=== PATIENT | female | born 1950 | race Caucasian/White ===

== ENCOUNTER 2019-08-17 20:31 | Inpatient (IN) | payer OTHER, SELFPAY ==
--- NOTE | ~2019-08-17 | XR_ITS ---
EXAMINATION: XR ankle LT min 3V EXAM DATE: 08/17/2019 22:58 INDICATION: Initial encounter following injury, with pain of the left ankle. TECHNIQUE: Left ankle frontal, lateral and oblique projections obtained and reviewed. There is no pr ior study for comparison. FINDINGS: The left ankle mortise appears intact. Sequela from prior medial malleolar avulsion frac ture. There are no acute fractures or dislocations identified. There is no subcutaneous gas. The so ft tissue is unremarkable. There are no radiopaque foreign bodies. IMPRESSION: No acute osseous findings. Reviewed, dictated and finalized at location A. IMPRESSION: No acute osseous findings.
--- NOTE | ~2019-08-17 | XR_ITS ---
EXAMINATION: XR abdomen NG/feed tube insert DATE: 08/24/2019 11:38 INDICATION: Nasogastric tube placement. TECHNIQUE: A supine view of the abdomen and lower chest was obtained for evaluation of feeding tube placement. COMPARISON: 08/21/2019 FINDINGS: Nasogastric tube tip in proximal side port in the body of the stomach. There appears to be significan t mass effect upon what appears to be gas-filled distal stomach which extends from left to right acro ss the upper abdomen cephalad to the transverse colon. No dilated small bowel to suggest obstruction. Cholecystectomy clips in the left upper quadrant. Airspace opacities in the left lower lung zone. Mi ld to moderate thoracolumbar spondylosis. IMPRESSION: 1. Nasogastric tube in the proximal stomach. 2. Nonspecific bowel gas pattern with apparent mass effect upon the caudal margin of the more distal stomach concerning for right upper quadrant mass. Recommend further evaluation with contrast-enhanced CT of the abdomen and pelvis. 3. Mild airspace opacities in the left mid to lower lung zone likely combination of atelectasis and p rominent left paracardial fat pad although pneumonia not excludable. Reviewed, dictated and finalized at location A. IMPRESSION: 1. Nasogastric tube in the proximal stomach. 2. Nonspecific bowel gas pattern with apparent mass effect upon the caudal dell in of the more distal stomach concerning for right upper quadrant mass. Recomme nd further evaluation with contrast-enhanced CT of the abdomen and pelvis. 3. Mild airspace opacities in the left mid to lower lung zone likely combinatio n of atelectasis and prominent left paracardial fat pad although pneumonia not excludable.
--- NOTE | ~2019-08-17 | CT_ITS ---
EXAMINATION: CT abdomen pelvis w con DATE: 08/25/2019 08:22 INDICATION: Cystic right upper quadrant mass TECHNIQUE: Computed tomography (CT) of the abdomen and pelvis was performed with 100 mL Omnipaque-350 intravenous contrast. Automated exposure control and iterative reconstruction technique were employe d. The dose-length product was 668.00 mGy-cm. COMPARISON: Ultrasound dated 08/24/2019 FINDINGS: Mild atelectasis at the left lower lobe and lingula. Heart size is normal. No pericardial or pleural effusion. Nasogastric tube tip possibly 3 cm below the level of the gastroesophageal junction. Small amount of likely refluxed fluid in the distal esophagus. 8 mm cyst in the left hepatic lobe. The comm on bile duct is mildly dilated to 10 mm and there is minimal central intrahepatic biliary ductal dila tion, both findings which are within normal limits post cholecystectomy with cholecystectomy clips at the gallbladder fossa. There is a large thin-walled fluid attenuation cystic lesion centered at the head of the pancreas whi ch measures 14.1 x 8.9 x 12.3 cm. There is a thin internal septation which appears incomplete with a large central perforation. No evident solid nodular soft tissue component. There is significant mass effect upon the adjacent structures with the distal stomach and duodenum extending around the periphe ry of the mass, the body of the pancreas and normal caliber main pancreatic duct are draped along the cephalad margin of the lesion and the main portal vein abutting the posterior margin of the lesion m ildly compressed between the cystic lesion and the main hepatic artery. The tail of the pancreas is u nremarkable. No surrounding inflammatory stranding to suggest abscess or acute pancreatitis/walled of f necrosis. No internal gas to suggest communication with the bowel. Spleen, bilateral adrenal glands are normal. Cortical scarring and 1.5 cm cyst at the left kidney. 7 mm lesion in the right kidney with well-defined margins but intermediate attenuation which is indeter minate but statistically most likely to represent a proteinaceous/hemorrhagic cyst. There are a few d iverticula along the colon without adjacent inflammatory change to suggest active colitis. Small marybeth l and appendix are normal. Bladder is normal. The uterus is not identified and has likely been surgic ally resected. No free intraperitoneal gas or fluid. No pathologically enlarged abdominal or pelvic l ymphadenopathy. Mild lumbar levocurvature with severe spondylosis. Hemangioma at L3. Moderate thoraci c spondylosis. IMPRESSION: 1. 14.1 x 8.9 x 12.3 cm thin-walled cystic mass centered at the head of the pancreas with no evident solid soft tissue component. The differential diagnosis includes pancreatic cyst, pseudocyst or macro cystic mucinous tumor. 2. Nasogastric tube tip 3 cm above the gastroesophageal junction. Recommend advancement by 10 cm to p lace the proximal side port below the level of the gastroesophageal junction. 3. Indeterminate 7 mm intermediate attenuation right renal lesion statistically most likely to repres ent a pronation/hemorrhagic cyst although solid enhancing neoplasm cannot be absolutely excluded. Rec ommend 6-12 month follow-up pre and postcontrast MRI or CT. Reviewed, dictated and finalized at location A. IMPRESSION: 1. 14.1 x 8.9 x 12.3 cm thin-walled cystic mass centered at the head of the barreto creas with no evident solid soft tissue component. The differential diagnosis i ncludes pancreatic cyst, pseudocyst or macrocystic mucinous tumor. 2. Nasogastric tube tip 3 cm above the gastroesophageal junction. Recommend adv ancement by [address] the proximal side port below the level of the gastro esophageal junction. 3. Indeterminate 7 mm intermediate attenuation rig
--- NOTE | ~2019-08-17 | XR_ITS ---
EXAMINATION: XR knee LT 3V DATE: 08/20/2019 08:35 INDICATION: Left knee injury and pain. TECHNIQUE: 3 views of left knee were obtained. COMPARISON: None. FINDINGS: Bone alignment is normal. No fracture. There is moderate osteoarthritis of medial and later al compartments and severe osteoarthritis of patellofemoral compartment. There is a small knee joint effusion. There are loose bodies in the knee joint measuring up to 12 mm. IMPRESSION: 1. Severe left knee osteoarthritis. 2. Small left knee joint effusion with loose bodies. Reviewed, dictated and finalized at location A.
--- NOTE | ~2019-08-17 | XR_ITS ---
XR chest 1V portable DATE: 08/19/2019 06:21 INDICATION: Cough TECHNIQUE: Portable upright AP chest on 08/19/2019 at 0550 hours COMPARISON: None FINDINGS: The lungs are hyperinflated,, with mild volume loss suggested on the left versus right and apparent mild leftward shift of the heart mediastinum. No pulmonary infiltrate or consolidation, pleu ral effusion or pulmonary vascular congestion or pneumothorax is evident. Diffuse osteopenia. Prominent osteoarthritic spurring at the left glenohumeral joint. Dextroscoliosis of the thoracolumbar spine. Surgical clips appear to overlie the right upper quadrant, likely due to cholecystectomy. IMPRESSION: Bilateral hyperinflation; suggestion of some volume loss of the left lung compared to the right Reviewed, dictated and finalized at location A. IMPRESSION: Bilateral hyperinflation; suggestion of some volume loss of the lef t lung compared to the right
--- NOTE | ~2019-08-17 | CT_ITS ---
EXAMINATION: CT brain wo con EXAM DATE: 08/17/2019 22:43 INDICATION: Weakness. TECHNIQUE: Spiral CT of the head was performed without contrast. Axial, coronal and sagittal images were reviewed. The dose-length product (DLP) for this examination was 681.00 mGy-cm. The exposure w as tailored according to patient size, and iterative reconstruction (ASIR) was used as additional dos e reduction technique. There is no prior study for comparison. FINDINGS: There is no acute intraparenchymal hemorrhage. No evidence of intraparenchymal brain mass lesion. No evidence of acute infarction. Please note that initial head CT has limited sensitivity f or small or acute infarctions. There is mild periventricular and subcortical hypodensity, nonspecific but probably related to small vessel ischemic disease. There is mild to moderate prominence of the sulci and ventricles related to cerebral atrophy. There is hyperostosis frontalis. There is intracr anial carotid arteriosclerosis. There are no extra-axial collections. There is no mass effect or mi dline shift. The orbits are unremarkable. Soft tissue is unremarkable. The visualized sinuses and mastoid air cells are well aerated. IMPRESSION: 1. No acute intracranial findings. 2. Chronic age related findings. Reviewed, dictated and finalized at location A.
--- NOTE | ~2019-08-17 | XR_ITS ---
EXAMINATION: XR small bowel follow through EXAM DATE: 08/25/2019 14:43 INDICATION: Dilated duodenum, retained gastric contents, vomiting. TECHNIQUE: Vessel Welder radiograph was acquired. Small bowel series was performed with water-soluble contr ast solution. This was injected through the nasogastric tube in place on patient arrival. A total of 5 KUB images were obtained with fluoroscopy time 0.0 minutes. Correlation was made with CT from [facility] same date. FINDINGS: On the 15 and 1 hour images, contrast remained in the stomach, the patient was reportedly w anting to lay on her left side, which would prevent dumping into the duodenum. On the 2 hour image, t here is contrast throughout the small bowel and starting to enter the colon. This further opacifies o n a 3.5 hour image. There is an intra-abdominal mass, most likely a pseudocyst correlating with CT obtained earlier causi ng mass effect on the gastric pylorus and duodenum which is draped around this. Ileal and jejunal fold patterns are normal. There is no small bowel wall thickening or mass effect d isplacing small bowel. There are no intraluminal filling defects identified. There is no small marybeth l dilation. Terminal ileum is normal in appearance. IMPRESSION: Pancreatic mass most likely large pancreatic head pseudocyst causing mass effect on gastr ic pylorus and duodenal sweep. Normal transit time of 2 hours. Reviewed, dictated and finalized at location A. IMPRESSION: Pancreatic mass most likely large pancreatic head pseudocyst causin g mass effect on gastric pylorus and duodenal sweep. Normal transit time of 2 h ours.
--- NOTE | ~2019-08-17 | XR_ITS ---
EXAMINATION: XR ankle RT min 3V EXAM DATE: 08/17/2019 22:58 INDICATION: Initial encounter following injury, with pain of the right ankle. TECHNIQUE: Right ankle frontal, lateral and oblique projections obtained and reviewed. There is no p rior study for comparison. FINDINGS: There is acute nondisplaced oblique fracture through the right fibular distal calf cyst ex tending into the syndesmosis. The right ankle mortise relationship appears intact. Closed, posttrauma tic fracture. There is overlying soft tissue swelling. No other acute findings. There are no acute fractures or dislocations identified. There is no subcutaneous gas. The soft tissue is unremarkable . There are no radiopaque foreign bodies. IMPRESSION: Acute nondisplaced right distal fibular metaphyseal fracture into syndesmosis; recommend orthopedic consult. Reviewed, dictated and finalized at location A. IMPRESSION: Acute nondisplaced right distal fibular metaphyseal fracture into s yndesmosis; recommend orthopedic consult.
--- NOTE | ~2019-08-17 | US_ITS ---
EXAMINATION: US right upper quadrant DATE: 08/24/2019 17:58 INDICATION: Elevated liver function tests. TECHNIQUE: Multiple grayscale and Doppler ultrasound images of the abdomen were obtained. COMPARISON: None FINDINGS: Evaluation is somewhat limited by large amount of gas scattered throughout the stomach and bowels lik shellie related to the recent endoscopy as well as relatively high riding position of the liver and right kidney resulting in scattered shadowing from the overlying ribs. The region of the pancreas is obscu red. Liver has normal echogenicity and contour. No liver lesion identified. No intrahepatic biliary d uct dilation suspected. Portal venous flow was seen in the hepatopetal, normal direction and has norm al Doppler waveform. The gallbladder is not visualized and per patient was resected in 1991. Common b ile duct measures 3-4 mm in diameter which is normal. Visualized portion of the right kidney demonstr ates normal contour and echogenicity with no hydronephrosis. There is a nonspecific large cystic lesi on measuring 12.3 x 8.4 x 14.5 cm in the right upper quadrant which likely accounts for the mass effe ct noted on the prior KUB. It is unclear if and from which organ or structure the cystic lesion arise s with possibilities including liver, common bile duct, pancreas, duodenum, right kidney, adrenal gla nd, retroperitoneum or vasculature. There is however no internal flow on color Doppler to suggest ane urysm. IMPRESSION: 1. Indeterminate 14.5 x 12.3 x 8.4 cm cystic structure in the right upper quadrant. Recommend contras t-enhanced CT for further evaluation. 2. Nonvisualized gallbladder which is reportedly surgically absent with no evident intrahepatic ducta l or ductal dilation. 3. Limited study due to extensive bowel gas likely related to recent endoscopy. Reviewed, dictated and finalized at location A. IMPRESSION: 1. Indeterminate 14.5 x 12.3 x 8.4 cm cystic structure in the right upper quadr ant. Recommend contrast-enhanced CT for further evaluation. 2. Nonvisualized gallbladder which is reportedly surgically absent with no evid ent intrahepatic ductal or ductal dilation. 3. Limited study due to extensive bowel gas likely related to recent endoscopy.
--- NOTE | ~2019-08-17 | XR_ITS ---
EXAMINATION: XR abdomen/kub 1V INDICATION: Abdominal distention TECHNIQUE: Supine views of the abdomen were obtained on 2 radiographs. COMPARISON: None FINDINGS: There are no dilated loops of bowel. The bowel gas pattern is normal. Surgical clips in the right upper quadrant are likely from prior cholecystectomy. There is moderate lumbar spondylosis. IMPRESSION: 1. No radiographic correlate for the patient's symptoms. Reviewed, dictated and finalized at location A.
[2019-08-17 20:39] VITALS: BP 110/51; PULSE 96; RESP 16; TEMP 36.9; O2SAT 100
--- NOTE | 2019-08-17 22:12 | ED_ITS ---
I attest that this documentation has been prepared under the direction and in the presence of Yolanda Fontenot MD. Bulmaro Carroll Scribe 08/17/19;22:12 HPI - Extremity Injury (Upper) General Chief Complaint: Extremity Injury, Upper Stated Complaint: bilateral ankle pain s/p fall Time Seen by Provider: 08/17/19 21:42 Related Data Allergies Allergy/AdvReac Type Severity Reaction Status Date / Time diphenhydramine Allergy Severe Other Verified 12/05/17 19:52 morphine Allergy Severe Other Verified 12/05/17 19:52 DIURETICS AdvReac Intermediate Other Uncoded 12/05/17 19:52 [facility] Social History Social History Gender identity (if verbalized by the patient): Female Course Vital Signs Vital signs: Vital Signs Temperature 98.4 F 08/17/19 20:39 Pulse Rate 96 08/17/19 20:39 Respiratory Rate 16 08/17/19 20:39 Blood Pressure 110/51 L 08/17/19 20:39 Pulse Oximetry 100 08/17/19 20:39 Temperature 98.4 F 08/17/19 20:39 Pulse Rate 96 08/17/19 20:39 Respiratory Rate 16 08/17/19 20:39 Blood Pressure 110/51 L 08/17/19 20:39 Pulse Oximetry 100 08/17/19 20:39
--- NOTE | 2019-08-17 22:17 | ED.GENADULT ---
HPI - General Adult General Chief complaint: Extremity Injury, Upper Stated complaint: bilateral ankle pain s/p fall Time Seen by Provider: 08/17/19 21:42 Source: patient and RN notes reviewed Mode of arrival: EMS Limitations: no limitations History of Present Illness HPI narrative: A 69 y/o female presents to the ED via EMS with constant, worsening, severe, HEBER ankle pain for the past 2 days. She states that she had a ground level fall 2 days ago and was seen at [place], then d/c home after having negative x-rays and a CT. She reports that she was able to ambulate with a cane for a couple days but that today she has been unable too walk d/t the pain. She notes that movement or trying to bare weight aggravates the pain and that she took 800 mg of Ibuprofen last night but denies it alleviating her pain. She also denies any fevers or numbness. complaint: HEBER ankle pain Onset (ago): day(s) (2) Location: lower extremity (HEBER ankles) Pain Consistency: constant (worsening) Relieving factors: none Exacerbating factors: movement and other (trying to bare weight) Associated symptoms: other (unable to ambulate d/t pain) Treatments prior to arrival: NSAID (Ibuprofen) Related Data Allergies Allergy/AdvReac Type Severity Reaction Status Date / Time diphenhydramine Allergy Severe Other Verified 12/05/17 19:52 morphine Allergy Severe Other Verified 12/05/17 19:52 DIURETICS AdvReac Intermediate Other Uncoded 12/05/17 19:52 Review of Systems Review of Systems: Narrative: CONSTITUTIONAL: Denies fever. MUSCULOSKELETAL: Reports HEBER ankle pain and not being able to ambulate d/t the pain. NEUROLOGIC: Denies numbness All systems reviewed & are unremarkable except as noted in HPI and below PMFSH Past Medical History Medical History (Updated 08/17/19 @ 23:54 by Yolanda Fontenot MD) MVP (mitral valve prolapse) Seizures Surgical History Surgical History (Updated 08/17/19 @ 22:39 by Bulmaro Carroll) Surgical history unknown Social History Social History (Updated 08/17/19 @ 22:39 by Bulmaro Carroll) Smoking status: Unknown if ever smoked Gender identity (if verbalized by the patient): Female Exam Narrative: Exam Narrative: GENERAL: Well-appearing, well-nourished, and in no acute distress. HEAD: Normocephalic, atraumatic. EYES: PERRLA and EOMI. ENT: Nares clear, no rhinorrhea or epistaxis. Mucous membranes moist. NECK: Supple. CHEST: Clear to auscultation. No respiratory distress. HEART: Regular rate and rhythm. No murmur heard. Normal peripheral pulses. ABDOMEN: Soft, nontender, nondistended, normal active bowel sounds. EXTREMITIES: Tenderness to the lateral and medial malleus of her HEBER ankles greatest over the right ankle, nonpitting edema to HEBER ankles, no deformity, DP pulses 2+ HEBER. Intact sensation distally. SKIN: Warm, dry, no rash. NEURO: No focal deficits. Alert and oriented X3. Course Course Emergency Course: Patient presented to the emergency department for evaluation of continued bilateral ankle pain after a fall several days ago. At the time of initial assessment, patient is neurovascularly intact. She has some point tenderness to bilateral ankles, greatest on the right lateral malleolus with some edema. No obvious deformity. Because the patient has been feeling weak, he wanted to expand the work-up. No focal neurological deficits on exam. X-ray imaging does show a right distal fibular oblique fracture. Patient will be splinted. Because the patient is having such pain and difficulty with ambulation, she will likely require placement as she is not been able to function well at home, and family cannot lift the patient. Patient was then admitted in stable condition. Vital Signs Vital signs: Vital Signs Temperature 36.9 C 08/17/19 20:39 Pulse Rate 96 08/17/19 20:39 Respiratory Rate 16 08/17/19 20:39 Blood Pressure 110/51 L 08/17/19 20:39 Pulse Oximetry 100 08/17/19 20:39 Temperature 36.9 C 08/17/19 20:39
--- NOTE | 2019-08-17 22:28 | ECG_ITS ---
Measurements Intervals [place] Rate: 92 P: 23 ID: [id number] QRS: 30 QRSD: 86 T: 1 QT: 374 QTc: 464 Interpretive Statements SINUS RHYTHM EARLY PRECORDIAL R/S TRANSITION NONSPECIFIC ST & T-WAVE ABNORMALITY- ANT/INF LEADS BORDERLINE ECG Electronically Signed On 08-18-2019 7:08:43 CDT by Ayaz East D.O.
[2019-08-17 23:16] LABS: Basophils Absolute Auto 0.1 K/mm3 (0.0-0.1); Basophils Percent Auto 0.5 % (0.2-1.2); Eosinophils Absolute Auto 0.2 K/mm3 (0-0.3); Eosinophils Percent Auto 1.7 % (0-4.4); Hematocrit 38.7 % (37.0-47.0); Hemoglobin 12.9 g/dL (12.0-15.0); Immature Granulocyte Absolute 0.06 K/mm3 (0.00-0.031); Immature Granulocyte Percent A 0.6 % (0-0.5); Lymphocytes Absolute Auto 2.32 K/mm3 (0.9-3.2); Lymphocytes Percent Auto 23.6 % (18.3-44.2); Mean Corpuscular HGB Conc 33.3 g/dl (32-36); Mean Corpuscular Hemoglobin 32.7 pg (26-34); Mean Corpuscular Volume 98.2 fl (80-100); Mean Platelet Volume 9.8 fl (7.4-10.4); Monocytes Absolute Auto 1.3 K/mm3 (0.1-0.6); Monocytes Percent Auto 13.5 % (2.6-8.5); Neutrophils Absolute Auto 5.9 K/mm3 (1.3-6.7); Neutrophils Percent Auto 60.1 % (45.5-73.1); Platelet Count Result 283 k/mm3 (150-375); Red Blood Count 3.94 M/mm3 (4.2-5.4); Red Cell Distribution Width 13.4 % (11.5-14.5); White Blood Count 9.9 K/mm3 (4.5-10.0)
[2019-08-17] MEDS: SODIUM CHLORIDE 0.9% IV 1,000 ML 999 ML IV CONT (23:28)
[2019-08-17] MEDS: ACETAMINOPHEN 500 MG TABLET 1000 MG PO (23:28)
[2019-08-17 23:32] LABS: Blood Urea Nitrogen 13 mg/dL (7-17); CRP 7.9 mg/dL (<1.0); Calcium 8.7 mg/dL (8.4-10.2); Carbon Dioxide 26 mmol/L (22-30); Chloride 107 mmol/L (98-107); Estimated Glomerular Filt Rate > 60; Glucose 115 mg/dL (65-105); INR 1.1; Potassium 3.9 mmol/L (3.4-5.0); Prothrombin Time 13.8 Seconds (11.1-14.7); Sodium 138 mmol/L (137-145)
[2019-08-17 23:33] LABS: Partial Thromboplastin Time 46.7 SECONDS (22.3-36.8)
[2019-08-17] MEDS: KETOROLAC 15 MG/ML VIAL (*BKC) 30 MG IV PUSH (23:41)
[2019-08-17 23:50] LABS: Troponin I < 0.012 ng/mL (0.000-0.034)
[2019-08-17 23:56] LABS: Erythrocyte Sedimentation Rate 43 mm/hr (0-20)
[2019-08-17 23:58] VITALS: TEMP 36.8
[2019-08-18] VITALS (10 sets, daily range): BP systolic 100–138; BP diastolic 47–68; PULSE 84–100; RESP 16–18; TEMP 36.4–36.8; O2SAT 93–96; BMI 30.7
[2019-08-18 00:35] LABS: Add Urine Microscopic? YES; Appearance Urine Clear (Clear); Bacteria Urine Trace /hpf; Bilirubin Urine Negative (Negative); Blood Urine Negative (Negative); Color Urine Yellow (Yellow); Glucose Urine UA Negative (Negative); Ketones Urine Negative (Negative); Leukocyte Esterase Ur Trace LEU/UL (Negative); Mucus Urine Rare /lpf; Nitrate Urine Negative (Negative); Protein Urine Negative (Negative); RBC Urine 0-2 /hpf (0-2); Specific Grav Ur 1.018 (1.001-1.035); Squamous Epithelial Cell Urine Few /hpf (Few); Urobilinogen Urine Negative mg/dL (<2.0); WBC Urine 0-3 /hpf
--- NOTE | 2019-08-18 02:31 | ADMGEN ---
This patient, Roopa Hough, was admitted to [facility] Surg Room 331-02. Patient/family oriented to hospital policies and general routines including ID bracelet, bed and alarms, visiting hours, pain management, procedures, bathroom and other care routines, personal items, smoking policy, room service/diet, and visiting hours. Valuables list has been completed. Information on how to activate the Rapid Response Team has been discussed. Patient/Family are encouraged to report perceived risks to care and to ask questions if they do not understand what they are told or what they should do.
[2019-08-18] MEDS: IBUPROFEN 400 MG TABLET PO (09:41)
[2019-08-18] MEDS: DOCUSATE SODIUM 100 MG CAPSULE PO ×2 (09:45→18:16)
[2019-08-18] MEDS: VITAMIN E 400 UNIT CAPSULE PO (09:45)
[2019-08-18] MEDS: CHOLECALCIFEROL 1,000 UNIT TABLET 1000 UNITS PO (09:45)
[2019-08-18] MEDS: PRIMIDONE 250 MG TABLET PO ×3 (09:45→18:17)
[2019-08-18] MEDS: ASPIRIN 325 MG TABLET PO (09:45)
[2019-08-18] MEDS: ASCORBIC ACID 500 MG TABLET PO (09:45)
[2019-08-18] MEDS: OMEGA 3 POLYUNSAT FATTY ACIDS 1 GM CAP PO ×3 (09:45→18:16)
[2019-08-18] MEDS: PROPRANOLOL HCL 20 MG TABLET 80 MG PO ×2 (09:46→18:17)
[2019-08-18] MEDS: THIAMINE HCL 100 MG TABLET PO (09:47)
--- NOTE | 2019-08-18 10:30 | PCOTNOTE ---
Awaiting orthopedic consult. Will attempt OT evaluation after consult and when medically appropriate.
--- NOTE | 2019-08-18 11:56 | PM.PROC ---
Procedure Note - Detailed Date of procedure: 08/20/19 Pre-op diagnosis: right fibular fracture Surgeon: Dharmesh Ahmadi MD
--- NOTE | 2019-08-18 13:01 | PCPTNOTE ---
PT eval on hold awaiting Ortho consult. Will follow.
[2019-08-18 14:05] LABS: Vitamin D 25 Hydroxy 28.1 ng/mL
--- NOTE | 2019-08-18 16:59 | PM.CNOR ---
Assessment and Plan Additional Plan Patient is a 69-year-old female who fell 3 days ago injuring her right ankle. two weeks ago she fell injuring her left ankle and this was getting better. She has been unable to get around with her new injury to the right ankle. she was seen in the ER last night and had x-rays of both ankles. The ankle x-ray on the left is negative. The ankle x-ray in the right demonstrates a truly nondisplaced oblique Jennifer B type lateral malleolus fracture with no disruption of the mortise visible. She is admitted for safety reasons as she is unable to ambulate at home. She does have a history of heart problems and takes a full-strength aspirin daily. She denied any personal or family history of thromboembolic complications however her sister reported that their father of pulmonary emboli. He had other conditions he had these with the [place] as well as congestive heart failure but she does have a positive family history and since she is going to be quite immobile potentially I would recommend some sort of DVT prophylaxis pharmacologically. Since she is on a full-strength aspirin per day I will start her on Lovenox 40 mg daily subcu. Her platelets were 283,000. On examination today she is a pleasant female in no acute distress. She had minimal tenderness over the distal fibula on the left ankle just proximal to the lateral malleolus no swelling foot was nontender should full range of motion over foot and ankle. on the right side she has a well-padded OCL type short-leg splint in place that is comfortable for her. She wiggles her toes she reports no numbness or tingling. She denies any other injury. I will ask physical therapy to work on transfers and also ambulation for short distances and she is able to Lexie not to wean Junior non-weight placement in rehab is being considered. Her 25 hydroxy vitamin D was 28. We will supplement with ergo calciferol 90284 units per week for 8 weeks. She should have a bone density test done after discharge and I have discussed this with her in her sister. We can get this when it is convenient. After tumor 3 weeks when her symptoms improve we can see if she can tolerate some light partial weight-bearing in a Cam walker boot which will improve her activity level. I expect that the fracture is stable enough to allow that History of Present Illness HPI Consult date: 08/18/19 Chief complaint: right fibular fracture PMFSH Past Medical History Medical History (Updated 08/17/19 @ 23:54 by Yolanda Fontenot MD) MVP (mitral valve prolapse) Seizures Surgical History Surgical History (Updated 08/17/19 @ 22:39 by Bulmaro Carroll) Surgical history unknown Family History Family History (Updated 08/18/19 @ 02:51 by Ria Lay RN) Mother Uterine cancer Father Emphysema lung Mesothelioma Sibling Asthma Bronchitis Social History Social History (Updated 08/17/19 @ 22:39 by Bulmaro Carroll) Smoking status: Never smoker Second hand tobacco smoke exposure: Yes Alcohol intake: never Substance use: never Gender identity (if verbalized by the patient): Female Spiritual care concerns: No Agree to blood products: Yes Meds Home Medications and Allergies Home Medications Medication Instructions Recorded Confirmed Type ascorbic acid (vitamin C) [Vitamin 500 mg PO DAILY 08/18/19 08/18/19 History C] aspirin [Tank Aspirin] 325 mg PO DAILY 08/18/19 08/18/19 History cholecalciferol (vitamin D3) 1,000 unit PO DAILY 08/18/19 08/18/19 History [Vitamin D3] docusate sodium 100 mg PO BID 08/18/19 08/18/19 History melatonin 3 mg PO HS 08/18/19 08/18/19 History omega 6-mfn-tna-fish oil [Fish Oil] 1 cap PO TID 08/18/19 08/18/19 History phenytoin sodium extended 100 mg PO BID 08/18/19 08/18/19 History primidone 250 mg PO TID 08/18/19 08/18/19 History propranolol 80 mg PO BID 08/18/19 08/18/19 History thiamine HCl (vitamin B1) 100 mg PO DAILY 08/18/19 08/18/19 History vitam
--- NOTE | 2019-08-18 17:46 | PM.IMHP ---
H&P: HPI History of Present Illness Chief complaint: right fibular fracture Narrative: Roopa Hough is a 69 year old female fell out of her bed, left ankle folded over and she fell straight down. pt 69 y/o was seen at [place], and was discharged home after having negative x-rays and a CT.pt had having continued ankle pain, pt had X-ray imaging does show a right distal fibular oblique fracture.pt to see orthopedics. Splint in place. pt has history of mvp , seizures, pt is having bad cough today. no other symptoms apart from ankle pain Review of Systems Review of Systems: All systems reviewed & are unremarkable except as noted in HPI and below Respiratory: Respiratory: Reports cough Musculoskeletal: Comments: ankle pain PMFSH Past Medical History Medical History MVP (mitral valve prolapse) Seizures Surgical History Surgical History Surgical history unknown Family History Family History Mother Uterine cancer Father Emphysema lung Mesothelioma Sibling Asthma Bronchitis Social History Social History Smoking status: Never smoker Second hand tobacco smoke exposure: Yes Alcohol intake: never Substance use: never Gender identity (if verbalized by the patient): Female Spiritual care concerns: No Agree to blood products: Yes Meds Home Medications and Allergies Home Medications Medication Instructions Recorded Confirmed Type ascorbic acid (vitamin C) [Vitamin 500 mg PO DAILY 08/18/19 08/18/19 History C] aspirin [Tank Aspirin] 325 mg PO DAILY 08/18/19 08/18/19 History cholecalciferol (vitamin D3) 1,000 unit PO DAILY 08/18/19 08/18/19 History [Vitamin D3] docusate sodium 100 mg PO BID 08/18/19 08/18/19 History melatonin 3 mg PO HS 08/18/19 08/18/19 History omega 8-aex-srp-fish oil [Fish Oil] 1 cap PO TID 08/18/19 08/18/19 History phenytoin sodium extended 100 mg PO BID 08/18/19 08/18/19 History primidone 250 mg PO TID 08/18/19 08/18/19 History propranolol 80 mg PO BID 08/18/19 08/18/19 History thiamine HCl (vitamin B1) 100 mg PO DAILY 08/18/19 08/18/19 History vitamin E 400 unit PO DAILY 08/18/19 08/18/19 History Allergies Allergy/AdvReac Type Severity Reaction Status Date / Time diphenhydramine Allergy Severe Other Verified 12/05/17 19:52 morphine Allergy Severe Other Verified 12/05/17 19:52 DIURETICS AdvReac Intermediate Other Uncoded 12/05/17 19:52 Vital Signs Vital Signs - 24 hr 08/17/19 20:39 08/17/19 23:58 08/18/19 00:11 Temperature 36.9 C 36.8 C 36.8 C Pulse Rate 96 Respiratory Rate 16 Blood Pressure 110/51 L Pulse Oximetry 100 08/18/19 01:05 08/18/19 02:10 08/18/19 06:00 Temperature 36.8 C 36.4 C 36.4 C Pulse Rate 90 98 91 Respiratory Rate 18 18 18 Blood Pressure 110/68 100/63 113/60 Pulse Oximetry 93 93 95 08/18/19 09:46 08/18/19 14:40 Temperature 36.4 C Pulse Rate 100 90 Respiratory Rate 16 Blood Pressure 106/47 L Pulse Oximetry 95 Exam Const: General: other (morbidly obese ) Nutritional Appearance: well nourished HENMT: Head: normocephalic Eyes: General: appearance normal, both eyes and all related structures Pupils: Equal, round and reactive pupils present Neck: Neck: supple Chest: Chest palpation & inspection: normal inspection of the chest Resp: Effort & Inspection: normal respiratory effort Auscultation: wheezes Cardio: Jugular venous distension: no JVD Rhythm: regular rhythm Heart sounds: S1 normal heart sound present and S2 normal heart sound present GI: Inspection: normal to inspection GI Palp: No abdominal tenderness, Yes Soft to palpation and No Tenderness to palpation present (GI) Auscultation: normal bowel sounds : General: Yes no CVA tenderness Back/Spine/Pelvis: Juany
[2019-08-18] MEDS: ALBUTEROL SULFATE NEB 2.5 MG/0.5 ML INH INHALATION (19:26)
[2019-08-18] MEDS: MELATONIN 3 MG TABLET PO (22:16)
[2019-08-18] MEDS: PHENYTOIN SODIUM 100 MG CAP 200 MG PO (22:16)
[2019-08-19] MEDS: GUAIFENESIN 200 MG/10 ML UDC PO ×3 (05:50→20:57)
[2019-08-19 06:00] VITALS: BP 105/55; PULSE 88; RESP 18; TEMP 36.7; O2SAT 94
[2019-08-19 06:43] LABS: Hemoglobin 11.6 g/dL (12.0-15.0); Mean Corpuscular HGB Conc 33.1 g/dl (32-36); Mean Corpuscular Hemoglobin 32.7 pg (26-34); Mean Corpuscular Volume 98.6 fl (80-100); Platelet Count Result 245 k/mm3 (150-375); Red Blood Count 3.55 M/mm3 (4.2-5.4); Red Cell Distribution Width 13.4 % (11.5-14.5)
[2019-08-19 07:00] LABS: Blood Urea Nitrogen 13 mg/dL (7-17); Calcium 8.3 mg/dL (8.4-10.2); Carbon Dioxide 23 mmol/L (22-30); Chloride 110 mmol/L (98-107); Estimated CRCL calculation 77 ml/min; Estimated Glomerular Filt Rate > 60; Glucose 110 mg/dL (65-105); Potassium 4.1 mmol/L (3.4-5.0); Sodium 140 mmol/L (137-145)
[2019-08-19] MEDS: VITAMIN E 400 UNIT CAPSULE PO (09:47)
[2019-08-19] MEDS: ENOXAPARIN 40 MG/0.4 ML SYRINGE SUB-Q (09:47)
[2019-08-19] MEDS: ASCORBIC ACID 500 MG TABLET PO (09:48)
[2019-08-19] MEDS: DOCUSATE SODIUM 100 MG CAPSULE PO ×2 (09:48→18:32)
[2019-08-19] MEDS: CHOLECALCIFEROL 1,000 UNIT TABLET 1000 UNITS PO (09:48)
[2019-08-19] MEDS: PRIMIDONE 250 MG TABLET PO ×3 (09:48→18:32)
[2019-08-19] MEDS: ASPIRIN 325 MG TABLET PO (09:48)
[2019-08-19] MEDS: OMEGA 3 POLYUNSAT FATTY ACIDS 1 GM CAP PO ×3 (09:48→18:32)
[2019-08-19] MEDS: ERGOCALCIFEROL 50,000 UNIT CAPSULE 50000 UNITS PO (09:48)
[2019-08-19 09:52] VITALS: PULSE 85
[2019-08-19] MEDS: PROPRANOLOL HCL 20 MG TABLET 80 MG PO ×2 (09:52→18:33)
[2019-08-19] MEDS: THIAMINE HCL 100 MG TABLET PO (10:23)
--- NOTE | 2019-08-19 13:42 | PM.IMPN ---
Progress Note: A&P Assessment and Plan (1) Cough: Code(s): R05 - Cough Status: Acute Assessment and Plan: Robuttisin ordered, albuterol nebs ordered (2) Seizures: Code(s): R56.9 - Unspecified convulsions Status: Acute Assessment and Plan: Continue home medications (3) MVP (mitral valve prolapse): Code(s): I34.1 - Nonrheumatic mitral (valve) prolapse Status: Acute Assessment and Plan: Continue home medicatins (4) Closed right fibular fracture: Qualifiers: Encounter type: initial encounter Fibula location: distal Fracture morphology: unspecified fracture morphology Qualified Code(s): S82.831A - Other fracture of upper and lower end of right fibula, initial encounter for closed fracture Code(s): S82.401A - Unspecified fracture of shaft of right fibula, initial encounter for closed fracture Status: Acute Assessment and Plan: Seen by orthopedics, PT/ OT to continue, due to increasing ankle pain, fracture, splint in place. Pt wants rehab placement. Subjective Date/time seen: 08/19/19 13:42 Interval history: 69 year old female fell out of her bed, her left ankle folded over and she fell straight down. pt was discharged home after having negative x-rays and a CT from [place]. Pt had having continued ankle pain, pt had X-ray imaging does show a right distal fibular oblique fracture. Pt seen by orthopedics. Splint in place. Pt has history of mvp , seizures, both are stable. Pt still having bad cough today, other symptoms apart from ankle pain. Cxr shows hyperinflation of lungs. continue albuterol treatments, pt doing well with physical theraphy wanting to go to rehab placement. Review of Systems Review of Systems: All systems reviewed & are unremarkable except as noted in HPI and below Respiratory: Respiratory: Reports cough Musculoskeletal: Comments: Bilateral ankle pain Exam Const: General: cooperative and healthy appearing; No in distress Nutritional Appearance: overweight Orientation/consciousness: oriented to person HENMT: Head: normal to inspection Resp: Effort & Inspection: no respiratory distress Auscultation: wheezes expiratory wheezes Cardio: Rate: regular rate Rhythm: regular rhythm GI: Inspection: normal to inspection GI Palp: No abdominal tenderness Auscultation: normal bowel sounds Neuro: General: oriented to person Extrem: General: other (R leg in splint ) Objective Data Vital Signs Vital Signs: Vital Signs - 24 hr 08/18/19 14:40 08/18/19 18:17 08/18/19 19:29 Temperature 36.4 C Pulse Rate 90 84 87 Respiratory Rate 16 16 Blood Pressure 106/47 L Pulse Oximetry 95 08/18/19 19:37 08/18/19 22:00 08/19/19 06:00 Temperature 36.6 C 36.7 C Pulse Rate 89 93 88 Respiratory Rate 16 16 18 Blood Pressure 138/68 105/55 L Pulse Oximetry 96 94 08/19/19 09:52 Temperature Pulse Rate 85 Respiratory Rate Blood Pressure Pulse Oximetry Intake/Output Intake/Output: Intake & Output 08/16/19 08/17/19 08/18/19 08/19/19 23:59 23:59 23:59 23:59 Intake Total 1910 400 Output Total 200 600 Balance 1710 -200 Meds/Results Medications: Active Medications Generic Name Dose Route Start Last Admin Trade Name Freq PRN Reason Stop Dose Admin Hydrocodone Bitart/Acetaminophen 2 tab 08/18/19 00:09 08/19/19 00:51 [place] 5-325 Mg PO 2 tab Q4H PRN Administration Pain Rated 7-10 Albuterol 2.5 mg 08/18/19 16:32 08/18/19 19:26 Albuterol Sulf Neb 2.5mg/0.5ml INHALATION 2.5 mg Q6HRT PRN Administration Shortness Of Breath Ascorbic Acid 500 mg 08/18/19 09:00 08/19/19 09:48 Vitamin C PO 500 mg DAILY TRAVIS Administration Aspirin 325 mg 08/18/19 09:00 08/19/19 09:48 Aspirin PO 325 mg DAILY TRAVIS Administration Docusate Sodium 100 mg 08/18/19 09:00 08/19/19 09:48 Colace Capsule PO 100 mg BID TRAVIS Administration Enoxaparin So
[2019-08-19 14:54] VITALS: BP 98/57; PULSE 84; RESP 16; TEMP 36.4; O2SAT 95
[2019-08-19 18:33] VITALS: PULSE 96
[2019-08-19] MEDS: MELATONIN 3 MG TABLET PO (20:56)
[2019-08-19] MEDS: PHENYTOIN SODIUM 100 MG CAP 200 MG PO (20:57)
[2019-08-19 22:00] VITALS: BP 112/58; PULSE 85; RESP 18; TEMP 36.3; O2SAT 92
[2019-08-20 06:00] VITALS: BP 147/65; PULSE 88; RESP 20; TEMP 36.7; O2SAT 97
--- NOTE | 2019-08-20 07:37 | PM.PNORT ---
Progress Note: A&P Additional Plan So patient yesterday also at 7 a.m. but did not leave a note as she not been on that since the evening before I saw her . Yesterday she did get up and was able to take a few steps in the room. a she had tolerated 2 Amis better if she can't put the splint on the right on the ground without bearing any weight. I think that would be fine. She did this without having significant problems of her left ankle but she complains of significant pain in the left knee. with her 1st fall the 1 prior to the fall that resulted in a right ankle fracture she states she hurt her left knee and when I move the left knee slightly in rotation she yells out with pain in the knee and points to the antral lateral aspect of the knee. She had minimal medial and lateral tenderness over the medial femoral condyle medial joint line tibial plateau or lateral femoral condyle lateral joint line lateral plateau. No significant tenderness over the anterior aspect of the knee. She had no effusion the knee but she does have pain with patellofemoral grind yelling out again when I do this. She states she has no history of any prior problems with her knee. we will obtain an x-ray of her left knee today to evaluate this. My suspicion is that she has some underlying arthritis has aggravated the arthritis with her fall. If no fracture is seen radiographically a cortisone shot might be hopeful for. Clinically I do not suspect a fracture based on her symptoms and absence of effusion. added rotate her left hip back and forth without out rotating the knee she denied any discomfort with that Impression 1. Nondisplaced B[place] B right lateral malleolus fracture. Plan is non operative treatment. 2. Left knee pain x-rays ordered. We have were on Lovenox for DVT prophylaxis and she is very inactive now. Subjective Subjective Date/Time Seen: 08/20/19 07:37 Objective Data Vital Signs Vital Signs: Vital Signs - 24 hr 08/19/19 09:52 08/19/19 14:54 08/19/19 18:33 Temperature 36.4 C Pulse Rate 85 84 96 Respiratory Rate 16 Blood Pressure 98/57 L Pulse Oximetry 95 08/19/19 22:00 08/20/19 06:00 Temperature 36.3 C L 36.7 C Pulse Rate 85 88 Respiratory Rate 18 20 Blood Pressure 112/58 L 147/65 H Pulse Oximetry 92 97 Intake/Output Intake/Output: Intake & Output 08/17/19 08/18/19 08/19/19 08/20/19 23:59 23:59 23:59 23:59 Intake Total 1910 2220 340 Output Total 535 803 3353 Balance 1710 1620 -910 Meds/Results Medications: Active Medications Generic Name Dose Route Start Last Admin Trade Name Freq PRN Reason Stop Dose Admin Hydrocodone Bitart/Acetaminophen 2 tab 08/18/19 00:09 08/19/19 00:51 [place] 5-325 Mg PO 2 tab Q4H PRN Administration Pain Rated 7-10 Albuterol 2.5 mg 08/18/19 16:32 08/18/19 19:26 Albuterol Sulf Neb 2.5mg/0.5ml INHALATION 2.5 mg Q6HRT PRN Administration Shortness Of Breath Ascorbic Acid 500 mg 08/18/19 09:00 08/19/19 09:48 Vitamin C PO 500 mg DAILY TRAVIS Administration Aspirin 325 mg 08/18/19 09:00 08/19/19 09:48 Aspirin PO 325 mg DAILY TRAVIS Administration Docusate Sodium 100 mg 08/18/19 09:00 08/19/19 18:32 Colace Capsule PO 100 mg BID TRAVIS Administration Enoxaparin Sodium 40 mg 08/19/19 09:00 08/19/19 09:47 Lovenox SUB-Q 40 mg DAILY TRAVIS Administration Ergocalciferol 50,000 unit 08/19/19 09:00 08/19/19 09:48 Drisdol PO 50,000 unit WEEKLY TRAVIS Administration Fish Oil 1 gm 08/18/19 09:00 08/19/19 18:32 Lovaza PO 1 gm TID TRAVIS Administration Guaifenesin 200 mg 08/18/19 18:50 08/19/19 20:57 Guaifenesin Liq PO 200 mg Q4H PRN Administration Cough Melatonin 3 mg 08/18/19 21:00 08/19/19 20:56 Melatonin PO 3 mg HS TRAVIS Administration Phenytoin Sodium 200 mg 08/18/19 21:00 08/19/19 20:57 Dilantin Kapseals PO 200 mg HS TRAVIS Administration Primidone 250 mg 08/18/19 09:00
[2019-08-20 09:35] VITALS: PULSE 84
[2019-08-20] MEDS: VITAMIN E 400 UNIT CAPSULE PO (09:35)
[2019-08-20] MEDS: ASCORBIC ACID 500 MG TABLET PO (09:35)
[2019-08-20] MEDS: PRIMIDONE 250 MG TABLET PO ×3 (09:35→17:37)
[2019-08-20] MEDS: ENOXAPARIN 40 MG/0.4 ML SYRINGE SUB-Q (09:35)
[2019-08-20] MEDS: ASPIRIN 325 MG TABLET PO (09:35)
[2019-08-20] MEDS: PROPRANOLOL HCL 20 MG TABLET 80 MG PO ×2 (09:35→17:37)
[2019-08-20] MEDS: OMEGA 3 POLYUNSAT FATTY ACIDS 1 GM CAP PO ×3 (09:35→17:37)
[2019-08-20] MEDS: THIAMINE HCL 100 MG TABLET PO (09:35)
[2019-08-20] MEDS: CHOLECALCIFEROL 1,000 UNIT TABLET 1000 UNITS PO (09:35)
[2019-08-20] MEDS: DOCUSATE SODIUM 100 MG CAPSULE PO ×2 (09:35→17:37)
[2019-08-20] MEDS: methylPREDNISolone (MEDROL) DOSEPACK 4 MG TABLETS PO ×4 (13:40→21:42)
[2019-08-20 14:00] VITALS: BP 100/60; PULSE 85; RESP 18; TEMP 36.6; O2SAT 95
--- NOTE | 2019-08-20 14:28 | PM.IMPN ---
Progress Note: A&P Assessment and Plan (1) Cough: Code(s): R05 - Cough Status: Acute Assessment and Plan: Robuttisin ordered, albuterol nebs ordered, add medrol dose pack (2) Seizures: Code(s): R56.9 - Unspecified convulsions Status: Acute Assessment and Plan: Continue home medications (3) MVP (mitral valve prolapse): Code(s): I34.1 - Nonrheumatic mitral (valve) prolapse Status: Acute Assessment and Plan: Continue home medicatins (4) Closed right fibular fracture: Qualifiers: Encounter type: initial encounter Fibula location: distal Fracture morphology: unspecified fracture morphology Qualified Code(s): S82.831A - Other fracture of upper and lower end of right fibula, initial encounter for closed fracture Code(s): S82.401A - Unspecified fracture of shaft of right fibula, initial encounter for closed fracture Status: Acute Assessment and Plan: Seen by orthopedics, PT/ OT to continue, due to increasing ankle pain, fracture, splint in place. Pt wants rehab placement. Awaiting placement. Subjective Date/time seen: 08/20/19 14:28 Interval history: 69 year old female fell out of her bed, her left ankle folded over and she fell straight down. pt was discharged home after having negative x-rays and a CT from [place]. Pt had having continued ankle pain, pt had X-ray imaging does show a right distal fibular oblique fracture. Pt seen by orthopedics. Splint in place. Pt has history of mvp , seizures, both are stable. Pt still having bad cough today, other symptoms apart from ankle pain. Cxr shows hyperinflation of lungs. continue albuterol treatments, pt doing well with physical theraphy wanting to go to rehab placement. Review of Systems Review of Systems: All systems reviewed & are unremarkable except as noted in HPI and below Respiratory: Respiratory: Reports cough Exam Const: General: cooperative, healthy appearing and other (morbidly obese ); No in distress Nutritional Appearance: well nourished and overweight Orientation/consciousness: oriented to person HENMT: Head: normal to inspection and normocephalic Eyes: General: appearance normal, both eyes and all related structures Pupils: Equal, round and reactive pupils present Neck: Neck: supple Chest: Chest palpation & inspection: normal inspection of the chest Resp: Effort & Inspection: normal respiratory effort and no respiratory distress Auscultation: wheezes expiratory wheezes Cardio: Jugular venous distension: no JVD Rate: regular rate Rhythm: regular rhythm Heart sounds: S1 normal heart sound present and S2 normal heart sound present GI: Inspection: normal to inspection Auscultation: normal bowel sounds : General: Yes no CVA tenderness Back/Spine/Pelvis: Back: no CVA tenderness Skin: General skin exam: normal color and dry skin Neuro: General: oriented to person Cranial nerves: Yes CN's II-XII intact bilaterally and Yes Equal, round and reactive pupils present Cognition (Neuro): normal cognition Speech: normal speech Motor exam (neuro): 5/5 motor strength present throughout Extrem: General: other (R leg in splint ) Psych: Appearance: grossly normal Mental Status: mental status grossly normal Objective Data Vital Signs Vital Signs: Vital Signs - 24 hr 08/19/19 14:54 08/19/19 18:33 08/19/19 22:00 Temperature 36.4 C 36.3 C L Pulse Rate 84 96 85 Respiratory Rate 16 18 Blood Pressure 98/57 L 112/58 L Pulse Oximetry 95 92 08/20/19 06:00 08/20/19 09:35 Temperature 36.7 C Pulse Rate 88 84 Respiratory Rate 20 Blood Pressure 147/65 H Pulse Oximetry 97 Intake/Output Intake/Output: Intake & Output 08/17/19 08/18/19 08/19/19 08/20/19 23:59 23:59 23:59 23:59 Intake Total 1910 2220 820 Output Total 330 635 3068 Balance 1710 1620 -430 Meds/Results Medications: Active Medications Generic Name Dose Route Start Last Adm
[2019-08-20 17:36] VITALS: BP 105/58; PULSE 92; RESP 18; TEMP 36.8; O2SAT 97
[2019-08-20 17:37] VITALS: PULSE 92
[2019-08-20] MEDS: FAMOTIDINE 20 MG TABLET PO (17:37)
[2019-08-20] MEDS: ONDANSETRON INJ 4 MG/2 ML VIAL IV PUSH ×2 (18:38→23:00)
[2019-08-20] MEDS: MELATONIN 3 MG TABLET PO (21:41)
[2019-08-20] MEDS: PHENYTOIN SODIUM 100 MG CAP 200 MG PO (21:42)
[2019-08-20] MEDS: CALCIUM CARBONATE (TUMS) 500 MG (200 MG ELEMENTAL) PO (21:48)
[2019-08-20 22:00] VITALS: BP 117/65; PULSE 84; RESP 20; TEMP 36.9; O2SAT 95
[2019-08-21] MEDS: PROMETHAZINE HCL 25 MG/ML AMPUL IM (02:22)
[2019-08-21] MEDS: methylPREDNISolone (MEDROL) DOSEPACK 4 MG TABLETS PO ×4 (05:42→20:48)
[2019-08-21 06:00] VITALS: BP 118/67; PULSE 108; RESP 18; TEMP 36.5; O2SAT 94
[2019-08-21 06:20] LABS: Hemoglobin 13.7 g/dL (12.0-15.0); Mean Corpuscular HGB Conc 33.4 g/dl (32-36); Mean Corpuscular Volume 98.8 fl (80-100); Mean Platelet Volume 9.8 fl (7.4-10.4); Platelet Count Result 286 k/mm3 (150-375); Red Blood Count 4.15 M/mm3 (4.2-5.4); Red Cell Distribution Width 13.5 % (11.5-14.5)
[2019-08-21 06:37] LABS: Blood Urea Nitrogen 14 mg/dL (7-17); Calcium 9.1 mg/dL (8.4-10.2); Carbon Dioxide 30 mmol/L (22-30); Chloride 103 mmol/L (98-107); Estimated CRCL calculation 77 ml/min; Estimated Glomerular Filt Rate > 60; Glucose 134 mg/dL (65-105); Potassium 3.8 mmol/L (3.4-5.0); Sodium 138 mmol/L (137-145)
[2019-08-21 10:05] VITALS: PULSE 100
[2019-08-21] MEDS: PROPRANOLOL HCL 20 MG TABLET 80 MG PO ×2 (10:05→16:55)
[2019-08-21] MEDS: PRIMIDONE 250 MG TABLET PO ×3 (10:07→16:54)
[2019-08-21] MEDS: CALCIUM CARBONATE (TUMS) 500 MG (200 MG ELEMENTAL) PO (10:47)
[2019-08-21] MEDS: ENOXAPARIN 40 MG/0.4 ML SYRINGE SUB-Q (10:47)
[2019-08-21] MEDS: ONDANSETRON INJ 4 MG/2 ML VIAL IV PUSH ×3 (10:49→20:53)
[2019-08-21] MEDS: LIDOCAINE HCL 1% LOCAL INJ 20 ML VIAL 3 ML INFILTRATE (11:34)
[2019-08-21] MEDS: BETAMETHASONE SOD PHOS/ACETATE 30 MG/5 ML VIAL 12 MG IM (11:35)
--- NOTE | 2019-08-21 11:37 | PM.PNORT ---
Progress Note: A&P Additional Plan Patient's chief complaint vomiting. Fullness feeling in her stomach she has vomited 3 times yesterday and once this morning. She has not had the 2 [place] dose since the and I discontinued that. She is on Pepcid. She has been taking a Medrol Dosepak for her cough that seems to be improving. She takes 325 mg aspirin daily. That was held today. consideration for enteric-coated aspirin would be reasonable. She is currently on Lovenox for DVT prophylaxis. X-rays of her left knee obtained yesterday demonstrated mild to moderate hypertrophic changes and degenerative changes in all 3 compartments. the radiologist said severe and although it might be severe I do not have evidence to suggest she has [id number] arthritis from these nonweightbearing x-rays. There is no evidence of fracture. On exam today she continues to have moderate parapatellar tenderness. I think there is a trace effusion. There is no redness or warmth and her range of motion was 5-130? today. no instability to varus valgus stress. hip range of motion causes no discomfort. She was not yelling out in pain with manipulation of her knee today like she was yesterday. Zbigniew are offered her a cortisone shot into the left knee in the hopes that this will facilitate her mobilization since we are having her keep her weight off of her right ankle which has the fracture. she indicated to me that her knee was injured with the 2nd fall on discussion today. my impression is that she is aggravated preexisting arthritis there and I do not see evidence for fracture or internal derangement and a cortisone shot might alleviate her symptoms more quickly. I discussed with her the risk of side affects inches allergic reaction and infection from a cortisone shot into a joint. Two like to try a cortisone shot. The left knee was prepped with 2 consecutive ChloraPrep prepping devices and injected with a 3 cc of Celestone Soluspan and 3 cc of 1% lidocaine using a 22 gauge needle. she tolerated this very well and I move her knee through a full range of motion afterwards and she thought 2 tardy felt better. A GI consult as been placed for her feeling of bloating and vomiting. She states she did have a bowel movement yesterday. Subjective Subjective Date/Time Seen: 08/21/19 11:37 Objective Data Vital Signs Vital Signs: Vital Signs - 24 hr 08/20/19 14:00 08/20/19 17:36 08/20/19 17:37 Temperature 36.6 C 36.8 C Pulse Rate 85 92 92 Respiratory Rate 18 18 Blood Pressure 100/60 105/58 L Pulse Oximetry 95 97 08/20/19 22:00 08/21/19 06:00 08/21/19 10:05 Temperature 36.9 C 36.5 C Pulse Rate 84 108 H 100 Respiratory Rate 20 18 Blood Pressure 117/65 118/67 Pulse Oximetry 95 94 Intake/Output Intake/Output: Intake & Output 08/18/19 08/19/19 08/20/19 08/21/19 23:59 23:59 23:59 23:59 Intake Total 1910 2220 1510 440 Output Total 188 432 9863 1100 Balance 1710 1620 -360 -584 Meds/Results Medications: Active Medications Generic Name Dose Route Start Last Admin Trade Name Freq PRN Reason Stop Dose Admin Hydrocodone Bitart/Acetaminophen 2 tab 08/18/19 00:09 08/19/19 00:51 [place] 5-325 Mg PO 2 tab Q4H PRN Administration Pain Rated 7-10 Albuterol 2.5 mg 08/18/19 16:32 08/18/19 19:26 Albuterol Sulf Neb 2.5mg/0.5ml INHALATION 2.5 mg Q6HRT PRN Administration Shortness Of Breath Ascorbic Acid 500 mg 08/18/19 09:00 08/21/19 10:34 Vitamin C PO Not Given DAILY [facility] Aspirin 325 mg 08/18/19 09:00 08/21/19 10:34 Aspirin PO Not Given DAILY [facility] Calcium Carbonate 200 mg 08/20/19 16:56 08/21/19 10:47 Tums PO 200 mg Q8H PRN Administration Indigestion Docusate Sodium 100 mg 08/18/19 09:00 08/21/19 10:35 Colace Capsule PO Not Given BID [facility] Enoxaparin Sodium 40 mg 08/19/19 09:00 08/21/19 10:47 Lovenox SUB-Q 40 mg DAILY TRAVIS Administration Ergocalciferol 50,000 unit 08/07
[2019-08-21 14:00] VITALS: BP 108/59; PULSE 104; RESP 16; TEMP 36.4; O2SAT 90
--- NOTE | 2019-08-21 14:37 | PM.IMPN ---
Progress Note: A&P Assessment and Plan (1) Cough: Code(s): R05 - Cough Status: Resolved Assessment and Plan: Robuttisin ordered, albuterol nebs ordered, add medrol dose pack mild bronchitis (2) Seizures: Code(s): R56.9 - Unspecified convulsions Status: Acute Assessment and Plan: Continue home medications (3) MVP (mitral valve prolapse): Code(s): I34.1 - Nonrheumatic mitral (valve) prolapse Status: Acute Assessment and Plan: Continue home medicatins (4) Closed right fibular fracture: Qualifiers: Encounter type: initial encounter Fibula location: distal Fracture morphology: unspecified fracture morphology Qualified Code(s): S82.831A - Other fracture of upper and lower end of right fibula, initial encounter for closed fracture Code(s): S82.401A - Unspecified fracture of shaft of right fibula, initial encounter for closed fracture Status: Acute Assessment and Plan: Seen by orthopedics, PT/ OT to continue, due to increasing ankle pain, fracture, splint in place. Pt wants rehab placement. Awaiting placement. (5) Vomiting: Code(s): R11.10 - Vomiting, unspecified Status: Acute Assessment and Plan: KUB is Normal, ? constipation related pt is less mobile presently. PT want to see GI MD. pt had pepcid, tums and zofran IV for vomiting, pt has vomited X3 times Subjective Date/time seen: 08/21/19 14:37 Interval history: 69 year old female fell out of her bed, her left ankle folded over and she fell straight down. pt was discharged home after having negative x-rays and a CT from [place]. Pt had having continued ankle pain, pt had X-ray imaging does show a right distal fibular oblique fracture. Pt seen by orthopedics. Splint in place. Pt has history of ,mvp , seizures, both are stable. Pt still having bad cough today, other symptoms apart from ankle pain. Cxr shows hyperinflation of lungs. continue albuterol treatments, pt doing well with physical theraphy wanting to go to rehab placement. Pt cough is better, pt main complaint is abdominal bloating and vomiting want to see GI. Review of Systems Review of Systems: All systems reviewed & are unremarkable except as noted in HPI and below Respiratory: Respiratory: Reports cough Gastrointestinal: Gastrointestinal: Reports bloating, Reports constipation and Reports vomiting Exam Const: General: cooperative and other (morbidly obese ); No in distress Chest: Chest palpation & inspection: normal inspection of the chest Resp: Effort & Inspection: normal respiratory effort and no respiratory distress Auscultation: wheezes expiratory wheezes Cardio: Jugular venous distension: no JVD Rate: regular rate Rhythm: regular rhythm Heart sounds: S1 normal heart sound present and S2 normal heart sound present GI: Inspection: distended Auscultation: normal bowel sounds : General: Yes no CVA tenderness Skin: General skin exam: normal color and dry skin Neuro: General: oriented to person Cranial nerves: Yes CN's II-XII intact bilaterally and Yes Equal, round and reactive pupils present Cognition (Neuro): normal cognition Speech: normal speech Motor exam (neuro): 5/5 motor strength present throughout Extrem: General: other (R leg in splint ) Psych: Appearance: grossly normal Mental Status: mental status grossly normal Objective Data Vital Signs Vital Signs: Vital Signs - 24 hr 08/20/19 17:36 08/20/19 17:37 08/20/19 22:00 Temperature 36.8 C 36.9 C Pulse Rate 92 92 84 Respiratory Rate 18 20 Blood Pressure 105/58 L 117/65 Pulse Oximetry 97 95 08/21/19 06:00 08/21/19 10:05 08/21/19 14:00 Temperature 36.5 C 36.4 C Pulse Rate 108 H 100 104 H Respiratory Rate 18 16 Blood Pressure 118/67 108/59 L Pulse Oximetry 94 90 Intake/Output Intake/Output: Intake & Output 08/18/19 08/19/19 08/20/19 08/21/19 23:59 23:59 23:59 23:59 Intake Total 1909 2219
[2019-08-21 16:55] VITALS: PULSE 112
[2019-08-21] MEDS: ACETAMINOPHEN/ASPIRIN/CAFFEINE 250-250-65 MG TABLET 1 TABLET PO (18:49)
[2019-08-21] MEDS: PHENYTOIN SODIUM 100 MG CAP 200 MG PO (20:48)
[2019-08-21] MEDS: MELATONIN 3 MG TABLET PO (20:48)
[2019-08-21] MEDS: FAMOTIDINE 20 MG TABLET PO (20:48)
[2019-08-21] MEDS: KETOROLAC 15 MG/ML VIAL (*BKC) IV PUSH (21:41)
[2019-08-21 22:00] VITALS: BP 115/62; PULSE 99; RESP 18; TEMP 36.7; O2SAT 90
[2019-08-22] MEDS: methylPREDNISolone (MEDROL) DOSEPACK 4 MG TABLETS PO ×4 (05:54→20:48)
[2019-08-22 06:00] VITALS: BP 109/60; PULSE 82; RESP 16; TEMP 36.8; O2SAT 96
[2019-08-22 06:13] LABS: Hematocrit 40.7 % (37.0-47.0); Hemoglobin 13.3 g/dL (12.0-15.0); Mean Corpuscular HGB Conc 32.7 g/dl (32-36); Mean Corpuscular Hemoglobin 32.6 pg (26-34); Mean Corpuscular Volume 99.8 fl (80-100); Mean Platelet Volume 10.4 fl (7.4-10.4); Platelet Count Result 339 k/mm3 (150-375); Red Blood Count 4.08 M/mm3 (4.2-5.4); Red Cell Distribution Width 13.6 % (11.5-14.5)
[2019-08-22 06:24] LABS: Blood Urea Nitrogen 23 mg/dL (7-17); Calcium 8.5 mg/dL (8.4-10.2); Carbon Dioxide 22 mmol/L (22-30); Chloride 101 mmol/L (98-107); Estimated CRCL calculation 68 ml/min; Estimated Glomerular Filt Rate > 60; Glucose 117 mg/dL (65-105); Sodium 137 mmol/L (137-145)
[2019-08-22] MEDS: ASPIRIN 325 MG TABLET PO (09:16)
[2019-08-22] MEDS: ENOXAPARIN 40 MG/0.4 ML SYRINGE SUB-Q (09:16)
[2019-08-22] MEDS: ASCORBIC ACID 500 MG TABLET PO (09:17)
[2019-08-22] MEDS: OMEGA 3 POLYUNSAT FATTY ACIDS 1 GM CAP PO ×3 (09:17→17:33)
[2019-08-22] MEDS: DOCUSATE SODIUM 100 MG CAPSULE PO ×2 (09:17→17:32)
[2019-08-22] MEDS: CHOLECALCIFEROL 1,000 UNIT TABLET 1000 UNITS PO (09:17)
[2019-08-22] MEDS: FAMOTIDINE 20 MG TABLET PO (09:17)
[2019-08-22] MEDS: THIAMINE HCL 100 MG TABLET PO (09:18)
[2019-08-22] MEDS: PRIMIDONE 250 MG TABLET PO ×3 (09:18→17:32)
[2019-08-22 09:19] VITALS: PULSE 82
[2019-08-22] MEDS: PROPRANOLOL HCL 20 MG TABLET 80 MG PO ×2 (09:19→17:31)
[2019-08-22] MEDS: VITAMIN E 400 UNIT CAPSULE PO (09:20)
[2019-08-22] MEDS: CALCIUM CARBONATE (TUMS) 500 MG (200 MG ELEMENTAL) PO ×2 (09:40→17:38)
[2019-08-22] MEDS: ONDANSETRON INJ 4 MG/2 ML VIAL IV PUSH ×2 (11:31→19:56)
--- NOTE | 2019-08-22 11:43 | WPDGIPROGNO ---
Progress Note: A&P Additional Plan GI check LFT's Stop Pepcid Protonix BID Reglan 10 achs [facility] [phone] #[id number] Subjective Date/time seen: 08/22/19 11:43 Objective Data Vital Signs Vital Signs: Vital Signs - 24 hr 08/21/19 14:00 08/21/19 16:55 08/21/19 22:00 Temperature 36.4 C 36.7 C Pulse Rate 104 H 112 H 99 Respiratory Rate 16 18 Blood Pressure 108/59 L 115/62 Pulse Oximetry 90 90 08/22/19 06:00 08/22/19 09:19 Temperature 36.8 C Pulse Rate 82 82 Respiratory Rate 16 Blood Pressure 109/60 Pulse Oximetry 96 Intake/Output Intake/Output: Intake & Output 08/19/19 08/20/19 08/21/19 08/22/19 23:59 23:59 23:59 23:59 Intake Total 2220 1510 680 280 Output Total 600 2300 1700 100 Balance 1620 -790 -1020 180 Meds/Results Medications: Active Medications Generic Name Dose Route Start Last Admin Trade Name Freq PRN Reason Stop Dose Admin Acetaminophen/Aspirin/Caffeine 1 tablet 08/21/19 18:39 08/21/19 18:49 Pain Reliever Plus Tablet PO 1 tablet Q6H PRN Administration Pain Rated 1-3 Albuterol 2.5 mg 08/18/19 16:32 08/18/19 19:26 Albuterol Sulf Neb 2.5mg/0.5ml INHALATION 2.5 mg Q6HRT PRN Administration Shortness Of Breath Ascorbic Acid 500 mg 08/18/19 09:00 08/22/19 09:17 Vitamin C PO 500 mg DAILY [facility] Administration Aspirin 325 mg 08/18/19 09:00 08/22/19 09:16 Aspirin PO 325 mg DAILY [facility] Administration Calcium Carbonate 200 mg 08/20/19 16:56 08/22/19 09:40 Tums PO 200 mg Q8H PRN Administration Indigestion Docusate Sodium 100 mg 08/18/19 09:00 08/22/19 09:17 Colace Capsule PO 100 mg BID [facility] Administration Enoxaparin Sodium 40 mg 08/19/19 09:00 08/22/19 09:16 Lovenox SUB-Q 40 mg DAILY [facility] Administration Ergocalciferol 50,000 unit 08/19/19 09:00 08/19/19 09:48 Drisdol PO 50,000 unit WEEKLY [facility] Administration Famotidine 20 mg 08/20/19 17:00 08/22/19 09:17 Pepcid PO 20 mg Q12HR [facility] Administration Fish Oil 1 gm 08/18/19 09:00 08/22/19 09:17 Lovaza PO 1 gm TID [facility] Administration Guaifenesin 200 mg 08/18/19 18:50 08/19/19 20:57 Guaifenesin Liq PO 200 mg Q4H PRN Administration Cough Melatonin 3 mg 08/18/19 21:00 08/21/19 20:48 Melatonin PO 3 mg HS [facility] Administration Methylprednisolone 4 mg 08/20/19 06:30 08/22/19 05:54 Medrol Dosepak PO 08/25/19 07:29 4 mg 0630,1200,1700,2100 [facility] Administration Taper Metoclopramide HCl 10 mg 08/22/19 16:30 Reglan PO ACHS [facility] Ondansetron HCl 4 mg 08/20/19 21:54 08/22/19 11:31 Zofran Inj IV PUSH 4 mg Q4H PRN Administration Nausea And Vomiting Pantoprazole Sodium 40 mg 08/22/19 21:00 Protonix PO Q12HR [facility] Phenytoin Sodium 200 mg 08/18/19 21:00 08/21/19 20:48 Dilantin Kapseals PO 200 mg HS [facility] Administration Primidone 250 mg 08/18/19 09:00 08/22/19 09:18 Primidone PO 250 mg TID [facility] Administration Propranolol HCl 80 mg 08/18/19 09:00 08/22/19 09:19 Inderal PO 80 mg BID [facility] Administration Thiamine HCl 100 mg 08/18/19 09:00 08/22/19 09:18 Vitamin B-1 PO 100 mg DAILY [facility] Administration Vitamin D 1,000 unit 08/18/19 09:00 08/22/19 09:17 Vitamin D PO 1,000 unit DAILY [facility] Administration Vitamin E 400 unit 08/18/19 09:00 08/22/19 09:20 Vitamin E PO 400 unit DAILY [facility] Administration Radiology Results: ITS Impressions Head CT 08/17/19 22:51 IMPRESSION: 1. No acute intracranial findings. 2. Chronic age related findings. Ankle X-Ray 08/17/19 23:05 IMPRESSION: Acute nondisplaced right distal fibular metaphyseal fracture into syndesmosis; recommend orthopedic consult. Chest X-Ray 08/19/19 07:10 IMPRESSION: Bilateral hyperinflation; suggestion of some volume loss of the left lung compared to the right Knee X-Ray 08/20/19 08:47 IMPRESSION: 1.
[2019-08-22 12:18] LABS: Alanine Aminotransferase 46 U/L (4-35); Albumin Level 4.1 g/dL (3.5-5.1); Alkaline Phosphatase 86 U/L (38-126); Aspartate Amino Transferase 54 U/L (14-36); Bilirubin,Total 0.6 mg/dL (0.2-1.3)
[2019-08-22 14:00] VITALS: BP 111/67; PULSE 88; RESP 20; TEMP 36.8; O2SAT 91
--- NOTE | 2019-08-22 15:48 | PM.IMPN ---
Progress Note: A&P Assessment and Plan (1) Cough: Code(s): R05 - Cough Status: Resolved Assessment and Plan: Robuttisin ordered, albuterol nebs ordered, add medrol dose pack mild bronchitis (2) Seizures: Code(s): R56.9 - Unspecified convulsions Status: Acute Assessment and Plan: Continue home medications (3) MVP (mitral valve prolapse): Code(s): I34.1 - Nonrheumatic mitral (valve) prolapse Status: Acute Assessment and Plan: Continue home medicatins (4) Closed right fibular fracture: Qualifiers: Encounter type: initial encounter Fibula location: distal Fracture morphology: unspecified fracture morphology Qualified Code(s): S82.831A - Other fracture of upper and lower end of right fibula, initial encounter for closed fracture Code(s): S82.401A - Unspecified fracture of shaft of right fibula, initial encounter for closed fracture Status: Acute Assessment and Plan: Seen by orthopedics, PT/ OT to continue, due to increasing ankle pain, fracture, splint in place. Pt wants rehab placement. Awaiting placement. (5) Vomiting: Code(s): R11.10 - Vomiting, unspecified Status: Acute Assessment and Plan: KUB is Normal, ? constipation related pt is less mobile presently. PT want to see GI MD. pt had pepcid, tums and zofran IV for vomiting, pt has vomited X3 times 69 year old female fell out of her bed, her left ankle folded over and she fell straight down. pt was discharged home after having negative x-rays and a CT from [place]. Pt had having continued ankle pain, pt had X-ray imaging does show a right distal fibular oblique fracture. Pt seen by orthopedics. Splint in place. Pt has history of ,mvp , seizures, both are stable. Pt still having bad cough today, other symptoms apart from ankle pain. Cxr shows hyperinflation of lungs. continue albuterol treatments, pt doing well with physical theraphy wanting to go to rehab placement. Pt cough is better, on 08/20 patient started to complain of epigastric pain bloating KUB was done which essentially normal, she had BM on 08/20, patient is concerned stool sometime ago the patient has a pancreatic cyst, patient is seen by GI stop the Pepcid started a Protonix and Reglan and further recommendations are pending Subjective Date/time seen: 08/22/19 15:48 Interval history: 69 year old female fell out of her bed, her left ankle folded over and she fell straight down. pt was discharged home after having negative x-rays and a CT from [place]. Pt had having continued ankle pain, pt had X-ray imaging does show a right distal fibular oblique fracture. Pt seen by orthopedics. Splint in place. Pt has history of ,mvp , seizures, both are stable. Pt still having bad cough today, other symptoms apart from ankle pain. Cxr shows hyperinflation of lungs. continue albuterol treatments, pt doing well with physical theraphy wanting to go to rehab placement. Pt cough is better, on 08/20 patient started to complain of epigastric pain bloating KUB was done which essentially normal, she had BM on 08/20, patient is concerned stool sometime ago the patient has a pancreatic cyst, patient is seen by GI stop the Pepcid started a Protonix and Reglan and further recommendations are pending Review of Systems Review of Systems: All systems reviewed & are unremarkable except as noted in HPI and below Respiratory: Respiratory: Reports cough Gastrointestinal: Gastrointestinal: Reports bloating, Reports constipation and Reports vomiting Exam Narrative: Exam Narrative: Moderately obese Const: General: comfortable and no acute distress HENMT: General nose exam: Normal nares present Mouth: Yes moist mucous membranes Eyes: General: appearance normal, both eyes and all related structures Sclera: sclerae normal Neck: Neck: supple Resp: Effort & Inspection: normal respiratory effort Auscultation: clear to auscultation bilater
[2019-08-22] MEDS: METOCLOPRAMIDE HCL 10 MG TABLET PO ×2 (16:12→20:48)
[2019-08-22 17:31] VITALS: PULSE 88
--- NOTE | 2019-08-22 20:30 | PC.NURSE ---
Offered patient to put her belongings in the closet but patient would rather keep them at the bedside table.
[2019-08-22] MEDS: PHENYTOIN SODIUM 100 MG CAP 200 MG PO (20:48)
[2019-08-22] MEDS: MELATONIN 3 MG TABLET PO (20:48)
[2019-08-22] MEDS: PANTOPRAZOLE 40 MG TABLET PO (20:48)
[2019-08-22 22:00] VITALS: BP 98/56; PULSE 86; RESP 20; TEMP 37.3; O2SAT 90
[2019-08-22] MEDS: PROMETHAZINE HCL 25 MG/ML AMPUL IM (23:15)
[2019-08-22 23:34] VITALS: BP 111/67
[2019-08-23 06:00] VITALS: BP 106/62; PULSE 104; RESP 16; TEMP 37.2; O2SAT 92
--- NOTE | 2019-08-23 06:15 | CONS_ITS ---
DATE OF CONSULTATION: 08/22/2019 HISTORY OF PRESENT ILLNESS: A 69-year-old female with history of mitral valve prolapse, seizures, cholecystectomy, hysterectomy who I am now asked to provide GI evaluation for multiple GI complaints at the request of the hospitalist service. The patient's primary care provider is Dre DE LA GARZA. The patient recently began having epigastric discomfort that is intermittent. It is not associated with oral intake or bowel movements. She has regurgitation, but no nausea and no real emesis. She denies heartburn, trouble swallowing, loss of appetite or weight. The patient has chronic diarrhea for years that is postprandial in nature. The usual sequence of events that she will eat, then immediately have urgency and explosive liquid stool. Since being in the hospital, she is actually having some mild constipation with straining. No hematochezia, melena, fever, jaundice, scleral icterus, dark urine, light stools, itching, hot or cold intolerance, chest pain, shortness of breath at rest, hematuria, dysuria. She does have a productive cough. No visual changes, easy bruising, tingling of skin or tremors. She does have some bone pain in her ankle. The patient was admitted for ankle fracture, treated surgically, and is now postop and recovering. She is due to go to rehab No endocarditis risk factors. ALLERGIES: ALLERGY TO BENADRYL, MORPHINE, AND DIURETICS. SOCIAL HISTORY: Nonsmoker, nondrinker. FAMILY HISTORY: Negative for GI malignancy. PAST MEDICAL HISTORY: Approximately 5 years ago she had endoscopy by Dr. Melquiades Cormier at [facility]. Patient thinks she may have had some ulcer disease on the upper endoscopy and colonoscopy in October and had polyps. MEDICATION LIST: The patient is on aspirin 325, vitamin C, vitamin D, Colace, melatonin, fish oil, Dilantin, primidone, B1, vitamin E, Inderal, Drisdol, Lovenox, Medrol Dosepak, Pepcid. PHYSICAL EXAMINATION: GENERAL: Well-developed, well-nourished female, lying in bed, in no apparent distress. She has no lower extremity edema, jaundice, spider angioma, palmar erythema. HEENT: Skull is normocephalic, atraumatic. Pupils nonicteric. Oropharynx clear. NECK: Supple without thyromegaly. LUNGS: Clear to auscultation. HEART: Rate and rhythm regular. S1, S2 normal. ABDOMEN: Normoactive bowel sounds, soft, nontender, nonrigid, nondistended without hepatosplenomegaly or masses. RECTAL: Deferred. NEURO: Conscious, alert x3. LABS: CBC and electrolytes are unremarkable. No LFTs in chart. KUB is unremarkable. ASSESSMENT AND PLAN: 1. Epigastric discomfort and regurgitation. This is likely multifactorial. She has not been on narcotics lately but has been on a full dose aspirin, steroids, and ketorolac. The ketorolac was just discontinued yesterday. She likely has a component of ulcer disease and may have some motility issues related to medication, ulcer, and low mobility. I do not see that she is on much to decrease her GI motility. At this point, would get rid of any unnecessary medication. Would use care with aspirin, nonsteroidals and anticoagulants as well as narcotics. I have started PPI orally and Reglan 10 mg before meals and at bedtime. We will ask primary service to stop the Pepcid. We will check LFTs. Hopefully, patient will make improvement, go to rehab, and I can follow up as an outpatient. Please call with questions or concerns you may have regarding this. 2. Altered bowel habits. Most likely once she recovers, her bowels will return to baseline. If she continues to have postprandial diarrhea, this is likely pronounced gastrocolic reflex. Could be bile acid diarrhea, though this is less likely. Would not make any changes now, but could consider Levbi
[2019-08-23] MEDS: ONDANSETRON INJ 4 MG/2 ML VIAL IV PUSH ×2 (06:20→18:48)
[2019-08-23 08:19] VITALS: PULSE 100
[2019-08-23] MEDS: PROPRANOLOL HCL 20 MG TABLET 80 MG PO ×2 (08:19→17:06)
[2019-08-23] MEDS: PANTOPRAZOLE 40 MG TABLET PO (08:20)
[2019-08-23] MEDS: PRIMIDONE 250 MG TABLET PO ×3 (08:20→17:08)
[2019-08-23] MEDS: ENOXAPARIN 40 MG/0.4 ML SYRINGE SUB-Q (08:20)
[2019-08-23] MEDS: METOCLOPRAMIDE HCL 10 MG TABLET PO ×3 (08:44→17:05)
[2019-08-23] MEDS: SODIUM CHLORIDE 0.9% IV 1,000 ML 100 ML IV CONT ×2 (10:31→21:03)
--- NOTE | 2019-08-23 11:58 | PM.PNORT ---
Progress Note: A&P Additional Plan HD 6 splint on right ankle intact and comfortable, min pain in ankle. Knee to doing better following injection. pt c/o abd. pain which has been eval. and meds changed. will cont to follow while here Subjective Subjective Date/Time Seen: 08/23/19 11:58 Objective Data Vital Signs Vital Signs: Vital Signs - 24 hr 08/22/19 14:00 08/22/19 17:31 08/22/19 22:00 Temperature 36.8 C 37.3 C Pulse Rate 88 88 86 Respiratory Rate 20 20 Blood Pressure 111/67 98/56 L Pulse Oximetry 91 90 08/22/19 23:34 08/23/19 06:00 08/23/19 08:19 Temperature 37.2 C Pulse Rate 104 H 100 Respiratory Rate 16 Blood Pressure 111/67 106/62 Pulse Oximetry 92 Intake/Output Intake/Output: Intake & Output 08/20/19 08/21/19 08/22/19 08/23/19 23:59 23:59 23:59 23:59 Intake Total 1510 680 760 300 Output Total 2300 1700 1000 2100 Balance -790 -1020 -240 -1800 Meds/Results Medications: Active Medications Generic Name Dose Route Start Last Admin Trade Name Freq PRN Reason Stop Dose Admin Acetaminophen 650 mg 08/22/19 11:59 Tylenol Tablet PO Q4H PRN Mild Pain (1-3) or Fever Albuterol 2.5 mg 08/18/19 16:32 08/18/19 19:26 Albuterol Sulf Neb 2.5mg/0.5ml INHALATION 2.5 mg Q6HRT PRN Administration Shortness Of Breath Ascorbic Acid 500 mg 08/18/19 09:00 08/23/19 08:21 Vitamin C PO Not Given DAILY [facility] Aspirin 325 mg 08/18/19 09:00 08/23/19 08:21 Aspirin PO Not Given DAILY [facility] Calcium Carbonate 200 mg 08/20/19 16:56 08/22/19 17:38 Tums PO 200 mg Q8H PRN Administration Indigestion Docusate Sodium 100 mg 08/18/19 09:00 08/23/19 08:21 Colace Capsule PO Not Given BID [facility] Enoxaparin Sodium 40 mg 08/19/19 09:00 08/23/19 08:20 Lovenox SUB-Q 40 mg DAILY [facility] Administration Ergocalciferol 50,000 unit 08/19/19 09:00 08/19/19 09:48 Drisdol PO 50,000 unit WEEKLY [facility] Administration Fish Oil 1 gm 08/18/19 09:00 08/23/19 08:20 Lovaza PO Not Given TID [facility] Guaifenesin 200 mg 08/18/19 18:50 08/19/19 20:57 Guaifenesin Liq PO 200 mg Q4H PRN Administration Cough Sodium Chloride 1,000 mls @ 100 mls/hr 08/23/19 10:20 08/23/19 10:31 Normal Saline Iv IV CONT 100 mls/hr .Q10H [facility] Administration Melatonin 3 mg 08/18/19 21:00 08/22/19 20:48 Melatonin PO 3 mg HS [facility] Administration Methylprednisolone 4 mg 08/20/19 06:30 08/23/19 05:42 Medrol Dosepak PO 08/25/19 07:29 Not Given 0630,1200,2100 [facility] Taper Metoclopramide HCl 10 mg 08/22/19 16:30 08/23/19 08:44 Reglan PO 10 mg ACHS [facility] Administration Ondansetron HCl 4 mg 08/20/19 21:54 08/23/19 06:20 Zofran Inj IV PUSH 4 mg Q4H PRN Administration Nausea And Vomiting Pantoprazole Sodium 40 mg 08/22/19 21:00 08/23/19 08:20 Protonix PO 40 mg Q12HR [facility] Administration Phenytoin Sodium 200 mg 08/18/19 21:00 08/22/19 20:48 Dilantin Kapseals PO 200 mg HS [facility] Administration Primidone 250 mg 08/18/19 09:00 08/23/19 08:20 Primidone PO 250 mg TID [facility] Administration Propranolol HCl 80 mg 08/18/19 09:00 08/23/19 08:19 Inderal PO 80 mg BID [facility] Administration Thiamine HCl 100 mg 08/18/19 09:00 08/23/19 08:22 Vitamin B-1 PO Not Given DAILY [facility] Vitamin D 1,000 unit 08/18/19 09:00 08/23/19 08:21 Vitamin D PO Not Given DAILY [facility] Vitamin E 400 unit 08/18/19 09:00 08/23/19 08:22 Vitamin E PO Not Given DAILY [facility] Radiology Results: ITS Impressions Head CT 08/17/19 22:51 IMPRESSION: 1. No acute intracranial findings. 2. Chronic age related findings. Ankle X-Ray 08/17/19 23:05 IMPRESSION: Acute nondisplaced right distal fibular metaphyseal fracture into syndesmosis; recommend orthopedic consult. Chest X-Ray 08/19/19 07:10 IMPRESSION: Bilateral hyperinflation; suggestion of some v
--- NOTE | 2019-08-23 11:59 | PCPTNOTE ---
P.T. attempted to see patient 3 times this A.M.. Patient nauseated and vomiting when attempted first and second time. Patient declined third attempt.
[2019-08-23 12:00] LABS: Hematocrit 43.4 % (37.0-47.0); Hemoglobin 14.6 g/dL (12.0-15.0); Mean Corpuscular HGB Conc 33.6 g/dl (32-36); Mean Corpuscular Hemoglobin 32.8 pg (26-34); Mean Corpuscular Volume 97.5 fl (80-100); Mean Platelet Volume 9.7 fl (7.4-10.4); Platelet Count Result 412 k/mm3 (150-375); Red Blood Count 4.45 M/mm3 (4.2-5.4); Red Cell Distribution Width 13.6 % (11.5-14.5); White Blood Count 14.4 K/mm3 (4.5-10.0)
--- NOTE | 2019-08-23 12:14 | WPDGIPROGNO ---
Progress Note: A&P Additional Plan Patient reports ongoing nausea vomiting and epigastric pain. She states she has significant vomiting unable to keep any oral intake down. Often vomiting on an empty stomach. She denies any bleeding. She denies fever. Notes discomfort midepigastric area of the abdomen. Patient reports in 1991 had an endoscopy that showed peptic ulcers. CT colonoscopy last year revealed colon polyps in the spring Currently reports her bowel habits have improved. Yesterday was started on Protonix. And trial of Reglan. Physical exam reveals her to be alert. She is anicteric. Lungs are clear. Heart is without murmur. Abdominal exam soft mid epigastric tenderness noted. No masses evident. Labs reveal WBC 14 K, hemoglobin 14.6 stable Impression 1. Ongoing epigastric pain. Will plan to proceed with an EGD in the morning on Friday. Continue proton pump inhibitor. Also continue Reglan promotility agent. 2. Nausea and vomiting. 3. Altered bowel habits this appears improved. 4. Distant history of colon polyps. Most recent exam in October. Follow-up in several years advised. 5. Recent fibula fracture. Subjective Date/time seen: 08/23/19 12:14 Objective Data Vital Signs Vital Signs: Vital Signs - 24 hr 08/22/19 14:00 08/22/19 17:31 08/22/19 22:00 Temperature 36.8 C 37.3 C Pulse Rate 88 88 86 Respiratory Rate 20 20 Blood Pressure 111/67 98/56 L Pulse Oximetry 91 90 08/22/19 23:34 08/23/19 06:00 08/23/19 08:19 Temperature 37.2 C Pulse Rate 104 H 100 Respiratory Rate 16 Blood Pressure 111/67 106/62 Pulse Oximetry 92 Intake/Output Intake/Output: Intake & Output 08/20/19 08/21/19 08/22/19 08/23/19 23:59 23:59 23:59 23:59 Intake Total 1510 680 760 300 Output Total 2300 1700 1000 2100 Balance -790 1020 240 -1800 Meds/Results Medications: Active Medications Generic Name Dose Route Start Last Admin Trade Name Freq PRN Reason Stop Dose Admin Acetaminophen 650 mg 08/22/19 11:59 Tylenol Tablet PO Q4H PRN Mild Pain (1-3) or Fever Albuterol 2.5 mg 08/18/19 16:32 08/18/19 19:26 Albuterol Sulf Neb 2.5mg/0.5ml INHALATION 2.5 mg Q6HRT PRN Administration Shortness Of Breath Ascorbic Acid 500 mg 08/18/19 09:00 08/23/19 08:21 Vitamin C PO Not Given DAILY [facility] Aspirin 325 mg 08/18/19 09:00 08/23/19 08:21 Aspirin PO Not Given DAILY [facility] Calcium Carbonate 200 mg 08/20/19 16:56 08/22/19 17:38 Tums PO 200 mg Q8H PRN Administration Indigestion Docusate Sodium 100 mg 08/18/19 09:00 08/23/19 08:21 Colace Capsule PO Not Given BID [facility] Enoxaparin Sodium 40 mg 08/19/19 09:00 08/23/19 08:20 Lovenox SUB-Q 40 mg DAILY [facility] Administration Ergocalciferol 50,000 unit 08/19/19 09:00 08/19/19 09:48 Drisdol PO 50,000 unit WEEKLY [facility] Administration Fish Oil 1 gm 08/18/19 09:00 08/23/19 08:20 Lovaza PO Not Given TID [facility] Guaifenesin 200 mg 08/18/19 18:50 08/19/19 20:57 Guaifenesin Liq PO 200 mg Q4H PRN Administration Cough Sodium Chloride 1,000 mls @ 100 mls/hr 08/23/19 10:20 08/23/19 10:31 Normal Saline Iv IV CONT 100 mls/hr .Q10H [facility] Administration Melatonin 3 mg 08/18/19 21:00 08/22/19 20:48 Melatonin PO 3 mg HS [facility] Administration Methylprednisolone 4 mg 08/20/19 06:30 08/23/19 05:42 Medrol Dosepak PO 08/25/19 07:29 Not Given 0630,1200,2100 [facility] Taper Metoclopramide HCl 10 mg 08/22/19 16:30 08/23/19 08:44 Reglan PO 10 mg ACHS [facility] Administration Ondansetron HCl 4 mg 08/20/19 21:54 08/23/19 06:20 Zofran Inj IV PUSH 4 mg Q4H PRN Administration Nausea And Vomiting Pantoprazole Sodium 40 mg 08/22/19 21:00 08/23/19 08:20 Protonix PO 40 mg Q12HR [facility] Administration Phenytoin Sodium 200 mg 08/18/19 21:00 08/22/19 20:48 Dilantin Kapseals PO 200 mg HS [facility] Administration P
[2019-08-23 12:23] LABS: Alanine Aminotransferase 54 U/L (4-35); Albumin Level 4.5 g/dL (3.5-5.1); Alkaline Phosphatase 115 U/L (38-126); Aspartate Amino Transferase 58 U/L (14-36); Bilirubin,Total 0.7 mg/dL (0.2-1.3); Blood Urea Nitrogen 34 mg/dL (7-17); Calcium 9.3 mg/dL (8.4-10.2); Carbon Dioxide > 40 mmol/L (22-30); Chloride 93 mmol/L (98-107); Estimated CRCL calculation 50 ml/min; Estimated Glomerular Filt Rate 50; Glucose 127 mg/dL (65-105); Potassium 3.1 mmol/L (3.4-5.0); Sodium 141 mmol/L (137-145)
[2019-08-23 12:46] LABS: Hepatitis B Surface Antigen Negative (Negative)
[2019-08-23 12:52] LABS: HAV RESULT Negative (Negative); Hepatitis B Core IgM Result Negative (Negative)
[2019-08-23] MEDS: methylPREDNISolone (MEDROL) DOSEPACK 4 MG TABLETS PO (12:58)
[2019-08-23 13:03] LABS: Hepatitis C Virus Antibody Negative (Negative)
[2019-08-23] MEDS: CALCIUM CARBONATE (TUMS) 500 MG (200 MG ELEMENTAL) PO ×2 (13:17→19:08)
[2019-08-23 14:00] VITALS: BP 134/65; PULSE 94; RESP 18; TEMP 36.9; O2SAT 95
--- NOTE | 2019-08-23 15:15 | PM.IMPN ---
Progress Note: A&P Assessment and Plan (1) Cough: Code(s): R05 - Cough Status: Resolved Assessment and Plan: Robuttisin ordered, albuterol nebs ordered, add medrol dose pack mild bronchitis (2) Seizures: Code(s): R56.9 - Unspecified convulsions Status: Acute Assessment and Plan: Continue home medications (3) MVP (mitral valve prolapse): Code(s): I34.1 - Nonrheumatic mitral (valve) prolapse Status: Acute Assessment and Plan: Continue home medicatins (4) Closed right fibular fracture: Qualifiers: Encounter type: initial encounter Fibula location: distal Fracture morphology: unspecified fracture morphology Qualified Code(s): S82.831A - Other fracture of upper and lower end of right fibula, initial encounter for closed fracture Code(s): S82.401A - Unspecified fracture of shaft of right fibula, initial encounter for closed fracture Status: Acute Assessment and Plan: Seen by orthopedics, PT/ OT to continue, due to increasing ankle pain, fracture, splint in place. Pt wants rehab placement. Awaiting placement. Patient excepted for rehab may discharge the patient tomorrow (5) Vomiting: Code(s): R11.10 - Vomiting, unspecified Status: Acute Assessment and Plan: 69 year old female fell out of her bed, her left ankle folded over and she fell straight down. pt was discharged home after having negative x-rays and a CT from [place]. Pt had having continued ankle pain, pt had X-ray imaging does show a right distal fibular oblique fracture. Pt seen by orthopedics. Splint in place. Pt has history of ,mvp , seizures, both are stable. Pt still having bad cough today, other symptoms apart from ankle pain. Cxr shows hyperinflation of lungs. continue albuterol treatments, pt doing well with physical theraphy wanting to go to rehab placement. Pt cough is better, on 08/20 patient started to complain of epigastric pain bloating KUB was done which essentially normal, she had BM on 08/20, patient is concerned sometime ago the patient had a pancreatic cyst, patient was seen by GI stopped the Pepcid started a Protonix and Reglan. Today patient the large vomitus this morning states unable to hold any p.o. patient had a EGD several years ago and showed patient has a peptic ulcer, patient was seen by GI today again recommending patient will benefit from EGD to further evaluate, patient is developing ISELA most likely due to vomiting and dehydration as patient is not able to hold p.o. will start IV will monitor, further recommendation to follow after EGD., left ankle fracture stable, patient been accepted for SNF may discharge the patient tomorrow after the EGD if clinically stable. Subjective Date/time seen: 08/23/19 15:15 Interval history: 69 year old female fell out of her bed, her left ankle folded over and she fell straight down. pt was discharged home after having negative x-rays and a CT from [place]. Pt had having continued ankle pain, pt had X-ray imaging does show a right distal fibular oblique fracture. Pt seen by orthopedics. Splint in place. Pt has history of ,mvp , seizures, both are stable. Pt still having bad cough today, other symptoms apart from ankle pain. Cxr shows hyperinflation of lungs. continue albuterol treatments, pt doing well with physical theraphy wanting to go to rehab placement. Pt cough is better, on 08/20 patient started to complain of epigastric pain bloating KUB was done which essentially normal, she had BM on 08/20, patient is concerned sometime ago the patient had a pancreatic cyst, patient was seen by GI stopped the Pepcid started a Protonix and Reglan. Today patient the large vomitus this morning states unable to hold any p.o. patient had a EGD several years ago and showed patient has a peptic ulcer, patient was seen by GI today again recommending patient will benefit from EGD to further evaluate, patient is developing ISELA most likely
[2019-08-23 17:06] VITALS: PULSE 108
[2019-08-23 22:00] VITALS: BP 119/69; PULSE 107; RESP 16; TEMP 37.6; O2SAT 92
[2019-08-24] VITALS (8 sets, daily range): BP systolic 104–144; BP diastolic 58–93; PULSE 95–106; RESP 16–22; TEMP 36.3–37.2; O2SAT 90–95
[2019-08-24] MEDS: PROMETHAZINE HCL 25 MG/ML AMPUL IM (02:29)
[2019-08-24 06:13] LABS: Alanine Aminotransferase 59 U/L (4-35); Albumin Level 4.1 g/dL (3.5-5.1); Alkaline Phosphatase 95 U/L (38-126); Aspartate Amino Transferase 53 U/L (14-36); Bilirubin,Total 0.8 mg/dL (0.2-1.3); Blood Urea Nitrogen 32 mg/dL (7-17); Calcium 8.4 mg/dL (8.4-10.2); Carbon Dioxide > 40 mmol/L (22-30); Chloride 96 mmol/L (98-107); Estimated CRCL calculation 61 ml/min; Estimated Glomerular Filt Rate > 60; Glucose 119 mg/dL (65-105); Potassium 3.1 mmol/L (3.4-5.0); Sodium 141 mmol/L (137-145)
[2019-08-24] MEDS: SODIUM CHLORIDE 0.9% IV 1,000 ML 100 ML IV CONT (07:21)
[2019-08-24] MEDS: KCL 20 MEQ/SW 100 ML 100 ML 50 MEQ IVPB (08:01)
--- NOTE | 2019-08-24 08:57 | PCPTNOTE ---
Attempted to see patient for PT this date, however patient was being taken out of room for a procedure.
--- NOTE | 2019-08-24 08:59 | PC.NURSE ---
To GI Lab per [facility], IV #[id number] RT FA.
[2019-08-24] MEDS: LACTATED RINGERS 1,000 ML 150 ML IV CONT (09:17)
--- NOTE | 2019-08-24 09:32 | WPDANESEPPF ---
Anes - Initial Pre Proc Eval Procedure: Operation Date: 08/24/19 11:00 Proposed Procedures p Esophagogastroduodenoscopy - Stephen Howard MD Date/Time: 08/24/19 09:32 Surgeon: Macario Sky MD Pre Op Diagnosis: right fibular fracture Patient Data Age: 69 Gender: F Height: 5 ft 7 in Weight: 88.8 kg Last Vital Signs Temp 36.7 C 08/24/19 09:24 Pulse 106 H 08/24/19 09:24 Resp 22 H 08/24/19 09:24 BP 104/69 08/24/19 09:24 Pulse Ox 90 08/24/19 09:24 Allergies Allergy/AdvReac Type Severity Reaction Status Date / Time diphenhydramine Allergy Severe Other Verified 08/24/19 09:14 morphine Allergy Severe Other Verified 08/24/19 09:14 DIURETICS AdvReac Intermediate Other Uncoded 08/24/19 09:14 Home Medications Medication Instructions Recorded Confirmed Type ascorbic acid (vitamin C) [Vitamin 500 mg PO DAILY 08/18/19 08/18/19 History C] aspirin [Tank Aspirin] 325 mg PO DAILY 08/18/19 08/18/19 History cholecalciferol (vitamin D3) 1,000 unit PO DAILY 08/18/19 08/18/19 History [Vitamin D3] docusate sodium 100 mg PO BID 08/18/19 08/18/19 History melatonin 3 mg PO HS 08/18/19 08/18/19 History omega [id number]-[id number] oil [Fish Oil] 1 cap PO TID 08/18/19 08/18/19 History phenytoin sodium extended 100 mg PO BID 08/18/19 08/18/19 History primidone 250 mg PO TID 08/18/19 08/18/19 History propranolol 80 mg PO BID 08/18/19 08/18/19 History thiamine HCl (vitamin B1) 100 mg PO DAILY 08/18/19 08/18/19 History vitamin E 400 unit PO DAILY 08/18/19 08/18/19 History Laboratory Tests 08/23/19 08/23/19 08/23/19 11:43 11:43 11:43 WBC 14.4 K/mm3 H K/mm3 (4.5-10.0) RBC 4.45 M/mm3 M/mm3 (4.2-5.4) Hgb 14.6 g/dL g/dL (12.0-15.0) Hct 43.4 % % (37.0-47.0) MCV 97.5 fl fl (80-100) MCH 32.8 pg pg (26-34) MCHC 33.6 g/dl g/dl (32-36) RDW 13.6 % % (11.5-14.5) Plt Count 412 k/mm3 H k/mm3 (150-375) MPV 9.7 fl fl (7.4-10.4) Sodium 141 mmol/L mmol/L (137-145) Potassium 3.1 mmol/L L mmol/L (3.4-5.0) Chloride 93 mmol/L L mmol/L (98-107) Carbon Dioxide > 40 mmol/L H mmol/L (22-30) BUN 34 mg/dL H D mg/dL (7-17) Creatinine 1.10 mg/dL H mg/dL (0.7-1.0) Estim Creat Clear Calc 50 ml/min ml/min Estimated GFR 50 L (59 - ) Glucose 127 mg/dL H mg/dL (65-105) Calcium 9.3 mg/dL mg/dL (8.4-10.2) Total Bilirubin 0.7 mg/dL mg/dL (0.2-1.3) AST 58 U/L H U/L (14-36) ALT 54 U/L H U/L (4-35) Alkaline Phosphatase 115 U/L U/L (38-126) Total Protein 8.0 g/dL g/dL (6.3-8.2) Albumin 4.5 g/dL g/dL (3.5-5.1) Hepatitis A IgM Ab Negative (Negative) Hep Bs Antigen Negative (Negative) Hep B Core IgM Ab Negative (Negative) Hepatitis C Ab Screen Negative (Negative) 08/24/19 05:46 WBC RBC Hgb Hct MCV MCH MCHC RDW Plt Count MPV Sodium 141 mmol/L mmol/L (137-145) Potassium 3.1 mmol/L L mmol/L (3.4-5.0) Chloride 96 mmol/L L mmol/L (98-107) Carbon Dioxide > 40 mmol/L H mmol/L (22-30) BUN 32 mg/dL H mg/dL (7-17) Creatinine 0.90 mg/dL mg/dL (0.7-1.0) Estim Creat Clear Calc 61 ml/min ml/min Estimated GFR > 60 (59 - ) Glucose 119 mg/dL H mg/dL (65-105) Calcium 8.4 mg/dL mg/dL (8.4-10.2) Total Bilirubin 0.8 mg/dL mg/dL (0.2-1.3) AST 53 U/L H U/L (14-36) ALT 59 U/L H U/L (4-35) Alkaline Phosphatase 95 U/L U/L (38-126) Total Protein 8.0 g/dL g/dL (6.3-8.2) Albumin 4.1 g/dL g/dL (3.5-5.1) Hepatitis A IgM Ab Hep Bs Antigen Hep B Core IgM Ab Hepatitis C Ab Screen Patient hx anesthesia problems: none Family hx anesthe
--- NOTE | 2019-08-24 11:16 | SUR.PHASEII ---
1110 NGT 18FR PLACED RIGHT NARES PER ORDER DR. GUTIERREZ, TAPED AT 58CM AT TIP OF NOSE, GREEN LIQ. RETURNED VIA INTER. SUCTION
--- NOTE | 2019-08-24 11:38 | SUR.PHASEII ---
RADIOLOGY HERE FOR PORTABLE XRAY FOR NGT PLACEMENT
[2019-08-24] MEDS: METOCLOPRAMIDE HCL INJ 10 MG/2 ML VIAL IV PUSH ×2 (12:17→18:05)
[2019-08-24] MEDS: PANTOPRAZOLE SODIUM IV 40 MG VIAL IV PUSH ×2 (12:17→20:26)
[2019-08-24] MEDS: ENOXAPARIN 40 MG/0.4 ML SYRINGE SUB-Q (12:18)
--- NOTE | 2019-08-24 12:34 | PC.NURSE ---
Returned from GI Lab.
--- NOTE | 2019-08-24 16:13 | PM.IMPN ---
Progress Note: A&P Assessment and Plan (1) Reflux esophagitis: Code(s): K21.0 - Gastro-esophageal reflux disease with esophagitis Status: Acute Assessment and Plan: EGD showed reflux esophagitis, gastric retention and bile acid reflux. Continue IV Protonix. Continue Reglan. Limit oral meds until able to eat. (2) Vomiting: Qualifiers: Nausea presence: with nausea Vomiting type: bilious vomiting Qualified Code(s): R11.14 - Bilious vomiting Code(s): R11.10 - Vomiting, unspecified Status: Acute Assessment and Plan: EGD as mentioned above. Patient retained fluid noted in the stomach. NG tube was placed and secured. Currently on Reglan. Will start with ice chips. (3) Closed right fibular fracture: Qualifiers: Encounter type: initial encounter Fibula location: distal Fracture morphology: unspecified fracture morphology Qualified Code(s): S82.831A - Other fracture of upper and lower end of right fibula, initial encounter for closed fracture Code(s): S82.401A - Unspecified fracture of shaft of right fibula, initial encounter for closed fracture Status: Acute Assessment and Plan: Seen by orthopedics and soft cast placed. Continue PT/OT. Patient has been accepted to rehab. (4) Elevated LFTs: Code(s): R94.5 - Abnormal results of liver function studies Status: Acute Assessment and Plan: Etiology unclear. Viral related? Medication? Hepatitis panel negative. Will check liver US and lab work. (5) Cough: Code(s): R05 - Cough Status: Resolved Assessment and Plan: Patient with persistent cough. CXR on 08/18 showing bilateral hyperinflation with some volume loss on the left. Being treated symptomatically. Robitussin prn, albuterol nebs prn and scheduled Medrol dose pack ordered. Symptoms appear to be improving. Continue to monitor. (6) Seizures: Code(s): R56.9 - Unspecified convulsions Status: Acute Assessment and Plan: Stable. Continue Dilantin. Subjective Date/time seen: 08/24/19 16:13 Interval history: 69yo female here for right ankle pain after a fall and found to have right distal fibular fracture. Assuming care. Chart reviewed. Pt seen by orthopedics and splint placed. Also had left knee steroid injection with benefit. Patient with persistent cough x weeks productive of clear sputum. She denies SOB or CP. No further epigastric pain. No nausea post EGD today. Denies any significant knee or ankle pain. Exam Narrative: Exam Narrative: Gen - ARNOLD lying almost flat in bed HEENT -NG tube secured. Chest -lungs are clear to auscultation bilaterally. Normal respiratory rate. CV - RRR S1/S2 Abd -soft. Nontender. Nondistended. Positive bowel sounds. Ext -right lower extremity in the soft cast. No pitting lower extremity edema. Psych - Nml mood and affect Skin - Warm and dry Objective Data Vital Signs Vital Signs: Vital Signs - 24 hr 08/23/19 17:06 08/23/19 22:00 08/24/19 06:00 Temperature 99.7 F H 99 F Pulse Rate 108 H 107 H 98 Respiratory Rate 16 16 Blood Pressure 119/69 115/71 Pulse Oximetry 92 90 08/24/19 09:24 08/24/19 10:47 08/24/19 10:57 Temperature 98.0 F Pulse Rate 106 H 95 95 Respiratory Rate 22 H 20 20 Blood Pressure 104/69 125/75 120/67 Pulse Oximetry 90 94 95 08/24/19 11:07 08/24/19 12:00 08/24/19 14:00 Temperature 97.9 F 97.4 F L Pulse Rate 103 H 99 99 Respiratory Rate 20 16 16 Blood Pressure 138/93 H 117/63 136/73 Pulse Oximetry 95 92 92 Intake/Output Intake/Output: Intake & Output 08/21/19 08/22/19 08/23/19 08/24/19 23:59 23:59 23:59 23:59 Intake Total 789 158 0707 1200 Output Total 1700 1000 2350 750 Balance -1020 -240 -1050 450 Meds/Results Medications: Active Medications Generic Name Dose Route Start Last Admin Trade Name Freq PRN Reason Stop Dose Admin Acetaminophen 650
--- NOTE | 2019-08-24 17:33 | PC.NURSE ---
Addendum entered by Misty Pina RN 08/24/19 17:34: Non-distended bladder. Will monitor urine output. Original Note: Patient has voided 200cc since 0700. Bladder scan showed estimated 74cc. Patient is in no discomfort, non-0
[2019-08-25] MEDS: METOCLOPRAMIDE HCL INJ 10 MG/2 ML VIAL IV PUSH ×4 (00:13→17:17)
[2019-08-25] MEDS: SODIUM CHLORIDE 0.9% IV 1,000 ML 100 ML IV CONT ×3 (01:56→21:54)
[2019-08-25 06:00] VITALS: BP 116/68; PULSE 109; RESP 16; TEMP 37; O2SAT 92
[2019-08-25 06:01] LABS: Basophils Percent Auto 0.4 % (0.2-1.2); Eosinophils Percent Auto 0.2 % (0-4.4); Hemoglobin 11.8 g/dL (12.0-15.0); Lymphocytes Percent Auto 18.8 % (18.3-44.2); Mean Corpuscular HGB Conc 32.8 g/dl (32-36); Mean Corpuscular Hemoglobin 32.6 pg (26-34); Mean Corpuscular Volume 99.4 fl (80-100); Mean Platelet Volume 10.2 fl (7.4-10.4); Monocytes Absolute Auto 1.3 K/mm3 (0.1-0.6); Monocytes Percent Auto 13.3 % (2.6-8.5); Neutrophils Absolute Auto 6.3 K/mm3 (1.3-6.7); Neutrophils Percent Auto 66.3 % (45.5-73.1); Platelet Count Result 245 k/mm3 (150-375); Red Blood Count 3.62 M/mm3 (4.2-5.4); Red Cell Distribution Width 13.3 % (11.5-14.5); White Blood Count 9.6 K/mm3 (4.5-10.0)
[2019-08-25 06:22] LABS: Alanine Aminotransferase 43 U/L (4-35); Albumin Level 3.4 g/dL (3.5-5.1); Alkaline Phosphatase 79 U/L (38-126); Aspartate Amino Transferase 38 U/L (14-36); Bilirubin,Total 0.8 mg/dL (0.2-1.3); Blood Urea Nitrogen 23 mg/dL (7-17); Carbon Dioxide 32 mmol/L (22-30); Chloride 103 mmol/L (98-107); Estimated CRCL calculation 77 ml/min; Estimated Glomerular Filt Rate > 60; Glucose 99 mg/dL (65-105); Potassium 3.4 mmol/L (3.4-5.0); Sodium 140 mmol/L (137-145)
[2019-08-25 06:45] LABS: CRP 6.5 mg/dL (<1.0)
[2019-08-25 06:48] LABS: Iron 79 ug/dL (37-170)
[2019-08-25 06:57] LABS: Percent Iron Saturation 41 % (20-50)
--- NOTE | 2019-08-25 08:02 | WPDANESPN ---
Anes - Prog Note Post-Op Date/Time: 08/25/19 08:02 Cardiovascular status: normal Respiratory status: normal Airway patency: baseline Mental status: baseline Post-Op hydration status: normal Vital Signs: Last Vital Signs Temp 37.0 C 08/25/19 06:00 Pulse 109 H 08/25/19 06:00 Resp 16 08/25/19 06:00 BP 116/68 08/25/19 06:00 Pulse Ox 92 08/25/19 06:00 I/O: Intake & Output 08/24/19 08/25/19 08/25/19 23:59 07:59 15:59 Intake Total 128 1112 Output Total 550 650 Balance -422 462 Laboratory Tests 08/25/19 05:31 08/25/19 05:31 08/25/19 08/25/19 08/25/19 05:31 05:31 05:31 WBC RBC Hgb Hct MCV MCH MCHC RDW Plt Count MPV Immature Gran % (Auto) Neut % (Auto) Lymph % (Auto) [place] % (Auto) Eos % (Auto) Baso % (Auto) Lymph # (Auto) [place] # (Auto) Eos # (Auto) Baso # (Auto) Abs Immat Gran (auto) Absolute Neuts (auto) Absolute Nucleated RBC Nucleated RBC % Sodium Potassium Chloride Carbon Dioxide BUN Creatinine Estim Creat Clear Calc Estimated GFR Glucose Calcium Iron 79 TIBC 194 L % Saturation 41 Ferritin 145.00 Total Bilirubin AST ALT Alkaline Phosphatase C-Reactive Protein Total Protein Albumin Ceruloplasmin Pending ERENDIRA Screen Pending 08/25/19 08/25/19 05:31 05:31 WBC 9.6 RBC 3.62 L Hgb 11.8 L Hct 36.0 L MCV 99.4 MCH 32.6 MCHC 32.8 RDW 13.3 Plt Count 245 MPV 10.2 Immature Gran % (Auto) 1.0 H Neut % (Auto) 66.3 Lymph % (Auto) 18.8 [place] % (Auto) 13.3 H Eos % (Auto) 0.2 Baso % (Auto) 0.4 Lymph # (Auto) 1.80 [place] # (Auto) 1.3 H Eos # (Auto) 0.0 Baso # (Auto) 0.0 Abs Immat Gran (auto) 0.10 H Absolute Neuts (auto) 6.3 Absolute Nucleated RBC 0.0 Nucleated RBC % 0.0 Sodium 140 Potassium 3.4 Chloride 103 Carbon Dioxide 32 H BUN 23 H Creatinine 0.70 Estim Creat Clear Calc 77 Estimated GFR > 60 Glucose 99 Calcium 8.0 L Iron TIBC % Saturation Ferritin Total Bilirubin 0.8 AST 38 H ALT 43 H Alkaline Phosphatase 79 C-Reactive Protein 6.5 H Total Protein 6.0 L Albumin 3.4 L Ceruloplasmin ERENDIRA Screen Post-procedural complaints: none Patient Feedback: Patient satisfied with anesthetic care.
--- NOTE | 2019-08-25 08:10 | PCOTNOTE ---
Attempted to see patient this am, however patient off floor at this time.
--- NOTE | 2019-08-25 08:13 | PCPTNOTE ---
Attempted Therapy Session. unable to see due to Pt being out of room for a CT scan.
[2019-08-25] MEDS: ENOXAPARIN 40 MG/0.4 ML SYRINGE SUB-Q (09:56)
[2019-08-25] MEDS: PANTOPRAZOLE SODIUM IV 40 MG VIAL IV PUSH ×2 (09:57→21:49)
--- NOTE | 2019-08-25 10:14 | WPDGIPROGNO ---
Progress Note: A&P Additional Plan Patient denies any more nausea vomiting. NG tube is in place. Large amount of NG tube return noted. Bilious in nature. Physical exam patient is alert. Abdomen is soft. Bowel sounds present no organomegaly. No localized tenderness. Impression 1. Retained gastric contents. No obstruction identified by endoscopy. Some concern over dilatation of the duodenum was identified. This could represent possible small-bowel obstruction versus gastroparesis. Last bowel movement reported was a day and a half to 2 days ago. Plan is to obtain small-bowel follow-through to exclude obstruction. If this is negative then clamp NG tube in gradually advance diet. Reglan will be continued for now. Subjective Date/time seen: 08/25/19 10:14 Objective Data Vital Signs Vital Signs: Vital Signs - 24 hr 08/24/19 10:47 08/24/19 10:57 08/24/19 11:07 Temperature Pulse Rate 95 95 103 H Respiratory Rate 20 20 20 Blood Pressure 125/75 120/67 138/93 H Pulse Oximetry 94 95 95 08/24/19 12:00 08/24/19 14:00 08/24/19 22:00 Temperature 36.6 C 36.3 C L 37.2 C Pulse Rate 99 99 100 Respiratory Rate 16 16 16 Blood Pressure 117/63 136/73 144/58 H Pulse Oximetry 92 92 94 08/25/19 06:00 Temperature 37.0 C Pulse Rate 109 H Respiratory Rate 16 Blood Pressure 116/68 Pulse Oximetry 92 Intake/Output Intake/Output: Intake & Output 08/22/19 08/23/19 08/24/19 08/25/19 23:59 23:59 23:59 23:59 Intake Total 760 1300 1328 1112 Output Total 1000 2350 1300 650 Balance -240 -1050 28 462 Meds/Results Medications: Active Medications Generic Name Dose Route Start Last Admin Trade Name Freq PRN Reason Stop Dose Admin Acetaminophen 650 mg 08/22/19 11:59 Tylenol Tablet PO Q4H PRN Mild Pain (1-3) or Fever Albuterol 2.5 mg 08/18/19 16:32 08/18/19 19:26 Albuterol Sulf Neb 2.5mg/0.5ml INHALATION 2.5 mg Q6HRT PRN Administration Shortness Of Breath Ascorbic Acid 500 mg 08/18/19 09:00 08/24/19 16:23 Vitamin C PO Not Given DAILY [facility] Aspirin 325 mg 08/18/19 09:00 08/24/19 16:23 Aspirin PO Not Given DAILY [facility] Calcium Carbonate 200 mg 08/23/19 18:44 08/23/19 19:08 Tums PO 200 mg Q4H PRN Administration Indigestion Docusate Sodium 100 mg 08/18/19 09:00 08/24/19 16:27 Colace Capsule PO Not Given BID [facility] Enoxaparin Sodium 40 mg 08/19/19 09:00 08/25/19 09:56 Lovenox SUB-Q 40 mg DAILY [facility] Administration Ergocalciferol 50,000 unit 08/19/19 09:00 08/19/19 09:48 Drisdol PO 50,000 unit WEEKLY [facility] Administration Fish Oil 1 gm 08/18/19 09:00 08/24/19 16:27 Lovaza PO Not Given TID [facility] Guaifenesin 200 mg 08/18/19 18:50 08/19/19 20:57 Guaifenesin Liq PO 200 mg Q4H PRN Administration Cough Sodium Chloride 1,000 mls @ 100 mls/hr 08/23/19 10:20 08/25/19 01:56 Normal Saline Iv IV CONT 100 mls/hr .Q10H [facility] Administration Melatonin 3 mg 08/18/19 21:00 08/23/19 21:47 Melatonin PO Not Given HS [facility] Metoclopramide HCl 10 mg 08/24/19 12:00 08/25/19 06:08 Reglan IV PUSH 10 mg Q6HR [facility] Administration Ondansetron HCl 4 mg 08/20/19 21:54 08/23/19 18:48 Zofran Inj IV PUSH 4 mg Q4H PRN Administration Nausea And Vomiting Pantoprazole Sodium 40 mg 08/24/19 10:40 08/25/19 09:57 Protonix Iv IV PUSH 40 mg Q12HR [facility] Administration Phenytoin Sodium 200 mg 08/18/19 21:00 08/24/19 20:26 Dilantin Kapseals PO Not Given HS [facility] Primidone 250 mg 08/18/19 09:00 08/24/19 16:27 Primidone PO Not Given TID [facility] Propranolol HCl 80 mg 08/18/19 09:00 08/24/19 16:27 Inderal PO Not Given BID [facility] Thiamine HCl 100 mg 08/18/19 09:00 08/24/19 16:23 Vitamin B-1 PO Not Given DAILY [facility] Vitamin D 1,000 unit 08/18/19 09:00 08/24/19 16:23 Vitamin D PO Not Given DAILY [facility] Vitamin E 400 unit 08/18/19 09:00
[2019-08-25 10:28] VITALS: PULSE 112
[2019-08-25] MEDS: PROPRANOLOL HCL 20 MG TABLET 80 MG PO ×2 (10:28→17:16)
--- NOTE | 2019-08-25 10:51 | PM.IMPN ---
Progress Note: A&P Assessment and Plan (1) Reflux esophagitis: Code(s): K21.0 - Gastro-esophageal reflux disease with esophagitis Status: Acute Assessment and Plan: EGD showed reflux esophagitis, gastric retention and bile acid reflux. Continue IV Protonix. Limit oral meds until able to eat. (2) Vomiting: Qualifiers: Nausea presence: with nausea Vomiting type: bilious vomiting Qualified Code(s): R11.14 - Bilious vomiting Code(s): R11.10 - Vomiting, unspecified Status: Acute Assessment and Plan: EGD as mentioned above. Patient retained fluid noted in the stomach possibly related to extrinsic obstruction. NG tube was placed and secured. CT scan showing a 14cm cystic mass c/w pancreatic cyst, pseudocyst or macrocystic mucinous tumor. No hx of pancreatitis but has been noted in the past. Small bowel series ordered to see if this is impinging on her stomach or bowel that could be resulting in her symptoms. May need to have this drained. (3) Pancreatic cyst: Code(s): K86.2 - Cyst of pancreas Status: Acute Assessment and Plan: As above. (4) Closed right fibular fracture: Qualifiers: Encounter type: initial encounter Fibula location: distal Fracture morphology: unspecified fracture morphology Qualified Code(s): S82.831A - Other fracture of upper and lower end of right fibula, initial encounter for closed fracture Code(s): S82.401A - Unspecified fracture of shaft of right fibula, initial encounter for closed fracture Status: Acute Assessment and Plan: Seen by orthopedics and soft cast placed. Continue PT/OT. Patient has been accepted to rehab. (5) Elevated LFTs: Code(s): R94.5 - Abnormal results of liver function studies Status: Acute Assessment and Plan: Etiology unclear. Viral related? Medication? Hepatitis panel negative. Liver US showing cystic lesion otherwise normal US. LFTs improved. COntineu to monitor. (6) Cough: Code(s): R05 - Cough Status: Resolved Assessment and Plan: CXR on 08/18 showing bilateral hyperinflation with some volume loss on the left. Cough improved. Continue symptomatic treatment with Robitussin prn, albuterol nebs prn and scheduled Medrol dose pack. Continue to monitor. (7) Seizures: Code(s): R56.9 - Unspecified convulsions Status: Acute Assessment and Plan: Stable. Continue Dilantin. Subjective Date/time seen: 08/25/19 10:51 Interval history: 69yo female here for right ankle pain after a fall and found to have right distal fibular fracture. No hx of pancreatitis. She is aware of having a cyst on her pancreas many years ago but it was small. No follow up planned. She slept poorly last night. Complains of abdominal pain in the epigastric region. Exam Narrative: Exam Narrative: Gen - NARD lying flat in bed HEENT -NG tube secured. Chest - CTA bilaterally, nml RR CV - RRR S1/S2 Abd - soft, fullness in the RUQ region with pain to palpation. +BS Ext -right lower extremity in the soft cast. No pitting left lower extremity edema. Psych - Nml mood and affect Skin - Warm and dry Objective Data Vital Signs Vital Signs: Vital Signs - 24 hr 08/24/19 10:57 08/24/19 11:07 08/24/19 12:00 Temperature 97.9 F Pulse Rate 95 103 H 99 Respiratory Rate 20 20 16 Blood Pressure 120/67 138/93 H 117/63 Pulse Oximetry 95 95 92 08/24/19 14:00 08/24/19 22:00 08/25/19 06:00 Temperature 97.4 F L 98.9 F 98.6 F Pulse Rate 99 100 109 H Respiratory Rate 16 16 16 Blood Pressure 136/73 144/58 H 116/68 Pulse Oximetry 92 94 92 08/25/19 10:28 Temperature Pulse Rate 112 H Respiratory Rate Blood Pressure Pulse Oximetry Intake/Output Intake/Output: Intake & Output 08/22/19 08/23/19 08/24/19 08/25/19 23:59 23:59 23:59 23:59 Intake Total 760 1300 1328 1112 Output Total 1000 2350 1300 6
--- NOTE | 2019-08-25 11:15 | PCOTNOTE ---
Attempted to see patient at this time, however patient was off floor once again.
--- NOTE | 2019-08-25 13:07 | PCPTNOTE ---
Attempted 2nd therapy session. Pt declined treatment due to feeling nauseated and worn out due to all the recent testing. Will continue per POC tomorrow.
[2019-08-25 14:00] VITALS: BP 134/56; PULSE 72; RESP 18; TEMP 36.9; O2SAT 97
--- NOTE | 2019-08-25 16:51 | WPDGIPROGNO ---
Progress Note: A&P Additional Plan Patient appears stable on NG tube decompression. Large amount return noted . Abdomen much softer after NG tube decompression. Labs with very mild elevation of serum transaminases. Ultrasound of the right upper quadrant reveals a cystic lesion in the pancreas. Small-bowel follow-through confirms delayed gastric emptying from extrinsic compression from the pancreatic cystic lesion. CT scan of the abdomen confirm cystic lesion in the pancreas. Secondary outlet obstruction of the stomach is identified. Impression 1. Gastric outlet obstruction. 2. Pancreatic cystic lesion. This is very large. This is symptomatic causing outlet obstruction from the stomach. 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 Pancreatic lipase will be obtained. CA 19-9 tumor marker will also be obtained. Pancreatic cyst will need drainage. Endoscopic ultrasound and endoscopic drainage is advised. This is not available at our institution I would advise transferred to [facility] or other tertiary care center to have this accomplished. I have discussed with hospitalist Dr. Sky her to arrange transfer. Patient should remain NPO with NG tube decompression until this can be accomplished. Subjective Date/time seen: 08/25/19 16:51 Objective Data Vital Signs Vital Signs: Vital Signs - 24 hr 08/24/19 22:00 08/25/19 06:00 08/25/19 10:28 Temperature 37.2 C 37.0 C Pulse Rate 100 109 H 112 H Respiratory Rate 16 16 Blood Pressure 144/58 H 116/68 Pulse Oximetry 94 92 Intake/Output Intake/Output: Intake & Output 08/22/19 08/23/19 08/24/19 08/25/19 23:59 23:59 23:59 23:59 Intake Total 760 1300 1328 2112 Output Total 1000 2350 1300 650 Balance -240 -1050 28 1462 Meds/Results Medications: Active Medications Generic Name Dose Route Start Last Admin Trade Name Freq PRN Reason Stop Dose Admin Acetaminophen 650 mg 08/22/19 11:59 Tylenol Tablet PO Q4H PRN Mild Pain (1-3) or Fever Albuterol 2.5 mg 08/18/19 16:32 08/18/19 19:26 Albuterol Sulf Neb 2.5mg/0.5ml INHALATION 2.5 mg Q6HRT PRN Administration Shortness Of Breath Ascorbic Acid 500 mg 08/18/19 09:00 08/24/19 16:23 Vitamin C PO Not Given DAILY TRAVIS Aspirin 325 mg 08/18/19 09:00 08/24/19 16:23 Aspirin PO Not Given DAILY [facility] Calcium Carbonate 200 mg 08/23/19 18:44 08/23/19 19:08 Tums PO 200 mg Q4H PRN Administration Indigestion Docusate Sodium 100 mg 08/18/19 09:00 08/24/19 16:27 Colace Capsule PO Not Given BID [facility] Enoxaparin Sodium 40 mg 08/19/19 09:00 08/25/19 09:56 Lovenox SUB-Q 40 mg DAILY [facility] Administration Ergocalciferol 50,000 unit 08/19/19 09:00 08/19/19 09:48 Drisdol PO 50,000 unit WEEKLY [facility] Administration Fish Oil 1 gm 08/18/19 09:00 08/24/19 16:27 Lovaza PO Not Given TID [facility] Guaifenesin 200 mg 08/18/19 18:50 08/19/19 20:57 Guaifenesin Liq PO 200 mg Q4H PRN Administration Cough Sodium Chloride 1,000 mls @ 100 mls/hr 08/23/19 10:20 08/25/19 12:13 Normal Saline Iv IV CONT 100 mls/hr .Q10H TRAVIS Administration Melatonin 3 mg 08/18/19 21:00 08/23/19 21:47 Melatonin PO Not Given HS [facility] Metoclopramide HCl 10 mg 08/24/19 12:00 08/25/19 12:14 Reglan IV PUSH 10 mg Q6HR [facility]VIS Administration Ondansetron HCl 4 mg 08/20/19 21:54 08/23/19 18:48 Zofran Inj IV PUSH 4 mg Q4H PRN Administration Nausea And Vomiting Pantoprazole Sodium 40 mg 08/24/19 10:40 08/25/19 09:57 Protonix Iv IV PUSH 40 mg Q12HR [facility] Administration Phenol 1 spray 08/25/19 10:16 Chloraseptic [place] MUCOUS MEM PRN PRN Sore Throat Phenytoin Sodium 200 mg 08/18/19 21:00 08/24/19 20:26 Dilantin Kapseals PO Not Given HS [facility] Primidone 250 mg 08/18/19 09:00 08/24/19 16:27 Primidone PO Not Given TID [facility] Propranolol HCl 80 mg 08/18/19 09:00 08/25/19 10:2
[2019-08-25 17:16] VITALS: PULSE 88
[2019-08-25 19:23] LABS: Lipase 91 U/L (23-300)
[2019-08-25 22:00] VITALS: BP 131/63; PULSE 97; RESP 16; TEMP 36.8; O2SAT 92
--- NOTE | 2019-08-25 23:25 | PC.NURSE ---
Patient was transferred to [facility] via stretcher with Todd JOHNSTON. Patient has all belongings with her.
--- NOTE | 2019-08-25 23:30 | PC.NURSE ---
Report was given to Zachary CAIN from [facility] at [phone]
--- NOTE | 2019-08-27 07:03 | PM.TDS ---
Transfer Discharge Sum: Prov Provider Date of admission: 08/23/19 13:12 Primary care physician: Singh Meyer, PA Admitting clinician: Aisha Ng DO Consults: 08/18/19 00:12 Consult to Physician Routine Comment: Consulting Provider: Dharmesh Ahmadi Reason for consultation: right oblique fibular fracture Has provider been notified: Yes 08/21/19 Consult to Physician Routine Comment: SPOKE TO LORA @1055 ([place]) Consulting Provider: Nitish Matt call worker/MD group to consult: DR MATT PT DUE TO GO TO REHAB TODAY VERY NAUSEATED WITH DISTENDED ABDO Reason for consultation: distended abdo ? IBS Has provider been notified: Yes Attending physician on discharge: Fausto Sky Discharging clinician: Fausto Sky Anticipated date of transfer: 08/25/19 Receiving physician/facility: Dr Coleman DS: Diagnosis Admitting Diagnosis Admitting Diagnosis: Other fracture of upper and lower end of right fibula, initial encounter for closed fracture Discharge Diagnosis (1) Reflux esophagitis: Code(s): K21.0 - Gastro-esophageal reflux disease with esophagitis Status: Acute Assessment and Plan: EGD showed reflux esophagitis, gastric retention and bile acid reflux. Started on IV Protonix. Limit oral meds until able to eat. (2) Vomiting: Qualifiers: Vomiting type: bilious vomiting Nausea presence: with nausea Qualified Code(s): R11.14 - Bilious vomiting Code(s): R11.10 - Vomiting, unspecified Status: Acute Assessment and Plan: EGD as mentioned above. Patient retained fluid noted in the stomach possibly related to extrinsic obstruction. NG tube was placed and secured. CT scan showing a 14cm cystic mass c/w pancreatic cyst, pseudocyst or macrocystic mucinous tumor. No hx of pancreatitis but the cyst has been noted in the past per patient. Small bowel series showing mass effect on gastric pylorus and duodenal sweep. Discussed with GI who felt pateitn should be transferred for further management. (3) Pancreatic cyst: Code(s): K86.2 - Cyst of pancreas Status: Acute Assessment and Plan: As above. (4) Closed right fibular fracture: Qualifiers: Encounter type: initial encounter Fibula location: distal Fracture morphology: unspecified fracture morphology Qualified Code(s): S82.831A - Other fracture of upper and lower end of right fibula, initial encounter for closed fracture Code(s): S82.401A - Unspecified fracture of shaft of right fibula, initial encounter for closed fracture Status: Acute Assessment and Plan: Seen by orthopedics and soft cast placed. Continue PT/OT. Patient has been accepted to rehab. (5) Elevated LFTs: Code(s): R94.5 - Abnormal results of liver function studies Status: Acute Assessment and Plan: Etiology unclear. Viral related? Medication? Related to pancreatic cyst? Hepatitis panel negative. Liver US showing cystic lesion otherwise normal US. LFTs improved. (6) Cough: Code(s): R05 - Cough Status: Resolved Assessment and Plan: CXR on 08/18 showing bilateral hyperinflation with some volume loss on the left. Cough improved. Continue symptomatic treatment with Robitussin prn, albuterol nebs prn and scheduled Medrol dose pack. (7) Seizures: Code(s): R56.9 - Unspecified convulsions Status: Acute Assessment and Plan: Stable. We continued Dilantin. Transfer Discharge Sum: Med Medications Active and Home Medications: Home Medications ascorbic acid (vitamin C) [Vitamin C] 500 mg PO DAILY 08/18/19 [History Confirmed 08/18/19] aspirin [Tank Aspirin] 325 mg PO DAILY 08/18/19 [History Confirmed 08/18/19] cholecalciferol (vitamin D3) [Vitamin D3] 1,000 unit PO DAILY 08/18/19 [History Confirmed 08/18/19] docusate sodium 100 mg PO BID 08/18/19 [History Confirmed 08/18/19] rei
[2019-08-27 10:04] LABS: Ceruloplasmin 32 mg/dL (18-53)
[2019-08-27 10:05] LABS: Anti Nuclear Antibody Pattern Nuclear, Speckled
[2019-08-28 02:52] LABS: CA 19-9 22 U/mL (<34)
== END 2019-08-25 23:25 | disposition short-term general hospital (02) | DRG 282 ==
LOC: ANHED 08-18 00:17 → ANH3MEDSUR 08-18 00:43
PROVIDERS: Family Medicine; Internal Medicine Gastroenterology; Orthopaedic Surgery; Admitting Provider Internal Medicine; Emergency Provider Emergency Medicine; PCP Physician Assistant; Visit Provider Internal Medicine
PROC: 0DJ08ZZ Inspection of Upper Intestinal Tract, Via Natural or Artificial Opening Endoscopic (ICD-10-PCS; CPT 43235; principal; 2019-08-24 11:00)
DX: K86.2 Cyst of pancreas (principal); K31.1 Adult hypertrophic pyloric stenosis; K21.0 Gastro-esophageal reflux disease with esophagitis; K29.60 Other gastritis without bleeding; K31.84 Gastroparesis; S82.434A Nondisplaced oblique fracture of shaft of right fibula, initial encounter for closed fracture; W06.XXXA Fall from bed, initial encounter; M25.562 Pain in left knee; R94.5 Abnormal results of liver function studies; I34.1 Nonrheumatic mitral (valve) prolapse; R11.14 Bilious vomiting; R05 Cough; G40.909 Epilepsy, unspecified, not intractable, without status epilepticus; E66.9 Obesity, unspecified; Z68.30 Body mass index [BMI] 30.0-30.9, adult; Z90.49 Acquired absence of other specified parts of digestive tract; Z79.82 Long term (current) use of aspirin
CPT/HCPCS: 29515; 36415; 70450; 71045; 73562; 73610; 74018; 74177; 74250; 76705; 80048; 80053; 80074; 80076; 81001; 82306; 82390; 82728; 83540; 83550; 83690; 84484; 85025; 85027; 85610; 85652; 85730; 86038; 86039; 86140; 86301; 93005; 94640; 96360; 96361; 96372; 96374; 97110; 97161; 97165; 97530; 97535; 99285; A9270; C9113; G0378; G0379; J0702; J1650; J1885; J2405; J2550; J2704; J2765; J3480; J7030; J7120; Q9967

== ENCOUNTER 2019-09-28 20:00 | Inpatient (IN) | payer OTHER, SELFPAY ==
--- NOTE | ~2019-09-28 | XR_ITS ---
EXAMINATION: XR chest 1V portable INDICATION: Shortness of breath TECHNIQUE: Portable AP chest at 2041 hours COMPARISON: 08/19/2019 FINDINGS: There is unchanged opacity at the left costophrenic angle consistent with mild scarring and atelectasis. The lungs are hyperinflated. There is no pleural effusion or pneumothorax. The cardiome diastinal silhouette is normal. 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 IMPRESSION: 1. No acute cardiopulmonary abnormality. Reviewed, dictated and finalized at location A.
[2019-09-28 20:07] VITALS: BP 95/58; PULSE 81; RESP 16; TEMP 36.4; O2SAT 98
[2019-09-28] MEDS: SODIUM CHLORIDE 0.9% IV 1,000 ML 999 ML (20:15)
[2019-09-28 20:22] VITALS: BP 82/60; PULSE 81
--- NOTE | 2019-09-28 20:23 | ECG_ITS ---
Measurements Intervals [place] Rate: 78 P: 36 IN: 150 QRS: 24 QRSD: 93 T: -1 QT: 371 QTc: 425 Interpretive Statements SINUS RHYTHM EARLY PRECORDIAL R/S TRANSITION LOW QRS VOLTAGE IN PRECORDIAL LEADS BORDERLINE T WAVE ABNORMALITY- ANT/INF LEADS BASELINE WANDER- II, III, V1-V3 BORDERLINE ECG Electronically Signed On 09-29-2019 7:03:00 CDT by Ayaz East D.O.
[2019-09-28 20:32] LABS: Basophils Percent Auto 0.5 % (0.2-1.2); Eosinophils Percent Auto 0.3 % (0-4.4); Hematocrit 40.3 % (37.0-47.0); Hemoglobin 13.1 g/dL (12.0-15.0); Immature Granulocyte Absolute 0.02 K/mm3 (0.00-0.031); Immature Granulocyte Percent A 0.5 % (0-0.5); Lymphocytes Absolute Auto 1.73 K/mm3 (0.9-3.2); Lymphocytes Percent Auto 45.3 % (18.3-44.2); Mean Corpuscular HGB Conc 32.5 g/dl (32-36); Mean Corpuscular Hemoglobin 32.5 pg (26-34); Mean Platelet Volume 10.6 fl (7.4-10.4); Monocytes Absolute Auto 0.7 K/mm3 (0.1-0.6); Monocytes Percent Auto 17.5 % (2.6-8.5); Neutrophils Absolute Auto 1.4 K/mm3 (1.3-6.7); Neutrophils Percent Auto 35.9 % (45.5-73.1); Platelet Count Result 188 k/mm3 (150-375); Red Blood Count 4.03 M/mm3 (4.2-5.4); Red Cell Distribution Width 13.5 % (11.5-14.5); White Blood Count 3.8 K/mm3 (4.5-10.0)
[2019-09-28 20:45] LABS: Blood Urea Nitrogen 17 mg/dL (7-17); Calcium 8.2 mg/dL (8.4-10.2); Carbon Dioxide 27 mmol/L (22-30); Chloride 102 mmol/L (98-107); Estimated Glomerular Filt Rate > 60; Glucose 107 mg/dL (65-105); Potassium 3.8 mmol/L (3.4-5.0); Sodium 135 mmol/L (137-145)
[2019-09-28 20:51] VITALS: BP 88/57; PULSE 81; RESP 14; O2SAT 97
--- NOTE | 2019-09-28 20:56 | ED.SOB ---
HPI - SOB/Dyspnea General Chief Complaint: Shortness of Breath/Dyspnea Stated Complaint: sob Time Seen by Provider: 09/28/19 20:46 History of Present Illness HPI Narrative: BIBEMS from [facility] for cough and generalized weakness. She reports that she has had a cough and mild dyspnea for the past 2 weeks. Yesterday she was not able to participate in therapy due to significant weakness. Today she was considerably worse. Per EMS she was noted to be hypotensive. Fluids and O2 were started. There are reportedly multiple residents at her facility that have tested postive for COVID-19. Related Data Home Medications Medication Instructions Recorded Confirmed ascorbic acid (vitamin C) [Vitamin 500 mg PO DAILY 08/18/19 08/18/19 C] aspirin [Tank Aspirin] 325 mg PO DAILY 08/18/19 08/18/19 cholecalciferol (vitamin D3) 1,000 unit PO DAILY 08/18/19 08/18/19 [Vitamin D3] docusate sodium 100 mg PO BID 08/18/19 08/18/19 melatonin 3 mg PO HS 08/18/19 08/18/19 omega 1-wql-[id number]-fish oil [Fish Oil] 1 cap PO TID 08/18/19 08/18/19 phenytoin sodium extended 100 mg PO BID 08/18/19 08/18/19 primidone 250 mg PO TID 08/18/19 08/18/19 propranolol 80 mg PO BID 08/18/19 08/18/19 thiamine HCl (vitamin B1) 100 mg PO DAILY 08/18/19 08/18/19 vitamin E 400 unit PO DAILY 08/18/19 08/18/19 albuterol sulfate 09/28/19 dextromethorphan-guaifenesin tablet PO 09/28/19 ipratropium bromide 09/28/19 09/28/19 phenytoin sodium extended PO 09/28/19 09/28/19 [Dilantin Extended] rivaroxaban mg 09/28/19 09/28/19 Allergies Allergy/AdvReac Type Severity Reaction Status Date / Time diphenhydramine Allergy Severe Other Verified 09/28/19 20:32 morphine Allergy Severe Other Verified 09/28/19 20:32 DIURETICS AdvReac Intermediate Palpitation Uncoded 09/28/19 20:32 s Review of Systems Review of Systems: All systems reviewed & are unremarkable except as noted in HPI and below Constitutional: Constitutional: Reports fatigue, Denies fever(s) and Reports weakness ENT: Denies sore throat Cardiovascular: Cardiovascular: Denies chest pain Respiratory: Respiratory: Reports cough and Reports dyspnea Gastrointestinal: Gastrointestinal: Reports nausea Genitourinary: Genitourinary: Denies dysuria Musculoskeletal: Musculoskeletal: Denies back pain Neurologic: Denies confusion [facility] Past Medical History Medical History MVP (mitral valve prolapse) Seizures Surgical History Surgical History Surgical history unknown Family History Family History Mother Uterine cancer Father Emphysema lung Mesothelioma Sibling Asthma Bronchitis Social History Social History Smoking status: Never smoker Second hand tobacco smoke exposure: Yes Alcohol intake: never Substance use: never Gender identity (if verbalized by the patient): Female Spiritual care concerns: No Agree to blood products: Yes Exam Const: General: alert and ill appearing acutely Orientation/consciousness: patient oriented x3 HENMT: Mouth: Yes dry mucous membranes Eyes: Pupils: Equal, round and reactive pupils present Resp: Effort & Inspection: normal respiratory effort Auscultation: clear to auscultation bilaterally Cardio: Rate: regular rate Rhythm: regular rhythm GI: GI Palp: Yes Soft to palpation and No Tenderness to palpation present (GI) Skin: General skin exam: pallor Neuro: General: patient oriented x3, moves all extremities and no focal motor deficits Speech: normal speech Extrem: General: no edema Other: walking boot in place on right ankle Course Vital Signs Vital signs: Vital Signs Temperature 36.4 C L 09/28/19 20:07 Pulse Rate 81 09/28/19 20:07 Respiratory Rate 16 09/28/19 20:07 Blood Pressure
[2019-09-28 21:33] LABS: Prothrombin Time 13.1 Seconds (11.1-14.7)
[2019-09-28 21:34] LABS: Lactic Acid Reflex 1.2 mmol/L (0.7-2.1); Partial Thromboplastin Time 44.3 SECONDS (22.3-36.8)
[2019-09-28 21:38] LABS: Alanine Aminotransferase 16 U/L (4-35); Albumin Level 3.2 g/dL (3.5-5.1); Alkaline Phosphatase 89 U/L (38-126); Aspartate Amino Transferase 31 U/L (14-36); Bilirubin,Total 0.3 mg/dL (0.2-1.3); CRP 7.8 mg/dL (<1.0); Lactate Dehydrogenase 562 U/L (313-618)
[2019-09-28 21:44] VITALS: BP 100/54; PULSE 83; RESP 14; TEMP 37.2; O2SAT 99
[2019-09-28] MEDS: SODIUM CHLORIDE 0.9% IV 1,000 ML 999 ML IV CONT (22:13)
[2019-09-28 22:30] VITALS: BP 99/58; PULSE 85; RESP 14; O2SAT 97
[2019-09-28 22:38] LABS: Add Urine Microscopic? YES; Appearance Urine Clear (Clear); Bacteria Urine Trace /hpf; Bilirubin Urine 2+ (Negative); Blood Urine Negative (Negative); Color Urine Yellow (Yellow); Glucose Urine UA Negative (Negative); Ketones Urine Negative (Negative); Leukocyte Esterase Ur Negative LEU/UL (Negative); Nitrate Urine Negative (Negative); Protein Urine 1+ mg/dL (Negative); RBC Urine 0-2 /hpf (0-2); Specific Grav Ur 1.028 (1.001-1.035); Squamous Epithelial Cell Urine Rare /hpf (Few); Urobilinogen Urine Negative mg/dL (<2.0); WBC Urine 0-3 /hpf
[2019-09-29] VITALS (9 sets, daily range): BP systolic 91–143; BP diastolic 32–78; PULSE 85–90; RESP 16–22; TEMP 36.8–37.4; O2SAT 90–95; BMI 30.4
[2019-09-29] MEDS: LACTATED RINGERS 1,000 ML 100 ML IV CONT ×3 (01:01→19:49)
--- NOTE | 2019-09-29 09:10 | PM.IMHP ---
H&P: HPI History of Present Illness Chief complaint: Hypotensive, Generalized weakness,Covid-19 Suspect Narrative: Date and Time of Service of History and Physical: September 29, 2019 at 8:10 a.m. Date and Time of Admission Order: September 28, 2019 at 10:20 p.m.. Chief Complaint: Cough. History of Present Illness: Roopa Hough is a 69 year old female disorder, recent diagnosis of pancreatic cysts, reflux esophagitis, recent right fibular fracture and migraine headaches currently residing at [facility] was sent to the emergency room with complaint of cough and generalized weakness. Patient herself states cough has been present for at least 3 months or more. She reports recently she did have 1 week of vomiting after coughing but that has ceased. Per ER record, nursing facility noted patient to have increasing problems with cough and shortness of breath over the past 2 weeks. Patient does admit to occasional shortness of breath with her cough. No chest pain or chest pressure. No diaphoresis. No recent fever. Additionally, nursing facility report patient was not able to pass date and therapy recently due to significant weakness with increased symptoms on the day of presentation to the emergency room. On arrival of EMS, patient was noted to be hypotensive with fluids started. Oxygen was also started. Multiple residents are positive for COVID-19 at patient's facility. In the emergency room, patient was confirmed to be hypotensive. Concern for possible pneumonia on imaging. Also concern for COVID-19 infection. Given her condition, she was admitted to the IMU for further evaluation and treatment. Review of Systems Review of Systems: All systems reviewed & are unremarkable except as noted in HPI and below Constitutional: Constitutional: Denies chills, Denies fever(s) and Reports weakness Eyes: Eyes: Denies blurry vision and Denies diplopia ENT: Denies dysphagia Cardiovascular: Cardiovascular: Denies chest pain and Denies palpitations Respiratory: Respiratory: Reports cough and Reports dyspnea (Occasional) Gastrointestinal: Gastrointestinal: Denies abdominal pain, Denies nausea and Denies vomiting Genitourinary: Genitourinary: Denies hematuria, Denies nocturia and Denies dysuria Musculoskeletal: Comments: recent right fibular fracture Integumentary/Breasts: Skin/Breast: Denies rash Neurologic: Reports headache(s) (known migraine headaches but none recently) Comments: history of seizures Psychiatric: Psychiatric: Denies confusion Endocrine: Endocrine: Reports no additional endocrine complaints Hematologic/Lymphatic: Hematologic/Lymphatic: Reports no additional hematologic/lymphatic complaints Allergic/Immunologic: Allergic/Immunologic: Reports no additional allergic/immunologic complaints PMFSH Past Medical History Medical History Migraine headache MVP (mitral valve prolapse) Seizures Surgical History Surgical History H/O: hysterectomy Family History Family History Mother Uterine cancer Father Emphysema lung Mesothelioma Sibling Asthma Bronchitis Social History Social History Social History: Patient is a never smoker. She reports she is a full code. She has no POA. No alcohol use. She has no children. Smoking status: Never smoker Second hand tobacco smoke exposure: Yes Alcohol intake: never Substance use: never Additional living arrangements comments: Currently residing at [facility] Gender identity (if verbalized by the patient): Female Spiritual care concerns: No Agree to blood products: Yes Meds Home Medications and Allergies Home Medications Medication Instructions Recorded Confirmed Type aspiri
[2019-09-29] MEDS: RIVAROXABAN 2.5 MG TABLET PO ×2 (10:42→19:47)
[2019-09-29] MEDS: PRIMIDONE 250 MG TABLET PO ×2 (10:43→16:53)
[2019-09-29] MEDS: ASPIRIN 325 MG TABLET PO (10:43)
[2019-09-29 15:47] LABS: SARS-CoV-2 RNA PCR Positive
[2019-09-29 18:57] LABS: Add Urine Microscopic? YES; Appearance Urine Clear (Clear); Bacteria Urine Trace /hpf; Bilirubin Urine Negative (Negative); Blood Urine 1+ (Negative); Color Urine Straw (Yellow); Glucose Urine UA Negative (Negative); Ketones Urine Negative (Negative); Leukocyte Esterase Ur Trace LEU/UL (NEGATIVE); Nitrate Urine Negative (Negative); Protein Urine Negative (Negative); RBC Urine 0-2 /hpf (0-2); Squamous Epithelial Cell Urine Moderate /hpf (Few); Urobilinogen Urine Negative mg/dL (<2.0)
[2019-09-29] MEDS: PHENYTOIN SODIUM 100 MG CAP 200 MG PO (19:48)
[2019-09-30] VITALS: BP 137/62; PULSE 88; RESP 20; TEMP 38; O2SAT 94
[2019-09-30 02:47] LABS: Hematocrit 33.3 % (37.0-47.0); Hemoglobin 11.3 g/dL (12.0-15.0); Mean Corpuscular HGB Conc 33.9 g/dl (32-36); Mean Corpuscular Hemoglobin 32.9 pg (26-34); Mean Corpuscular Volume 97.1 fl (80-100); Mean Platelet Volume 11.2 fl (7.4-10.4); Platelet Count Result 148 k/mm3 (150-375); Red Blood Count 3.43 M/mm3 (4.2-5.4); Red Cell Distribution Width 13.2 % (11.5-14.5); White Blood Count 3.2 K/mm3 (4.5-10.0)
[2019-09-30 03:31] LABS: Alanine Aminotransferase 23 U/L (4-35); Alkaline Phosphatase 73 U/L (38-126); Aspartate Amino Transferase 50 U/L (14-36); Bilirubin,Total 0.5 mg/dL (0.2-1.3); Blood Urea Nitrogen 8 mg/dL (7-17); Calcium 7.5 mg/dL (8.4-10.2); Carbon Dioxide 23 mmol/L (22-30); Chloride 105 mmol/L (98-107); Creatine Kinase 209 U/L (30-135); Estimated CRCL calculation 88 ml/min; Estimated Glomerular Filt Rate > 60; Glucose 110 mg/dL (65-105); Lactate Dehydrogenase 827 U/L (313-618); Magnesium 1.7 mg/dL (1.6-2.3); Potassium 3.7 mmol/L (3.4-5.0); Sodium 132 mmol/L (137-145)
[2019-09-30 08:00] VITALS: BP 97/53; PULSE 88; RESP 20; TEMP 37.3; O2SAT 92
[2019-09-30] MEDS: PRIMIDONE 250 MG TABLET PO ×2 (08:36→12:19)
[2019-09-30] MEDS: ASPIRIN 325 MG TABLET PO (08:36)
[2019-09-30] MEDS: RIVAROXABAN 2.5 MG TABLET PO (08:36)
--- NOTE | 2019-09-30 09:44 | PM.IMPN ---
Progress Note: A&P Assessment and Plan (1) Hypotension: Qualifiers: Hypotension type: unspecified hypotension type Qualified Code(s): I95.9 - Hypotension, unspecified Code(s): I95.9 - Hypotension, unspecified Status: Acute Assessment and Plan: Patient was hypotensive on admission with appropriate fluid resuscitation given. Blood pressure reviewed on 09/30/2019 and improved. Occasional low normal readings but was normal range overnight. Discontinue IV fluids. Will monitor blood pressure. Is now stable. Blood cultures negative thus far. Repeat UA still not highly suggestive of UTI. Urine culture is pending. Continue to hold propranolol. Possible discharge later today or tomorrow depending on how she is doing. (2) COVID-19 virus infection: Code(s): U07.1 - COVID-19 Status: Acute Assessment and Plan: COVID-19 testing positive. Clinically and radiographically no pneumonia. Will continue symptomatic treatment. (3) Dehydration: Code(s): E86.0 - Dehydration Status: Acute Assessment and Plan: Improved. Discontinue IV fluids. Will monitor. (4) Cough: Code(s): R05 - Cough Status: Acute Assessment and Plan: Questionable as to exact length of time cough has been present. Suspect there is at least a chronic component. Also is COVID-19 positive. No antibiotics as viral infection and no sign of bacterial superinfection. Remains on room air. Will monitor. (5) Generalized weakness: Code(s): R53.1 - Weakness Status: Acute Assessment and Plan: Most likely result of dehydration at this point. Positive COVID-19 infection. Continue current treatment. Will not initiate PT/OT with positive COVID-19 testing inpatient moving on her own but will need to continue rehab once discharged back to nursing facility. (6) Pancreatic cyst: Code(s): K86.2 - Cyst of pancreas Status: Acute Assessment and Plan: Noted on last admission. Patient reports she has followed with GI at [facility]. No acute issue presently. LFTs normal. Will monitor for now. (7) Seizures: Code(s): R56.9 - Unspecified convulsions Status: Acute Assessment and Plan: Stable. No seizure activity. Continue home phenytoin. (8) Closed right fibular fracture: Qualifiers: Encounter type: initial encounter Fibula location: distal Fracture morphology: unspecified fracture morphology Qualified Code(s): S82.831A - Other fracture of upper and lower end of right fibula, initial encounter for closed fracture Code(s): S82.401A - Unspecified fracture of shaft of right fibula, initial encounter for closed fracture Status: Acute Assessment and Plan: Continue boot as already in place. Will need to follow-up with her orthopedist as an outpatient. (9) DVT prophylaxis: Code(s): Z29.9 - Encounter for prophylactic measures, unspecified Status: Acute Assessment and Plan: Continue home Xarelto. Time Spent With Patient Time with patient: 15 - 25 minutes Subjective Date/time seen: 09/30/19 09:44 Interval history: Date of Service: 09/30/2019. Admitted with hypotension, dehydration, COVID-19 infection. Patient still has dry cough with associated shortness of breath. No chest pain or pressure. No headache or dizziness. No abdominal pain. No nausea or vomiting. Overall feeling better today. Review of Systems Review of Systems: Narrative: Feeling better. Constitutional: Constitutional: Reports fever(s) (Low-grade at 100.4 today) ENT: Denies nasal congestion and Denies nasal discharge Cardiovascular: Cardiovascular: Denies chest pain Respiratory: Respiratory: Reports cough (Nonproductive) and Reports dyspnea (With cough) Gastrointestinal: Gastrointestinal: Denies abdominal pain, Denies nausea and Denies vomiting Genitourinary: Genitourinary: Reports no additional femal
[2019-09-30 10:30] VITALS: BP 121/70
[2019-09-30 12:20] VITALS: BP 112/55
--- NOTE | 2019-09-30 17:28 | PM.DS ---
DS: Diagnosis Admitting Diagnosis Admitting Diagnosis: Hypotension, unspecified Discharge Diagnosis (1) Hypotension: Qualifiers: Hypotension type: unspecified hypotension type Qualified Code(s): I95.9 - Hypotension, unspecified Code(s): I95.9 - Hypotension, unspecified Status: Acute (2) COVID-19 virus infection: Code(s): U07.1 - COVID-19 Status: Acute (3) Dehydration: Code(s): E86.0 - Dehydration Status: Acute (4) Cough: Code(s): R05 - Cough Status: Acute (5) Generalized weakness: Code(s): R53.1 - Weakness Status: Acute (6) Pancreatic cyst: Code(s): K86.2 - Cyst of pancreas Status: Acute (7) Seizures: Code(s): R56.9 - Unspecified convulsions Status: Acute (8) Closed right fibular fracture: Qualifiers: Encounter type: initial encounter Fibula location: distal Fracture morphology: unspecified fracture morphology Qualified Code(s): S82.831A - Other fracture of upper and lower end of right fibula, initial encounter for closed fracture Code(s): S82.401A - Unspecified fracture of shaft of right fibula, initial encounter for closed fracture Status: Acute DS: Summary Hospital Course Reason for hospitalization: Hypotensive, generalized weakness, COVID-19 suspect. Hospital Course: Date of Service of Discharge: September 30, 2019. History of Present Illness: Patient is a 69-year-old female with known seizure disorder, recent diagnosis of pancreatic cyst, reflux esophagitis and recent right fibular fracture along with migraine headaches currently residing at [facility] who was sent to the emergency room complaint of cough and generalized weakness. Patient herself stated cough has been present for at least 3 months or more. She does report recent 1 week of vomiting after coughing but that has ceased. In the emergency room, nursing facility reported patient have increasing problems with cough and shortness of breath over the past 2 weeks. Patient did admit to occasional shortness of breath with her cough. No chest pain or chest pressure. No diaphoresis. No recent fever. Additionally, nursing facility patient was unable to work with therapy due to increased weakness. Multiple residents are positive for COVID-19 at patient's facility. on arrival of EMS, patient was noted to be hypotensive with fluids started. In the emergency room, patient was confirmed to be hypotensive. Concern for possible pneumonia on imaging and concern for COVID-19 infection. Given her condition, patient was admitted to IMU for further evaluation and treatment. Course in Hospital: Patient was admitted to the IMU initially and continued on IV fluids with blood pressure monitored. Home propranolol was held with other medications continued. Patient did not require any pressor agents. With IV rehydration, blood pressure stabilized and returned to normal. Patient did continue to have cough but chest x-ray was negative for pneumonia. She was not started on IV antibiotics as result. COVID-19 testing returned positive with patient continued on isolation that was initiated on presentation. IV fluids were able to be discontinued completely on the morning of discharge. Blood pressure continued to be monitored and remained stable throughout the remainder of the day. She did also remain on room air throughout the duration of her stay. Patient was able to ambulate on her own in her room with weakness improved. She was continued on her Keppra for seizure disorder with no issues. Urine culture was ordered pending at discharge although UA times to not suspicious for infection and once again no antibiotics given. With the patient improved and stable, she was discharged back to [facility] on September 30, 2019. Status at Discharge Cognitive/behavioral status at discharge: Stable. Functional status at discharge: emmiee
== END 2019-09-30 17:20 | DRG 137 ==
LOC: ANHED 20:46 → ANHICU 23:03
PROVIDERS: Hospitalist; Admitting Provider Internal Medicine; Emergency Provider Emergency Medicine; PCP Physician Assistant; Visit Provider Internal Medicine
DX: U07.1 COVID-19 (principal); E86.0 Dehydration; I95.9 Hypotension, unspecified; K86.2 Cyst of pancreas; K21.0 Gastro-esophageal reflux disease with esophagitis; G40.909 Epilepsy, unspecified, not intractable, without status epilepticus; G43.909 Migraine, unspecified, not intractable, without status migrainosus; S82.831D Other fracture of upper and lower end of right fibula, subsequent encounter for closed fracture with routine healing; X58.XXXD Exposure to other specified factors, subsequent encounter; Z90.710 Acquired absence of both cervix and uterus
CPT/HCPCS: 36415; 51701; 71045; 80048; 80053; 80076; 81001; 82550; 82728; 83605; 83615; 83735; 85025; 85027; 85380; 85610; 85730; 86140; 87040; 87086; 87635; 93005; 96360; 96361; 99285; A9270; C9803; J7030; J7120; U0003

== ENCOUNTER 2019-11-11 02:34 | Observation (INO) | payer OTHER, SELFPAY ==
[2019-11-11] VITALS (24 sets, daily range): BP systolic 107–123; BP diastolic 63–81; PULSE 89–113; RESP 11–20; TEMP 36.7–36.8; O2SAT 92–98
--- NOTE | ~2019-11-11 | CT_ITS ---
EXAMINATION: CT abdomen pelvis w con DATE: 11/11/2019 03:50 INDICATION: Upper abdominal pain. TECHNIQUE: Computed tomography (CT) of the abdomen and pelvis was performed with 100 mL Omnipaque 350 intravenous contrast. Automated exposure control and iterative reconstruction technique were employe d. The dose-length product was 642.00 mGy-cm. COMPARISON: CT abdomen and pelvis 08/25/2019 FINDINGS: The visualized portions of the lung bases demonstrate mild atelectasis. Again seen are mult iple nodules in left lung lower lobe measuring up to 6 mm, consistent with granulomatous disease. No pleural effusion. The heart size is normal. No pericardial effusion. There is a 7 mm cyst in the live r. There is hypertrophy of left lateral segment of the liver. There are changes of cholecystectomy. T here is a 14.7 x 9.6 x 12.6 cm cystic mass with thin septations and small peripheral calcification in the head of the pancreas that previously measured 14.1 x 8.9 x 12.3 cm. The pancreatic duct is riri l in caliber. The adrenal glands are normal. There is cortical thinning of left kidney. There are cys ts in the kidneys measuring up to 14 mm on the left. There is diverticulosis of the colon without jazzy dence of diverticulitis. There are no dilated loops of bowel. The appendix is normal. There are no pa thologically enlarged lymph nodes. There is no free intraperitoneal fluid. There is lumbar levoscolio sis and severe thoracolumbar spondylosis. IMPRESSION: 1. Stable 14.7 cm cystic mass of the pancreas. The differential diagnosis includes pseudocyst, mucino us cystic neoplasm, and serous cystadenoma. Reviewed, dictated and finalized at location A. IMPRESSION: 1. Stable 14.7 cm cystic mass of the pancreas. The differential diagnosis inclu gamal pseudocyst, mucinous cystic neoplasm, and serous cystadenoma.
--- NOTE | 2019-11-11 02:44 | ED.ABDPAIN ---
HPI - Abdominal Pain General Chief Complaint: Abdominal Pain Stated Complaint: abd pain Source: RN notes reviewed History of Present Illness HPI narrative: Patient presents to emergency department from [facility] via EMS for abdominal pain. Patient states pain began this evening pain located across the upper abdomen described as a twisting sensation. States the pain does not radiate. Denies any fevers or chills chest pain shortness of breath nausea vomiting diarrhea or any other symptoms. Patient was given fentanyl 100 mcg by EMS with improvement of her pain. Patient states she has had a history of a previous cholecystectomy Related Data Home Medications Medication Instructions Recorded Confirmed aspirin [Tank Aspirin] 325 mg PO DAILY 08/18/19 09/29/19 primidone 250 mg PO TID 08/18/19 09/29/19 propranolol 80 mg PO BID 08/18/19 09/29/19 albuterol sulfate 2.5 mg INHALATION Q4H PRN 09/28/19 09/29/19 dextromethorphan-guaifenesin 1 tablet PO Q12H PRN 09/28/19 09/29/19 ipratropium bromide 3 ml INHALATION TID 09/28/19 09/29/19 phenytoin sodium extended 200 mg PO HS 09/28/19 09/29/19 [Dilantin Extended] rivaroxaban 2.5 mg PO Q12H 09/28/19 09/29/19 [id number]-dtkhptu-fsrzfnom 1 cap PO Q6H PRN 09/29/19 09/29/19 [Fiorinal] Excedrin Migraine 1 tablet PO Q4-6H PRN 09/30/19 09/30/19 Allergies Allergy/AdvReac Type Severity Reaction Status Date / Time diphenhydramine Allergy Severe Other Verified 11/11/19 02:45 morphine Allergy Severe Other Verified 11/11/19 02:45 DIURETICS AdvReac Intermediate Palpitation Uncoded 09/28/19 20:32 s Review of Systems Review of Systems: Narrative: Gen.: Denies fevers or chills ENT: Denies congestion Respiratory: Denies shortness of breath or cough CV: Denies chest pain or palpitations See HPI denies burning, urgency, frequency or hematuria Musculoskeletal: Denies back pain or muscle pain Neuro: Denies numbness, tingling, weakness or focal weakness Skin: Denies rash Except as documented, all other systems reviewed and negative [facility] Past Medical History Medical History Migraine headache MVP (mitral valve prolapse) Seizures Social History Social History Social History: Patient is a never smoker. She reports she is a full code. She has no POA. No alcohol use. She has no children. Smoking status: Never smoker Second hand tobacco smoke exposure: Yes Alcohol intake: never Substance use: never Additional living arrangements comments: Currently residing at [facility] Gender identity (if verbalized by the patient): Female Spiritual care concerns: No Agree to blood products: Yes Exam Narrative: Exam Narrative: APPEARANCE: No acute distress, nontoxic, resting in bed HEENT: Normocephalic, atraumatic, OMM RESPIRATORY: No respiratory distress, clear to auscultation bilaterally with no rhonchi wheezing or rales CARDIOVASCULAR: RRR s murmur ABDOMINAL: Soft, nondistended, tender palpation epigastric and right upper quadrant left lower quadrant, no tenderness right lower quadrant left lower quadrant no rebound or guarding MUSCULOSKELETAl: Moves all extremities. No clubbing, cyanosis or edema. NEURO: Awake and alert. Following commands, speech normal, no focal deficits SKIN:: Warm, dry. Normal Color PSYCHIATRIC: Normal affect/mood Course Course Emergency Course: Discussed with Dr. Ng presentation and work-up. Agrees with admission at this time Discussed with patient and family results of workup and diagnosis. Discussed need for admission. Patient and family understand and agree to current treatment plan Vital Signs Vital signs: Vital Signs Temperature 98.2 F 11/11/19 02:33 Pulse Rate 104 H 11/11/19 02:33 Respiratory Rate 14 11/11/19 02:33 Blood Pressure 112/81 11/11/19 02:33 Pulse Oximetry 96 11/11/19 02:33 Temperatur
[2019-11-11] MEDS: SODIUM CHLORIDE 0.9% IV 1,000 ML 999 ML IV CONT (02:46)
[2019-11-11 03:27] LABS: Basophils Absolute Auto 0.1 K/mm3 (0.0-0.1); Basophils Percent Auto 0.7 % (0.2-1.2); Eosinophils Absolute Auto 0.2 K/mm3 (0-0.3); Eosinophils Percent Auto 2.2 % (0-4.4); Hematocrit 39.4 % (37.0-47.0); Hemoglobin 13.2 g/dL (12.0-15.0); Immature Granulocyte Absolute 0.02 K/mm3 (0.00-0.031); Immature Granulocyte Percent A 0.3 % (0-0.5); Lymphocytes Percent Auto 30.6 % (18.3-44.2); Mean Corpuscular HGB Conc 33.5 g/dl (32-36); Mean Corpuscular Hemoglobin 33.2 pg (26-34); Mean Platelet Volume 9.9 fl (7.4-10.4); Monocytes Absolute Auto 0.9 K/mm3 (0.1-0.6); Monocytes Percent Auto 12.4 % (2.6-8.5); Neutrophils Absolute Auto 3.9 K/mm3 (1.3-6.7); Neutrophils Percent Auto 53.8 % (45.5-73.1); Platelet Count Result 289 k/mm3 (150-375); Red Blood Count 3.98 M/mm3 (4.2-5.4); Red Cell Distribution Width 13.2 % (11.5-14.5); White Blood Count 7.2 K/mm3 (4.5-10.0)
[2019-11-11 03:37] LABS: Alanine Aminotransferase 13 U/L (4-35); Alkaline Phosphatase 107 U/L (38-126); Aspartate Amino Transferase 21 U/L (14-36); Bilirubin,Total 0.4 mg/dL (0.2-1.3); Blood Urea Nitrogen 12 mg/dL (7-17); Calcium 8.8 mg/dL (8.4-10.2); Carbon Dioxide 22 mmol/L (22-30); Chloride 106 mmol/L (98-107); Estimated CRCL calculation 68 ml/min; Estimated Glomerular Filt Rate > 60; Glucose 115 mg/dL (65-105); INR 1.1; Lipase 1091 U/L (23-300); Potassium 3.7 mmol/L (3.4-5.0); Prothrombin Time 13.6 Seconds (11.1-14.7); Sodium 137 mmol/L (137-145)
[2019-11-11 03:38] LABS: Lactic Acid Reflex 1.1 mmol/L (0.7-2.1)
[2019-11-11 03:39] LABS: Partial Thromboplastin Time 43.9 SECONDS (22.3-36.8)
[2019-11-11 03:40] LABS: Estimated CRCL calculation 68 ml/min; Estimated Glomerular Filt Rate > 60
--- NOTE | 2019-11-11 04:10 | PC.NURSE ---
Patient aware of need for urine specimen. Patient refusing straight cath, patient unable to provide a urine specimen at this time.
--- NOTE | 2019-11-11 04:30 | PC.NURSE ---
Salina,patient's nurse from the [place] calls to get update on patient's status.This nurse informed Salina on what tests were done and we are just waiting for results at this time. Salina stated she will call back later.
--- NOTE | 2019-11-11 05:37 | PC.NURSE ---
Patient aware of still needing a urine specimen. Patient refusing straight cath, patient unable to provide a urine specimen at this time. Patient a/ox3.
--- NOTE | 2019-11-11 05:52 | PC.NURSE ---
Salina, patient's nurse at the [place] calls to get update on patient. This nurse informed Salina, that patient has pancreatitis and the EDP plans to admit the patient.
--- NOTE | 2019-11-11 06:06 | PC.NURSE ---
Patient's sister calls to get update on patient. This nurse informed her that the patient has been diagnosed with pancreatitis and will be admitted.
[2019-11-11 06:43] LABS: Add Urine Microscopic? YES; Appearance Urine Clear (Clear); Bilirubin Urine Negative (Negative); Blood Urine Negative (Negative); Color Urine Straw (Yellow); Glucose Urine UA Negative (Negative); Ketones Urine Negative (Negative); Leukocyte Esterase Ur 1+ LEU/UL (Negative); Mucus Urine Rare /lpf; Nitrate Urine Negative (Negative); Protein Urine Negative (Negative); RBC Urine 0-2 /hpf (0-2); Squamous Epithelial Cell Urine Many /hpf (Few); Urobilinogen Urine Negative mg/dL (<2.0)
[2019-11-11 06:46] LABS: Specific Grav Ur > 1.060 (1.001-1.035)
[2019-11-11] MEDS: SODIUM CHLORIDE 0.9% IV 1,000 ML 150 ML IV CONT ×2 (07:01→13:28)
--- NOTE | 2019-11-11 12:34 | PM.IMHP ---
H&P: HPI History of Present Illness Chief complaint: abd pain Narrative: Date and Time of History and Physical: November 11, 2019 at 12:15 p.m. Date and Time of Placement in Observation Order: November 11, 2019 at 5:55 a.m.. Chief Complaint: Upper abdominal pain. History of Present Illness: Roopa Hough is a 69 year old female with known recent diagnosis of pancreatic cysts, reflux esophagitis, recent right fibular fracture and migraine headaches currently residing at [facility] due to the fibular fracture was sent in to the emergency room due to upper abdominal pain. Patient reports no unusual activity yesterday. She reports having upper abdominal pain described as ?a wet tell being wrung out? causing her to double over. She does no recent constipation but no diarrhea. No nausea or vomiting. No fever chills. She was recently hospitalized here at the end of September with hypotension and dehydration. Patient also had cough at that time that she reports is essentially gone. She does report being recently given a medication to prevent blood clots but that has been stopped. No other new medications. No alcohol use. In the emergency room, findings were consistent with increased size of pancreatic cyst along with elevated lipase. As result, she has been placed in observation for further evaluation and treatment. Review of Systems Review of Systems: All systems reviewed & are unremarkable except as noted in HPI and below Constitutional: Constitutional: Denies chills and Denies fever(s) Eyes: Eyes: Denies blurry vision and Denies diplopia ENT: Denies dysphagia Cardiovascular: Cardiovascular: Denies chest pain and Denies palpitations Respiratory: Respiratory: Denies cough and Denies dyspnea Gastrointestinal: Gastrointestinal: Reports abdominal pain (upper abdomen), Reports constipation, Denies diarrhea, Denies nausea and Denies vomiting Genitourinary: Genitourinary: Denies hematuria, Denies nocturia and Denies dysuria Musculoskeletal: Comments: recent right fibula fracture Integumentary/Breasts: Skin/Breast: Denies rash Neurologic: Denies headache(s) Psychiatric: Psychiatric: Denies anxiety, Denies confusion and Denies depression Endocrine: Endocrine: Reports no additional endocrine complaints Hematologic/Lymphatic: Hematologic/Lymphatic: Reports no additional hematologic/lymphatic complaints Allergic/Immunologic: Allergic/Immunologic: Reports no additional allergic/immunologic complaints [facility] Past Medical History Medical History Migraine headache MVP (mitral valve prolapse) Pancreatic cyst Reflux esophagitis Seizures Social History Social History Social History: Patient currently at sn[facility] facility for rehab. Does have a roommate when at home. She is a never smoker. No alcohol use. She has no POA. She has no children. She is a full code. Smoking status: Never smoker Second hand tobacco smoke exposure: Yes Alcohol intake: never Substance use: never Additional living arrangements comments: Currently residing at [facility] Gender identity (if verbalized by the patient): Female Spiritual care concerns: No Agree to blood products: Yes Meds Home Medications and Allergies Home Medications Medication Instructions Recorded Confirmed Type aspirin [Tank Aspirin] 325 mg PO DAILY 08/18/19 11/11/19 History primidone 250 mg PO TID 08/18/19 11/11/19 History albuterol sulfate 2.5 mg INHALATION Q4H PRN 09/28/19 11/11/19 History dextromethorphan-guaifenesin 1 tablet PO Q12H PRN 09/28/19 11/11/19 History ipratropium bromide 3 ml INHALATION TID 09/28/19 11/11/19 History phenytoin sodium extended 200 mg PO 1900 09/28/19 11/11/19 History [Dilantin Extended] cmdpyuqjbr-muzzwlo-dwqsocac 1 cap PO Q6H PRN 09/29/19 11/11/19 History [Fiorinal
[2019-11-11] MEDS: PRIMIDONE 250 MG TABLET PO (13:28)
[2019-11-11] MEDS: IPRATROPIUM BR 0.02% INH SOLN 0.5 MG/2.5 ML VIAL INHALATION ×2 (14:37→19:56)
[2019-11-11] MEDS: ALBUTEROL SULFATE NEB 2.5 MG/0.5 ML INH INHALATION (19:56)
[2019-11-11] MEDS: PROPRANOLOL HCL 10 MG TABLET PO (20:37)
[2019-11-11] MEDS: PHENYTOIN SODIUM 100 MG CAP 200 MG PO (20:38)
[2019-11-12] VITALS (9 sets, daily range): BP systolic 124–136; BP diastolic 54–79; PULSE 85–106; RESP 16–20; TEMP 36.7–36.8; O2SAT 94–97
[2019-11-12] MEDS: SODIUM CHLORIDE 0.9% IV 1,000 ML 150 ML IV CONT (05:41)
[2019-11-12 05:58] LABS: Basophils Percent Auto 0.8 % (0.2-1.2); Eosinophils Absolute Auto 0.1 K/mm3 (0-0.3); Eosinophils Percent Auto 2.1 % (0-4.4); Hematocrit 38.4 % (37.0-47.0); Hemoglobin 12.7 g/dL (12.0-15.0); Immature Granulocyte Absolute 0.01 K/mm3 (0.00-0.031); Immature Granulocyte Percent A 0.2 % (0-0.5); Lymphocytes Absolute Auto 2.11 K/mm3 (0.9-3.2); Lymphocytes Percent Auto 40.3 % (18.3-44.2); Mean Corpuscular HGB Conc 33.1 g/dl (32-36); Mean Corpuscular Hemoglobin 32.9 pg (26-34); Mean Corpuscular Volume 99.5 fl (80-100); Mean Platelet Volume 10.1 fl (7.4-10.4); Monocytes Absolute Auto 0.7 K/mm3 (0.1-0.6); Neutrophils Absolute Auto 2.3 K/mm3 (1.3-6.7); Neutrophils Percent Auto 43.6 % (45.5-73.1); Platelet Count Result 287 k/mm3 (150-375); Red Blood Count 3.86 M/mm3 (4.2-5.4); Red Cell Distribution Width 13.2 % (11.5-14.5); White Blood Count 5.2 K/mm3 (4.5-10.0)
[2019-11-12 06:11] LABS: Alanine Aminotransferase 12 U/L (4-35); Albumin Level 3.8 g/dL (3.5-5.1); Alkaline Phosphatase 105 U/L (38-126); Aspartate Amino Transferase 22 U/L (14-36); Bilirubin,Total 0.6 mg/dL (0.2-1.3); Blood Urea Nitrogen 7 mg/dL (7-17); Calcium 8.7 mg/dL (8.4-10.2); Carbon Dioxide 24 mmol/L (22-30); Chloride 110 mmol/L (98-107); Estimated CRCL calculation 68 ml/min; Estimated Glomerular Filt Rate > 60; Glucose 96 mg/dL (65-105); Lipase 159 U/L (23-300); Potassium 3.7 mmol/L (3.4-5.0); Sodium 138 mmol/L (137-145)
[2019-11-12] MEDS: IPRATROPIUM BR 0.02% INH SOLN 0.5 MG/2.5 ML VIAL INHALATION ×2 (08:42→13:41)
[2019-11-12] MEDS: PRIMIDONE 250 MG TABLET PO ×3 (09:01→17:27)
[2019-11-12] MEDS: PROPRANOLOL HCL 10 MG TABLET PO ×2 (09:02→20:41)
--- NOTE | 2019-11-12 12:17 | PM.IMPN ---
Progress Note: A&P Assessment and Plan (1) Acute pancreatitis: Qualifiers: Acute pancreatitis complication: no infection or necrosis Pancreatitis type: unspecified pancreatitis type Qualified Code(s): K85.90 - Acute pancreatitis without necrosis or infection, unspecified Code(s): K85.90 - Acute pancreatitis without necrosis or infection, unspecified Status: Acute Assessment and Plan: CT scan of abdomen/pelvis with stable 14.7 cm cystic mass of the pancreas and no obvious sign of pancreatitis but lipase elevated to 1091 at admission. LFTs are normal. WBC is normal. Lipase is 159. The patient was NPO yesterday. She had bowel movement today. Her abdominal pain has resolved. She is requesting to advance her diet. Plan to begin a clear liquid diet and advance as tolerated. (2) Pancreatic cyst: Code(s): K86.2 - Cyst of pancreas Status: Chronic Assessment and Plan: Stable by CT imaging as noted above. Continue treatment as noted above. (3) Reflux esophagitis: Code(s): K21.0 - Gastro-esophageal reflux disease with esophagitis Status: Chronic Assessment and Plan: Continue protonix. She is not having any further pain at this time. (4) Dehydration: Code(s): E86.0 - Dehydration Status: Acute Assessment and Plan: Mild dehydration clinically at presentation. She is improving from this standpoint. Will decrease rate of IV fluids and discontinue if she tolerates advancing her diet. (5) Seizures: Code(s): R56.9 - Unspecified convulsions Status: Chronic Assessment and Plan: No seizure activity at this time. Continue phenytoin and primidone. (6) Migraine headache: Qualifiers: Migraine type: unspecified Status migrainosus presence: without status migrainosus Intractability: not intractable Qualified Code(s): G43.909 - Migraine, unspecified, not intractable, without status migrainosus Code(s): G43.909 - Migraine, unspecified, not intractable, without status migrainosus Status: Chronic Assessment and Plan: During her last stay, patient's prophylactic propranolol was discontinued due to hypotension. Blood pressures were reviewed and are acceptable. Continue propranolol 10mg BID and continue to monitor. Will hold off on giving patient's Fiorinal at the present time and resume once she is tolerating PO intake well. (7) Closed right fibular fracture: Qualifiers: Encounter type: initial encounter Fibula location: distal Fracture morphology: unspecified fracture morphology Qualified Code(s): S82.831A - Other fracture of upper and lower end of right fibula, initial encounter for closed fracture Code(s): S82.401A - Unspecified fracture of shaft of right fibula, initial encounter for closed fracture Status: Chronic Assessment and Plan: Continue PT/OT. (8) DVT prophylaxis: Code(s): Z29.9 - Encounter for prophylactic measures, unspecified Status: Acute Assessment and Plan: SCDs. (9) Need for discharge planning: Status: Acute Assessment and Plan: Will order SARS-CoV-2 testing for readmission to [facility] as discharge is anticipated within the next 48 hours. Time Spent With Patient Time with patient: 15 - 25 minutes Subjective Date/time seen: 11/12/19 12:17 Interval history: Mrs. Hough is seen and examined at bedside in follow-up for acute pancreatits. She reports that her abdominal pain has resolved completely. She had a bowel movement earlier today which was formed. She is requesting to advance her diet. She denies nausea and vomiting. She denies chest pain and shortness of breath. She reports that she is having a migraine which is improving. She has no other concerns. Review of Systems Review of Systems: All systems reviewed & are unremarkable except as noted in HPI and below Exam Narrative: Exam Narrative: General: Ple
[2019-11-12] MEDS: SODIUM CHLORIDE 0.9% IV 1,000 ML 100 ML IV CONT (13:06)
[2019-11-12] MEDS: ALBUTEROL SULFATE NEB 2.5 MG/0.5 ML INH INHALATION (13:41)
[2019-11-12] MEDS: PHENYTOIN SODIUM 100 MG CAP 200 MG PO (20:41)
[2019-11-13] MEDS: SODIUM CHLORIDE 0.9% IV 1,000 ML 75 ML IV CONT (01:19)
[2019-11-13 06:00] VITALS: BP 116/61; PULSE 101; RESP 18; TEMP 36.7; O2SAT 96
[2019-11-13 06:15] LABS: Hematocrit 35.9 % (37.0-47.0); Mean Corpuscular HGB Conc 33.4 g/dl (32-36); Mean Corpuscular Hemoglobin 32.5 pg (26-34); Mean Corpuscular Volume 97.3 fl (80-100); Mean Platelet Volume 9.8 fl (7.4-10.4); Platelet Count Result 271 k/mm3 (150-375); Red Blood Count 3.69 M/mm3 (4.2-5.4); Red Cell Distribution Width 12.9 % (11.5-14.5)
[2019-11-13 06:27] LABS: Alanine Aminotransferase 12 U/L (4-35); Albumin Level 3.5 g/dL (3.5-5.1); Alkaline Phosphatase 106 U/L (38-126); Aspartate Amino Transferase 20 U/L (14-36); Bilirubin,Total 0.4 mg/dL (0.2-1.3); Blood Urea Nitrogen 6 mg/dL (7-17); Calcium 8.5 mg/dL (8.4-10.2); Carbon Dioxide 19 mmol/L (22-30); Chloride 110 mmol/L (98-107); Estimated CRCL calculation 78 ml/min; Estimated Glomerular Filt Rate > 60; Glucose 92 mg/dL (65-105); Potassium 3.5 mmol/L (3.4-5.0); Sodium 137 mmol/L (137-145)
[2019-11-13 09:02] VITALS: PULSE 100
[2019-11-13] MEDS: PROPRANOLOL HCL 10 MG TABLET PO (09:02)
[2019-11-13] MEDS: LOPERAMIDE HCL 2 MG CAPSULE PO ×2 (09:02→17:25)
[2019-11-13] MEDS: PRIMIDONE 250 MG TABLET PO ×3 (09:03→17:25)
--- NOTE | 2019-11-13 10:20 | PCOTNOTE ---
Patient sleeping soundly and breakfast uneaten this am
--- NOTE | 2019-11-13 12:19 | PM.IMPN ---
Progress Note: A&P Assessment and Plan (1) Acute pancreatitis: Qualifiers: Acute pancreatitis complication: no infection or necrosis Pancreatitis type: unspecified pancreatitis type Qualified Code(s): K85.90 - Acute pancreatitis without necrosis or infection, unspecified Code(s): K85.90 - Acute pancreatitis without necrosis or infection, unspecified Status: Acute Assessment and Plan: CT scan of abdomen/pelvis with stable 14.7 cm cystic mass of the pancreas and no obvious sign of pancreatitis but lipase elevated to 1091 at admission. LFTs are normal. WBC is normal. Lipase now also normal. Did tolerate clear liquids last night. Patient agreeable to low-fat diet as it is less likely to cause issues with diarrhea will stand will give her lunch. Anticipate discharge back to rehab today as long as COVID-19 testing-results are available. COVID-19 testing negative. Will discharge today. (2) Pancreatic cyst: Code(s): K86.2 - Cyst of pancreas Status: Chronic Assessment and Plan: Stable by CT imaging as noted above. Continue treatment as noted above. (3) Reflux esophagitis: Code(s): K21.0 - Gastro-esophageal reflux disease with esophagitis Status: Chronic Assessment and Plan: Continue Protonix. Presently stable. (4) Dehydration: Code(s): E86.0 - Dehydration Status: Acute Assessment and Plan: Mild dehydration clinically at presentation. Now resolved. Discontinue IV fluids. (5) Seizures: Code(s): R56.9 - Unspecified convulsions Status: Chronic Assessment and Plan: No seizure activity at this time. Continue phenytoin and primidone. (6) Migraine headache: Qualifiers: Intractability: not intractable Migraine type: unspecified Status migrainosus presence: without status migrainosus Qualified Code(s): G43.909 - Migraine, unspecified, not intractable, without status migrainosus Code(s): G43.909 - Migraine, unspecified, not intractable, without status migrainosus Status: Chronic Assessment and Plan: During her last stay, patient's prophylactic propranolol was discontinued due to hypotension. Low dose propranolol restarted while here. Blood pressure reviewed on 11/13/2019 and stable. Continue current propranolol. May also resume Fiorinal at nursing facility. (7) Closed right fibular fracture: Qualifiers: Encounter type: initial encounter Fibula location: distal Fracture morphology: unspecified fracture morphology Qualified Code(s): S82.831A - Other fracture of upper and lower end of right fibula, initial encounter for closed fracture Code(s): S82.401A - Unspecified fracture of shaft of right fibula, initial encounter for closed fracture Status: Chronic Assessment and Plan: Continue PT/OT. (8) Need for discharge planning: Status: Acute Assessment and Plan: COVID-19 test ordered as needed for readmission to [facility]. Testing is negative. (9) DVT prophylaxis: Code(s): Z29.9 - Encounter for prophylactic measures, unspecified Status: Acute Assessment and Plan: SCDs. Time Spent With Patient Time with patient: 15 - 25 minutes Subjective Date/time seen: 11/13/19 12:19 Interval history: Date of Service; 11/13/2019. Admitted with acute pancreatitis. Sitting in chair currently. Feels better. Hesitant to eat as worried about having diarrhea. No nausea or vomiting. No abdominal pain. No chest pain. No shortness of breath. No pain in right leg. Review of Systems Review of Systems: Narrative: Feeling better. Constitutional: Constitutional: Denies chills and Denies fever(s) ENT: Denies dysphagia Cardiovascular: Cardiovascular: Denies chest pain Respiratory: Respiratory: Denies dyspnea Gastrointestinal: Gastrointestinal: Denies abdominal pain, Denies nausea and Denies vomiting Genitourinary:
[2019-11-13 13:39] LABS: SARS-CoV-2 RNA PCR Negative
[2019-11-13 14:00] VITALS: BP 113/67; PULSE 95; RESP 18; TEMP 36.8; O2SAT 97
--- NOTE | 2019-11-13 16:46 | PCCCNOTE ---
discharge packet provided per nurse request. Facesheet, H&P, labs/medications and discharge isntructions
--- NOTE | 2019-11-13 18:32 | PM.DS ---
DS: Admitting Diagnosis Admitting Diagnosis Admitting Diagnosis: Acute pancreatitis without necrosis or infection, unspecified DS: Discharge Diagnosis Discharge Diagnosis (1) Acute pancreatitis: Qualifiers: Acute pancreatitis complication: no infection or necrosis Pancreatitis type: unspecified pancreatitis type Qualified Code(s): K85.90 - Acute pancreatitis without necrosis or infection, unspecified Code(s): K85.90 - Acute pancreatitis without necrosis or infection, unspecified Status: Acute (2) Pancreatic cyst: Code(s): K86.2 - Cyst of pancreas Status: Chronic (3) Reflux esophagitis: Code(s): K21.0 - Gastro-esophageal reflux disease with esophagitis Status: Chronic (4) Dehydration: Code(s): E86.0 - Dehydration Status: Acute (5) Seizures: Code(s): R56.9 - Unspecified convulsions Status: Chronic (6) Migraine headache: Qualifiers: Intractability: not intractable Migraine type: unspecified Status migrainosus presence: without status migrainosus Qualified Code(s): G43.909 - Migraine, unspecified, not intractable, without status migrainosus Code(s): G43.909 - Migraine, unspecified, not intractable, without status migrainosus Status: Chronic (7) Closed right fibular fracture: Qualifiers: Encounter type: initial encounter Fibula location: distal Fracture morphology: unspecified fracture morphology Qualified Code(s): S82.831A - Other fracture of upper and lower end of right fibula, initial encounter for closed fracture Code(s): S82.401A - Unspecified fracture of shaft of right fibula, initial encounter for closed fracture Status: Chronic DS: Summary Hospital Course Reason for hospitalization: Upper abdominal pain. Hospital Course: Date of Service of Discharge: November 13, 2019. History of Present Illness: Patient is a 69-year-old with known recent diagnosis of pancreatic cyst, reflux esophagitis, recent right fibular fracture and migraine headaches currently at [facility] due to the fibular fracture who was sent to the emergency room due to upper abdominal pain. She reports no unusual activity on the day prior to presentation. She does report having upper abdominal pain described as ?a wet towel being wrung out?. She does report this caused her to double over. No nausea or vomiting. No recent constipation but does have known diarrhea issues. No fever or chills. She was recently hospitalized here at the end of September with hypotension and dehydration. She does report cough at that time has essentially resolved. She does mention being given a medication to prevent blood clots recently but that has been discontinued. No other new medications. No alcohol use. In the emergency room, findings were consistent with increased size and pancreatic cyst along with elevated lipase. As a result, she was placed in observation for further evaluation and treatment. Course in Hospital: Patient was placed in observation on the medical floor where she remained for the duration of her stay. She was initially placed NPO with IV fluids started. Lipase was elevated at 1091 on admission with LFTs and WBC normal. CT scan of the abdomen and pelvis did show a stable 14.7 cm cystic mass of the pancreas with no obvious signs of pancreatitis. Patient was able to quickly improve with bowel rest. Lipase was normal by the following day with WBC and LFTs remaining unchanged. She was started on a clear liquid diet and advanced to full liquids by the following morning. Patient was not eager to have a liquid diet due to her concerns with diarrhea. She was no longer having abdominal pain and did not have nausea or vomiting by the morning of 11/13/2019. Subsequently, she was advanced to a low-fat diet which she tolerated well without any issues. On Protonix during her stay. Dehydration did resolve with the IV fluids. Ethan
== END 2019-11-13 07:50 ==
LOC: ANHED 06:09 → ANH3MEDSUR 06:19
PROVIDERS: Physician Assistant; Admitting Provider Internal Medicine; Emergency Provider Emergency Medicine; PCP Physician Assistant; Visit Provider Hospitalist
DX: K85.90 Acute pancreatitis without necrosis or infection, unspecified (principal); K86.2 Cyst of pancreas; K21.0 Gastro-esophageal reflux disease with esophagitis; E86.0 Dehydration; R56.9 Unspecified convulsions; G43.909 Migraine, unspecified, not intractable, without status migrainosus; Z11.59 Encounter for screening for other viral diseases; S82.831D Other fracture of upper and lower end of right fibula, subsequent encounter for closed fracture with routine healing
CPT/HCPCS: 36415; 74177; 80053; 81001; 83605; 83690; 85025; 85027; 85610; 85730; 87086; 87088; 87635; 94640; 96361; 96374; 96375; 97110; 97116; 97162; 97165; 97530; 99285; A9270; C9803; G0378; G0379; J0131; J3010; J7030; Q9967; U0003

== ENCOUNTER 2021-04-02 23:20 | Emergency (ER) | payer OTHER, SELFPAY ==
--- NOTE | ~2021-04-02 | XR_ITS ---
XR ankle LT min 3V 04/02/2021 23:52 Indication: Left ankle pain Procedure: 3 views left ankle Comparison: 08/17/2019 Findings: There are is a mildly displaced medial malleolar fracture. There is moderate diffuse soft t issue swelling. Ankle mortise intact. Talar dome is normal. Lateral malleolus appears to be intact. Impression: 1: Mildly displaced medial malleolar fracture. Moderate diffuse soft tissue swelling. Reviewed, dictated and finalized at location A. Impression: 1: Mildly displaced medial malleolar fracture. Moderate diffuse soft tissue swe lling.
[2021-04-02 23:24] VITALS: BP 111/64; PULSE 102; RESP 14; TEMP 37; O2SAT 97
[2021-04-02 23:55] VITALS: BP 111/64; PULSE 102; RESP 16; TEMP 37; O2SAT 97
--- NOTE | 2021-04-03 00:28 | ED.LOWEXIN ---
HPI - Extremity Injury (Lower) General Chief Complaint: Extremity Injury, Lower Stated Complaint: fall Time Seen by Provider: 04/03/21 00:08 Source: patient Mode of arrival: wheelchair Limitations: no limitations History of Present Illness HPI Narrative: Patient is a 71-year-old female complaining of left ankle pain after she tripped and fell prior to arrival. Patient states that her ankle got caught in a furniture and it bent awkwardly. Patient states that her pain is an 8 out of 10, dull, aching, worse with palpation and movement. Patient denies any head, neck, chest, back or any other extremity pain/injury. Related Data Home Medications Medication Instructions Recorded Confirmed aspirin [Tank Aspirin] 325 mg PO DAILY 08/18/19 11/11/19 albuterol sulfate 2.5 mg INHALATION Q4H PRN 09/28/19 11/11/19 dextromethorphan-guaifenesin 1 tablet PO Q12H PRN 09/28/19 11/11/19 ipratropium bromide 3 ml INHALATION TID 09/28/19 11/11/19 Excedrin Migraine 1 tablet PO Q4-6H PRN 11/11/19 11/11/19 Allergies Allergy/AdvReac Type Severity Reaction Status Date / Time diphenhydramine Allergy Severe Other Verified 04/03/21 00:01 morphine Allergy Severe Other Verified 04/03/21 00:01 DIURETICS AdvReac Intermediate Palpitation Uncoded 04/03/21 00:01 s Review of Systems Review of Systems: All systems reviewed & are unremarkable except as noted in HPI and below Constitutional: Constitutional: Reports as per HPI [facility] Past Medical History Medical History Migraine headache MVP (mitral valve prolapse) Pancreatic cyst Reflux esophagitis Seizures Surgical History Surgical History H/O: hysterectomy Family History Family History Mother Uterine cancer Father Emphysema lung Mesothelioma Sibling Asthma Bronchitis Social History Social History Social History: Patient currently at [facility] for rehab. Does have a roommate when at home. She is a never smoker. No alcohol use. She has no POA. She has no children. She is a full code. Smoking status: Never smoker Second hand tobacco smoke exposure: Yes Alcohol intake: never Substance use: never Additional living arrangements comments: Currently residing at [facility] Gender identity (if verbalized by the patient): Female Spiritual care concerns: No Agree to blood products: Yes Exam Const: General: cooperative, healthy appearing, comfortable, no acute distress, well developed, alert and awake; No confusion Orientation/consciousness: oriented to person, oriented to place, oriented to time, patient oriented x3 and No confusion Limitations: no limitations HENMT: Head: normal to inspection, normocephalic and atraumatic Ears: hearing grossly normal bilaterally, TM normal on the right and TM normal on the left General nose exam: Normal external nose present, Normal nares present and No nasal discharge present Face and sinus: normal facial exam Mouth: Yes Normal oral and palatal mucosa present, Yes lip normal, Yes tongue normal and Yes oropharynx normal Throat: posterior oropharynx normal, tonsils normal and uvula midline Eyes: General: appearance normal, both eyes and all related structures Pupils: Equal, round and reactive pupils present EOM: EOMs intact bilaterally Neck: Neck: normal visual inspection, full ROM, no lymphadenopathy and no meningeal signs Chest: Chest palpation & inspection: normal inspection of the chest Resp: Effort & Inspection: normal respiratory effort, able to speak in complete sentences, no respiratory distress and not tachypneic Auscultation: clear to auscultation bilaterally, no crackles, no rales, no rhonchi and no wheezes Cardio: Rate: regular rate Rhythm: regular rhythm
[2021-04-03] MEDS: HYDROcodone/acetaminophen (*CRX) 5-325 MG TABLET 1 TAB PO (00:47)
[2021-04-03 01:44] VITALS: BP 126/70; PULSE 75; RESP 16; O2SAT 97
== END 2021-04-03 01:56 | disposition home or self-care (01) ==
PROVIDERS: Emergency Provider Emergency Medicine; PCP Physician Assistant
DX: S82.52XA Displaced fracture of medial malleolus of left tibia, initial encounter for closed fracture (principal); I34.1 Nonrheumatic mitral (valve) prolapse; K21.00 Gastro-esophageal reflux disease with esophagitis, without bleeding; Z79.82 Long term (current) use of aspirin; W01.0XXA Fall on same level from slipping, tripping and stumbling without subsequent striking against object, initial encounter
CPT/HCPCS: 29515; 73610; 99284; A9270

== ENCOUNTER 2021-08-24 16:43 | Emergency (ER) | payer OTHER, SELFPAY ==
[2021-08-24] VITALS (30 sets, daily range): BP systolic 97–127; BP diastolic 53–89; PULSE 82–97; RESP 13–21; TEMP 36.4; O2SAT 94–98
--- NOTE | ~2021-08-24 | CT_ITS ---
EXAMINATION: CTA chest PE protocol DATE: 08/24/2021 19:01 INDICATION: Hypoxia TECHNIQUE: Computed tomography angiography (CTA) of the chest was performed with 100 mL Omnipaque-350 intravenous contrast timed to evaluate the pulmonary arteries. Coronal maximum intensity projection 3D-reconstructions were created by the technologist. Automated exposure control and iterative reconst ruction technique were employed. Exam dose: 510.25 mGy-cm total exam DLP. COMPARISON: portable AP chest FINDINGS: There is diagnostic contrast enhancement of the pulmonary arteries and no evidence of pulmo nary embolism. No hilar or mediastinal mass lesion or lymphadenopathy. No thoracic aortic aneurysm or dissection. There is discoid atelectasis or scarring in the left lower lobe. No pulmonary infiltrate or consolida tion or suspicious pulmonary mass density is noted. Large osteolytic lesion at the posterior aspect of the right ninth rib multiple additional bilateral rib lytic lesions are noted with pathologic fracture at the lateral right fifth rib. Osteolytic lesion of the left scapula. Multiple osteolytic lesions of the skeleton. Postoperative davidson nges from posterior fusion of the thoracolumbar area. 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 Reviewed, dictated and finalized at [facility]. 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
--- NOTE | 2021-08-24 17:03 | ECG_ITS ---
Measurements Intervals [place] Rate: 81 P: 23 NC: 142 QRS: -1 QRSD: 85 T: 29 QT: 396 QTc: 462 Interpretive Statements SINUS RHYTHM PROBABLE INFERIOR MYOCARDIAL INFARCTION , PROBABLY OLD WITH POSTERIOR EXTENSION [35 ms Q WAVE IN II/aVFPROMINENT R WAVE IN V1/ NONSPECIFIC T-WAVE ABNORMALITY ABNORMAL ECG COMPARED TO ECG 09/28/2019 21:06:56 NO SIGNIFICANT CHANGES Electronically Signed On 08-25-2021 9:23:19 CDT by Jourdan Yoon M.D.
--- NOTE | 2021-08-24 17:17 | ED.ARRPALP ---
HPI - Arrhythmia/Palpitations General Chief Complaint: Arrhythmia/Palpitations Stated Complaint: low bp, high heart rate Time Seen by Provider: 08/24/21 16:50 Source: patient History of Present Illness HPI narrative: Patient was recently evaluated at [facility] she was found to have metastatic breast cancer and pathologic fractures to the spine she had a PSIF T6-L2 and a T8 corpectomy with T7 and 8 laminectomy as well as tumor resection for T8. Patient was discharged this morning to a [place] rehab facility patient's blood pressure at time of discharge was in the 90s systolic BLS team transported the patient to the rehab facility however prior to reaching the rehab facility blood pressure dropped to the 80s systolic and patient appeared to be hypoxic to the 80s. We were the closest hospital and patient was rerouted to our facility Related Data Home Medications Medication Instructions Recorded Confirmed aspirin [Tank Aspirin] 325 mg PO DAILY 08/18/19 11/11/19 albuterol sulfate 2.5 mg INHALATION Q4H PRN 09/28/19 11/11/19 dextromethorphan-guaifenesin 1 tablet PO Q12H PRN 09/28/19 11/11/19 ipratropium bromide 3 ml INHALATION TID 09/28/19 11/11/19 Excedrin Migraine 1 tablet PO Q4-6H PRN 11/11/19 11/11/19 Allergies Allergy/AdvReac Type Severity Reaction Status Date / Time diphenhydramine Allergy Severe Other Verified 04/03/21 00:01 morphine Allergy Severe Other Verified 04/03/21 00:01 DIURETICS AdvReac Intermediate Palpitation Uncoded 04/03/21 00:01 s Review of Systems Review of Systems: CONSTITUTIONAL: Denies fever, chills, or sweats. EYES: Denies visual changes, redness, or discharge. ENT: Denies rhinorrhea, congestion, sore throat, or otalgia. CARDIOVASCULAR: Denies chest pain, palpitations, or edema. RESPIRATORY: Denies cough or dyspnea. GASTROINTESTINAL: Denies abdominal pain, nausea, vomiting, or diarrhea. GENITOURINARY: Denies dysuria or hematuria. SKIN: Denies rash or itching. MUSCULOSKELETAL: Denies back pain, joint pain, or myalgia. NEUROLOGIC: Denies headache, numbness, dizziness, or weakness. PSYCHIATRIC: Denies anxiety or depression. All systems reviewed & are unremarkable except as noted in HPI and below PMFSH Past Medical History Medical History Migraine headache MVP (mitral valve prolapse) Pancreatic cyst Reflux esophagitis Seizures Surgical History Surgical History H/O: hysterectomy Family History Family History Mother Uterine cancer Father Emphysema lung Mesothelioma Sibling Asthma Bronchitis Social History Social History Social History: Patient currently at [facility] facility for rehab. Does have a roommate when at home. She is a never smoker. No alcohol use. She has no POA. She has no children. She is a full code. Smoking status: Never smoker Second hand tobacco smoke exposure: Yes Alcohol intake: never Substance use: never Additional living arrangements comments: Currently residing at [facility] Gender identity (if verbalized by the patient): Female Spiritual care concerns: No Agree to blood products: Yes Exam Narrative: GENERAL: Well-appearing, well-nourished, and in no acute distress. HEAD: Normocephalic, atraumatic. EYES: PERRLA and EOMI. ENT: Nares clear, no rhinorrhea or epistaxis. Mucous membranes moist. NECK: Supple. No masses. No JVD CHEST: Clear to auscultation. No respiratory distress. No wheezes rales or rhonchi HEART: Regular rate and rhythm. No murmur heard. Normal peripheral pulses. ABDOMEN: Soft, nontender, nondistended, normal active bowel sounds. EXTREMITIES: Normal range of motion. No edema. SKIN: Warm, dry, no rash. NEURO: No focal deficits. Alert PSYCH: Normal mood and affect.
[2021-08-24 18:03] LABS: Basophils Absolute Auto 0.1 K/mm3 (0.0-0.1); Basophils Percent Auto 0.9 % (0.2-1.2); Eosinophils Absolute Auto 0.3 K/mm3 (0-0.3); Eosinophils Percent Auto 2.6 % (0-4.4); Hematocrit 33.5 % (37.0-47.0); Hemoglobin 10.5 g/dL (12.0-15.0); Immature Granulocyte Absolute 0.19 K/mm3 (0.00-0.031); Immature Granulocyte Percent A 1.9 % (0-0.5); Lymphocytes Absolute Auto 1.86 K/mm3 (0.9-3.2); Lymphocytes Percent Auto 18.3 % (18.3-44.2); Mean Corpuscular HGB Conc 31.3 g/dl (32-36); Mean Corpuscular Hemoglobin 31.9 pg (26-34); Mean Corpuscular Volume 101.8 fl (80-100); Mean Platelet Volume 9.2 fl (7.4-10.4); Monocytes Absolute Auto 1.5 K/mm3 (0.1-0.6); Monocytes Percent Auto 14.4 % (2.6-8.5); Neutrophils Absolute Auto 6.3 K/mm3 (1.3-6.7); Neutrophils Percent Auto 61.9 % (45.5-73.1); Platelet Count Result 470 k/mm3 (150-375); Red Blood Count 3.29 M/mm3 (4.2-5.4); White Blood Count 10.2 K/mm3 (4.5-10.0)
[2021-08-24 18:16] LABS: Prothrombin Time 13.1 Seconds (11.1-14.7)
[2021-08-24 18:17] LABS: Partial Thromboplastin Time 32.7 SECONDS (22.3-36.8)
[2021-08-24 18:18] LABS: Lactic Acid Reflex 1.2 mmol/L (0.7-2.1)
[2021-08-24 18:20] LABS: Alanine Aminotransferase 9 U/L (4-35); Albumin Level 3.3 g/dL (3.5-5.1); Alkaline Phosphatase 135 U/L (38-126); Anion Gap 6 mmol/L (8-16); Aspartate Amino Transferase 36 U/L (14-36); Bilirubin,Total 0.4 mg/dL (0.2-1.3); Blood Urea Nitrogen 15 mg/dL (7-17); Calcium 8.6 mg/dL (8.4-10.2); Carbon Dioxide 31 mmol/L (22-30); Chloride 98 mmol/L (98-107); Estimated CRCL calculation 64 ml/min; Estimated Glomerular Filt Rate > 60; Glucose 131 mg/dL (65-110); Sodium 135 mmol/L (137-145)
[2021-08-24 18:41] LABS: Add Urine Microscopic? YES; Amorphous Sediment Urine Few; Appearance Urine Cloudy (Clear); Bilirubin Urine 1+ (Negative); Blood Urine 1+ (Negative); Color Urine Amber (Yellow); Glucose Urine UA Negative (Negative); Ketones Urine Trace mg/dL (Negative); Leukocyte Esterase Ur Negative LEU/UL (Negative); Mucus Urine Rare /lpf; Nitrate Urine Negative (Negative); Protein Urine Negative (Negative); RBC Urine 21-50 /hpf (0-2); Specific Grav Ur 1.026 (1.001-1.035); Squamous Epithelial Cell Urine Moderate /hpf (Few); Urobilinogen Urine Negative mg/dL (<2.0); WBC Urine 0-3 /hpf
[2021-08-25] VITALS: BP 111/61
[2021-08-25 00:30] VITALS: BP 124/73
[2021-08-25] MEDS: HYDROcodone/acetaminophen (*CRX) 5-325 MG TABLET 1 TAB PO (00:55)
[2021-08-25 01:09] VITALS: PULSE 85; RESP 18; O2SAT 96
[2021-08-25 01:15] VITALS: PULSE 88; RESP 14; O2SAT 97
[2021-08-25 01:40] VITALS: PULSE 86; RESP 13; O2SAT 97
[2021-08-25 01:45] VITALS: PULSE 88; RESP 19; O2SAT 97
== END 2021-08-25 02:10 ==
PROVIDERS: Emergency Provider Emergency Medicine; PCP Physician Assistant
DX: I95.9 Hypotension, unspecified (principal); C50.919 Malignant neoplasm of unspecified site of unspecified female breast; C79.51 Secondary malignant neoplasm of bone; I34.1 Nonrheumatic mitral (valve) prolapse; K21.00 Gastro-esophageal reflux disease with esophagitis, without bleeding
CPT/HCPCS: 36415; 71275; 80053; 81001; 83605; 85025; 85610; 85730; 93005; 96374; 99284; A9270; J0131; Q9967

== ENCOUNTER 2021-09-04 09:39 | Emergency (ER) | payer OTHER, SELFPAY ==
[2021-09-04] VITALS (12 sets, daily range): BP systolic 105–122; BP diastolic 51–82; PULSE 95; RESP 16; TEMP 36.9; O2SAT 92–98
--- NOTE | ~2021-09-04 | CT_ITS ---
EXAMINATION:CT diagnostic chest wo con DATE: 09/04/2021 10:24 INDICATION: Rib pain. TECHNIQUE: Computed tomography (CT) of the chest was performed without intravenous contrast. Automate d exposure control and iterative reconstruction technique were employed. The dose-length product (DLP ) was 210.96 mGy-cm. COMPARISON: Chest CT 08/24/2021 FINDINGS: The lungs demonstrate mild atelectasis. No pleural effusion. The heart size is normal. No p ericardial effusion. There is a 1.7 x 1.2 cm mass in upper inner right breast. There are changes of c holecystectomy. There are widespread aggressive lytic lesions of bone. There are changes of posterior fusion procedure from T6 to the lumbar spine. There are changes of T8 corpectomy with an implant bet ween T7 and T9 vertebral bodies. Again seen is an inferior facet fracture of T8 on the left. There is a burst fracture of superior endplate of T12 with retropulsion of bone 4 mm into central spinal aguilar l, stable from 08/24/21. There are healing pathologic fractures of right 5th, 6th, and 8th ribs and le ft 3rd, 4th, and 7th ribs. There is an acute pathologic fracture of left ninth rib. IMPRESSION: 1. Acute left ninth rib pathologic fracture, new from 08/24/2021. 2. Widespread lytic lesions of bone, consistent with metastatic disease. 3. Right breast mass, consistent with primary malignancy. Reviewed, dictated and finalized at [facility].
--- NOTE | 2021-09-04 10:06 | ED.FALL ---
HPI - Fall General Chief Complaint: Fall Stated Complaint: fall out of bed Time Seen by Provider: 09/04/21 09:48 History of Present Illness HPI Narrative: 71-year-old female presents to the emergency room with complaints of a right-sided rib/chest pain. Patient states that she was reaching for an object on the side table while lying in bed, states she reached too far in and fell out of bed landing on her right side. Patient has significant history of pathological thoracic fractures, and is supposed to be wearing a TLSO device. Patient states she was not wearing the device while she was sleeping. When EMS arrived they placed the TLSO device back on her. Patient denies syncopal episode, lightheadedness, shortness of breath, or dizziness. Patient denies hitting her head. Related Data Home Medications Medication Instructions Recorded Confirmed aspirin [Tank Aspirin] 325 mg PO DAILY 08/18/19 11/11/19 albuterol sulfate 2.5 mg INHALATION Q4H PRN 09/28/19 11/11/19 dextromethorphan-guaifenesin 1 tablet PO Q12H PRN 09/28/19 11/11/19 ipratropium bromide 3 ml INHALATION TID 09/28/19 11/11/19 Excedrin Migraine 1 tablet PO Q4-6H PRN 11/11/19 11/11/19 Allergies Allergy/AdvReac Type Severity Reaction Status Date / Time diphenhydramine Allergy Severe Other Verified 09/04/21 09:52 morphine Allergy Severe Other Verified 09/04/21 09:52 DIURETICS AdvReac Intermediate Palpitation Uncoded 04/03/21 00:01 s Review of Systems Review of Systems: CONSTITUTIONAL: Denies fever, chills, or sweats. EYES: Denies visual changes, redness, or discharge. ENT: Denies rhinorrhea, congestion, sore throat, or otalgia. CARDIOVASCULAR: Denies chest pain, palpitations, or edema. RESPIRATORY: Denies cough or dyspnea. GASTROINTESTINAL: Denies abdominal pain, nausea, vomiting, or diarrhea. GENITOURINARY: Denies dysuria or hematuria. SKIN: Denies rash or itching. MUSCULOSKELETAL: Reports back pain, reports right rib cage pain NEUROLOGIC: Denies headache, numbness, dizziness, or weakness. PSYCHIATRIC: Denies anxiety or depression. [facility] Past Medical History Medical History Migraine headache MVP (mitral valve prolapse) Pancreatic cyst Reflux esophagitis Seizures Surgical History Surgical History H/O: hysterectomy Family History Family History Mother Uterine cancer Father Emphysema lung Mesothelioma Sibling Asthma Bronchitis Social History Social History Social History: [facility]. Does have a roommate when at home. She is a never smoker. No alcohol use. She has no POA. She has no children. She is a full code. Smoking status: Never smoker Second hand tobacco smoke exposure: Yes Alcohol intake: never Substance use: never Additional living arrangements comments: Currently residing at [facility] Gender identity (if verbalized by the patient): Female Spiritual care concerns: No Agree to blood products: Yes Exam Narrative: GENERAL: Well-appearing, well-nourished, and in no acute distress. HEAD: Normocephalic, atraumatic. EYES: PERRLA and EOMI. ENT: Nares clear, no rhinorrhea or epistaxis. Mucous membranes moist. NECK: Supple. No tenderness CHEST: Clear to auscultation. No respiratory distress. No wheezes rales or rhonchi; tenderness to the right ribs, extending from the mid clavicular area to the mid axillary area no obvious bony abnormalities, no ecchymosis, HEART: Regular rate and rhythm. No murmur heard. Normal peripheral pulses. ABDOMEN: Soft, nontender, nondistended, normal active bowel sounds. EXTREMITIES: Normal range of motion. No edema. BACK: Nontender SKIN: Warm, dry, no rash. NEURO: No focal deficits. Alert and orien
== END 2021-09-04 13:05 ==
PROVIDERS: Emergency Provider Nurse Practitioner Family; PCP Physician Assistant
DX: S22.31XA Fracture of one rib, right side, initial encounter for closed fracture (principal); I34.1 Nonrheumatic mitral (valve) prolapse; K21.00 Gastro-esophageal reflux disease with esophagitis, without bleeding; C50.911 Malignant neoplasm of unspecified site of right female breast; C79.51 Secondary malignant neoplasm of bone; W06.XXXA Fall from bed, initial encounter; Z79.82 Long term (current) use of aspirin
CPT/HCPCS: 71250; 99284